=== PATIENT | male | born 1955 | race Caucasian/White ===

== ENCOUNTER 2019-02-06 17:39 | Emergency (ER) | payer MEDICARE, SELFPAY ==
[2019-02-06 17:47] VITALS: BP 109/78; PULSE 83; RESP 20; TEMP 36.9; O2SAT 96; BMI 31.5
--- NOTE | 2019-02-06 17:51 | DI.RAD.S_ITS ---
PROCEDURE: XR LUMBAR SPINE 2-3V INDICATIONS: fall 25 days ago, severe pain TECHNIQUE: 3 views of the lumbar spine were acquired. COMPARISON: CT abdomen and pelvis 05/14/2016. FINDINGS: Bones: 5 [id number] vertebrae are present. There is normal bony alignment. No vertebral body compression fractures. No suspicious bony lesions. Soft tissues: Overlying bowel gas pattern is nonobstructive. No suspicious soft tissue calcifications. Vascular calcifications. Stimulator device overlying the left back with the leads projecting over the lower thoracic spine. IMPRESSION: No acute osseous abnormality demonstrated. Dictated by: Kana Garber M.D. on 02/06/2019 at 18:30 Approved by: Kana Garber M.D. on 02/06/2019 at 18:34
--- NOTE | 2019-02-06 19:31 | DI.RAD.S_ITS ---
PROCEDURE: XR SACRUM COCCYX MIN 2V INDICATIONS: glf TECHNIQUE: 3 views of the sacrum and coccyx acquired. COMPARISON: Same day lumbar spine radiographs. FINDINGS: Bones: No fractures or dislocations. No suspicious bony lesions. Soft tissues: Visualized bowel gas pattern is normal. Vascular calcifications. No suspicious soft tissue densities. Generator device overlying the left. IMPRESSION: No fracture or dislocation seen. Dictated by: Kana Garber M.D. on 02/06/2019 at 20:06 Approved by: Kana Garber M.D. on 02/06/2019 at 20:06
[2019-02-06] MEDS: KETOROLAC 60 MG/2 ML VIAL IM (19:54)
[2019-02-06] MEDS: CYCLOBENZAPRINE 10 MG TABLET PO (19:54)
[2019-02-06] MEDS: LIDOCAINE PATCH 1 EACH ADH..PATCH TOP (19:55)
[2019-02-06] MEDS: HYDROCODONE/ACET 5/325 TABLET 1 TAB PO (20:36)
[2019-02-06 20:37] VITALS: BP 103/76; PULSE 94; RESP 17; O2SAT 98
--- NOTE | 2019-02-06 21:07 | ED.BACK ---
HPI - Back Pain/Injury <SHARON Solorzano - Last Filed: 02/06/19 21:39> General Chief Complaint: Back Pain/Injury Stated Complaint: BACK PAIN Time Seen by Provider: 02/06/19 18:52 Source: patient Mode of arrival: ambulatory Limitations: no limitations History of Present Illness HPI Narrative: The patient is a 63-year-old male current everyday smoker who presents with a chief complaint of lower back pain. He states he fell a month ago landed on his butt in the bathroom. He states he tripped and fell. The patient does admit that he is an alcoholic, drinking at least 6 drinks a night. He states he falls when he drinks. He does not want any help for his alcoholism, declines any thoughts of hurting himself or anybody else. Regarding his back pain he denies any incontinence of bowel, incontinence of bladder or saddle anesthesia. He has not taken anything for the pain other than alcohol. He presents requesting admission for his pain control and because he has no idea how he will get home today. He does state that his friend dropped him off. That he repeatedly states he does not want help for his alcoholism. Related Data Home Medications Medication Instructions Recorded Confirmed gabapentin [Neurontin] 3 tab PO TID #0 09/20/11 oxycodone-acetaminophen 1 - 2 tab PO Q4HP PRN #0 09/20/11 doxazosin [Cardura] 4 mg PO TID #0 04/22/16 cyclobenzaprine 1 tab PO TID #0 05/09/16 Previous Rx's Medication Instructions Recorded lorazepam [Ativan] 1 mg PO QHS PRN PRN #10 tab 05/17/16 oxycodone-acetaminophen 1 - 2 tab PO Q4HP PRN #20 tab 05/17/16 lorazepam [Ativan] 0.5 mg PO TIDP PRN #10 tab 05/28/16 cyclobenzaprine 10 mg PO TID PRN #14 tab 02/06/19 ketorolac 10 mg PO TID PRN #20 tab 02/06/19 lidocaine 1 patch TOP DAILY #15 each 02/06/19 Allergies Allergy/AdvReac Type Severity Reaction Status Date / Time No Known Drug Allergies Allergy Verified 02/06/19 17:50 Review of Systems <SHARON Solorzano - Last Filed: 02/06/19 21:39> Review of Systems GENERAL: Denies chills, fatigue, malaise, fever, sweats. HEENT: Denies sinus pain, ear pain, sore throat, difficulty swallowing, dizziness. RESPIRATORY: Denies dyspnea, cough, wheezing, hemoptysis, sputum. CARDIOVASCULAR: Denies chest pain, palpitations, orthopnea, edema, GASTROINTESTINAL: Denies nausea, vomiting, abdominal pain, diarrhea, constipation, melena. : Denies dysuria, frequency, incontinence, hematuria, urinary retention. MUSCULOSKELETAL: See HPI SKIN: Denies rash, skin lesions, or other NEUROLOGIC: Denies weakness, headache, numbness, change in speech, confusion, seizures, incoordination. PSYCHIATRIC: See HPI 12 point review of systems is negative except for those stated above PFSH <SHARON Solorzano - Last Filed: 02/06/19 21:39> Medical History (Updated 02/06/19 @ 21:37 by SHARON Solorzano) Alcohol abuse (Acute) Social History Smoking Status: Current every day smoker Social History Smoking Status: Current every day smoker Exam <SHARON Solorzano - Last Filed: 02/06/19 21:39> Narrative Exam Narrative: GENERAL: umkempt, chronically ill-appearing male lying on stretcher HEAD: Atraumatic. Normocephalic. No temporal or scalp tenderness. EYES: Pupils equal round and reactive. Extraocular motions intact. No scleral icterus. No injection or drainage. ENT: Nose without bleeding, purulent drainage or septal hematoma. Throat without erythema, tonsillar hypertrophy or exudate. Uvula midline. Airway patent. NECK: Trachea midline. No JVD or lymphadenopathy. Supple, nontender, no meningeal signs. CARDIOVASCULAR: Regular rate and rhythm RESPIRATORY: Diffuse expiratory wheezes to auscultation. Breath sounds equal bilaterally. No rales, or rhonchi. No increased respiratory effort. No accessory muscle use. No stridor. GASTROINTESTINAL: Abdomen soft, non-tender, nondistended. No hepato-splenomegaly, or palpable masses. No guarding. Active bowel sounds all 4 quadrants. EXTREMITIES: No clubbing, cyanosis, or edema. No joint tenderness, effusion, or edema noted. BACK: No pain to see her T-spine palpation. Patient has pain to L spine palpation as well as sacrum and coccyx. NEURO: AOx3. No gross cranial nerve deficit. Strength is equal upper and lower extremities bilaterally. Stable gait. SKIN: No rash or erythema. No ecchymosis noted on lower back or buttocks. Initial Vital Signs Initial Vital Signs: Vital Signs Temperature 98.4 F 02/06/19 17:47 Pulse Rate 83 02/06/19 17:47 Respiratory Rate 20 02/06/19 17:47 Blood Pressure 109/78 02/06/19 17:47 Pulse Oximetry 96 02/06/19 17:47 <Antonio Webb DO - Last Filed: 02/06/19 21:56> Initial Vital Signs Initial Vital Signs: Vital Signs Temperature 98.4 F 02/06/19 17:47 Pulse Rate 83 02/06/19 17:47 Respiratory Rate 20 02/06/19 17:47 Blood Pressure 109/78 02/06/19 17:47 Pulse Oximetry 96 02/06/19 17:47 Course <ANTONIO Solorzano-BC - Last Filed: 02/06/19 21:39> Orders Ordered: ED Orders 02/06/19 17:51 XR lumbar spine 2-3V Stat 02/06/19 19:31 XR sacrum coccyx min 2V Stat Discontinued Medications Hydrocodone Bitart/Acetaminophen ([place] 5/325) 1 tab PO NOW ONE Stop: 02/06/19 20:28 Last Admin: 02/06/19 20:36 Dose: 1 tab Cyclobenzaprine HCl (Flexeril) 10 mg PO NOW ONE Stop: 02/06/19 19:32 Last Admin: 02/06/19 19:54 Dose: 10 mg Ketorolac Tromethamine (Toradol) 60 mg IM NOW ONE Stop: 02/06/19 19:32 Last Admin: 02/06/19 19:54 Dose: 60 mg Lidocaine (Lidoderm) 1 each TOP NOW ONE Stop: 02/06/19 19:32 Last Admin: 02/06/19 19:55 Dose: 1 each Vital Signs - 8 hr 02/06/19 17:47 02/06/19 20:37 02/06/19 21:36 Temperature 98.4 F Pulse Rate 83 94 H 88 Respiratory Rate 20 17 16 Blood Pressure 109/78 Blood Pressure [Right Arm] 103/76 102/72 Pulse Oximetry 96 98 98 <Antonio Webb DO - Last Filed: 02/06/19 21:56> Orders Ordered: ED Orders 02/06/19 17:51 XR lumbar spine 2-3V Stat 02/06/19 19:31 XR sacrum coccyx min 2V Stat Discontinued Medications Hydrocodone Bitart/Acetaminophen ([place] 5/325) 1 tab PO NOW ONE Stop: 02/06/19 20:28 Last Admin: 02/06/19 20:36 Dose: 1 tab Cyclobenzaprine HCl (Flexeril) 10 mg PO NOW ONE Stop: 02/06/19 19:32 Last Admin: 02/06/19 19:54 Dose: 10 mg Ketorolac Tromethamine (Toradol) 60 mg IM NOW ONE Stop: 02/06/19 19:32 Last Admin: 02/06/19 19:54 Dose: 60 mg Lidocaine (Lidoderm) 1 each TOP NOW ONE Stop: 02/06/19 19:32 Last Admin: 02/06/19 19:55 Dose: 1 each Vital Signs - 8 hr 02/06/19 17:47 02/06/19 20:37 02/06/19 21:36 Temperature 98.4 F Pulse Rate 83 94 H 88 Respiratory Rate 20 17 16 Blood Pressure 109/78 Blood Pressure [Right Arm] 103/76 102/72 Pulse Oximetry 96 98 98 MDM - Back Pain/Injury <SHARON Solorzano - Last Filed: 02/06/19 21:39> Imaging Data L-spine x-ray: Radiologist's impression: [address] [address] XRay Report Signed Patient: Junior Stone GMR#: [id number] : 6Acct:[id number] Age/Sex: 63 / MDate of Service: 02/06/19 Loc: ED Accession Number: [id number] Procedure: XR lumbar spine 2-3V Ordering Provider: Saskia Blue D.O. PROCEDURE: XR LUMBAR SPINE 2-3V INDICATIONS: fall 25 days ago, severe pain TECHNIQUE: 3 views of the lumbar spine were acquired. COMPARISON: CT abdomen and pelvis 05/14/2016. FINDINGS: Bones: 5 [id number] vertebrae are present. There is normal bony alignment. No vertebral body compression fractures. No suspicious bony lesions. Soft tissues: Overlying bowel gas pattern is nonobstructive. No suspicious soft tissue calcifications. Vascular calcifications. Stimulator device overlying the left back with the leads projecting over the lower thoracic spine. IMPRESSION: No acute osseous abnormality demonstrated. Dictated by: Kana Garber M.D. on 02/06/2019 at 18:30 Approved by: Kana Garber M.D. on 02/06/2019 at 18:34 Sacrum and coccyx x-ray: Radiologist's impression: [address] [address] XRay Report Signed Patient: Junior Stone GMR#: [id number] : 6Acct:[id number] Age/Sex: 63 / MDate of Service: 02/06/19 Loc: ED Accession Number: [id number] Procedure: XR sacrum coccyx min 2V Ordering Provider: Saskia Mcghee PROCEDURE: XR SACRUM COCCYX MIN 2V INDICATIONS: glf TECHNIQUE: 3 views of the sacrum and coccyx acquired. COMPARISON: Same day lumbar spine radiographs. FINDINGS: Bones: No fractures or dislocations. No suspicious bony lesions. Soft tissues: Visualized bowel gas pattern is normal. Vascular calcifications. No suspicious soft tissue densities. Generator device overlying the left. IMPRESSION: No fracture or dislocation seen. Dictated by: Kana Garber M.D. on 02/06/2019 at 20:06 Approved by: Kana Garber M.D. on 02/06/2019 at 20:06 [facility] Narrative Medical decision making narrative: The patient is a 63-year-old male chronic alcoholic who presents a month after ground level fall with lower back pain. He has negative x-rays. He is neurovascularly intact. He is able to ambulate around the emergency department with a walker, which he states he has at home. The patient requests admission because he does not have a ride home, unfortunately this does not meet admission criteria. I did offer to help facilitate help for alcoholism, which the patient declined. He states he does not want hurt himself or anybody else. I do fear that if he continues to drink at the rate that he does, he will have more falls at home. I did speak at length with the patient's sister that the patient does not meet admission criteria. I encouraged him to follow up with primary care provider especially if the patient wants help for his alcoholism. Discussed coming back to the ER for any acute concerns. Discharge Plan Departure Patient Disposition: Home Clinical Impression: Fall from ground level, Alcoholism Back pain Qualifiers: Back pain location: low back pain Chronicity: acute Back pain laterality: bilateral Sciatica presence: without sciatica Qualified Code(s): M54.5 - Low back pain Discharge Date/Time: 02/06/19 21:44 Interventions: ED Discharge Assessment Last Done: 02/06/19 21:44 Instructions: Alcohol and Stress: There are Safer Ways to [place], Alcoholism (Alternative Therapy), Alcohol Use Disorder, DI for Low Back Pain, DI for Alcohol Abuse, How to Prevent Falls, DI for Back Strain or Sprain Activity Restrictions/Additional Instructions: Mr. Pacheco, please take care of yourself. As I discussed, I am concerned about your drinking and general self-care. Please do not drink too much as this increases your risk of injury. Your x-rays came back with no fracture. I have given you a small prescription of muscle relaxer, as well as lidocaine and anti-inflammatories. Do not combine Toradol with ibuprofen or Aleve. Please follow up with primary care provider. Please come back to the emergency department if needed. Prescriptions: New cyclobenzaprine 10 mg tablet 10 mg PO TID PRN (Reason: muscle spasm) Qty: 14 RF: 0 ketorolac 10 mg tablet 10 mg PO TID PRN (Reason: pain) Qty: 20 RF: 0 lidocaine 5 % adhesive patch,medicated 1 patch TOP DAILY Qty: 15 RF: 0 No Action gabapentin [Neurontin] 300 MG capsule 3 tab PO TID Qty: 0 RF: 0 oxycodone-acetaminophen 7.5 MG/325 MG tablet 1 - 2 tab PO Q4HP PRNQty: 0 RF: 0 doxazosin [Cardura] 1 MG tablet 4 mg PO TID Qty: 0 RF: 0 cyclobenzaprine 10 MG tablet 1 tab PO TID Qty: 0 RF: 0 oxycodone-acetaminophen 5 MG/325 MG tablet 1 - 2 tab PO Q4HP PRNQty: 20 RF: 0 lorazepam [Ativan] 1 MG tablet 1 mg PO QHS PRN PRNQty: 10 RF: 0 lorazepam [Ativan] 0.5 MG tablet 0.5 mg PO TIDP PRNQty: 10 RF: 0 <Antonio Webb DO - Last Filed: 02/06/19 21:56> [facility] ED Attending Gee Attestation: I was available for consultation during this patient's emergency department encounter
--- NOTE | 2019-02-06 21:09 | PC.NURSE ---
pt ambulated with walker all the way around the nurse's station, aware
--- NOTE | 2019-02-06 21:11 | ED_ITS ---
HPI - Back Pain/Injury <SHARON Solorzano - Last Filed: 02/06/19 21:39> General Chief Complaint: Back Pain/Injury Stated Complaint: BACK PAIN Time Seen by Provider: 02/06/19 18:52 Source: patient Mode of arrival: ambulatory Limitations: no limitations History of Present Illness HPI Narrative: The patient is a 63-year-old male current everyday smoker who presents with a chief complaint of lower back pain. He states he fell a month ago landed on his butt in the bathroom. He states he tripped and fell. The patient does admit that he is an alcoholic, drinking at least 6 drinks a night. He states he falls when he drinks. He does not want any help for his alcoholism, declines any thoughts of hurting himself or anybody else. Regarding his back pain he denies any incontinence of bowel, incontinence of bladder or saddle anesthesia. He has not taken anything for the pain other than alcohol. He presents requesting admission for his pain control and because he has no idea how he will get home today. He does state that his friend dropped him off. That he repeatedly states he does not want help for his alcoholism. Related Data Home Medications Medication Instructions Recorded Confirmed gabapentin [Neurontin] 3 tab PO TID #0 09/20/11 oxycodone-acetaminophen 1 - 2 tab PO Q4HP PRN #0 09/20/11 doxazosin [Cardura] 4 mg PO TID #0 04/22/16 cyclobenzaprine 1 tab PO TID #0 05/09/16 Previous Rx's Medication Instructions Recorded lorazepam [Ativan] 1 mg PO QHS PRN PRN #10 tab 05/17/16 oxycodone-acetaminophen 1 - 2 tab PO Q4HP PRN #20 tab 05/17/16 lorazepam [Ativan] 0.5 mg PO TIDP PRN #10 tab 05/28/16 cyclobenzaprine 10 mg PO TID PRN #14 tab 02/06/19 ketorolac 10 mg PO TID PRN #20 tab 02/06/19 lidocaine 1 patch TOP DAILY #15 each 02/06/19 Allergies Allergy/AdvReac Type Severity Reaction Status Date / Time No Known Drug Allergies Allergy Verified 02/06/19 17:50 Review of Systems <SHARON Solorzano - Last Filed: 02/06/19 21:39> Review of Systems GENERAL: Denies chills, fatigue, malaise, fever, sweats. HEENT: Denies sinus pain, ear pain, sore throat, difficulty swallowing, dizziness. RESPIRATORY: Denies dyspnea, cough, wheezing, hemoptysis, sputum. CARDIOVASCULAR: Denies chest pain, palpitations, orthopnea, edema, GASTROINTESTINAL: Denies nausea, vomiting, abdominal pain, diarrhea, constipation, melena. : Denies dysuria, frequency, incontinence, hematuria, urinary retention. MUSCULOSKELETAL: See HPI SKIN: Denies rash, skin lesions, or other NEUROLOGIC: Denies weakness, headache, numbness, change in speech, confusion, seizures, incoordination. PSYCHIATRIC: See HPI 12 point review of systems is negative except for those stated above PFSH <SHARON Solorzano - Last Filed: 02/06/19 21:39> Medical History (Updated 02/06/19 @ 21:37 by SHARON Solorzano) Alcohol abuse (Acute) Social History Smoking Status: Current every day smoker Social History Smoking Status: Current every day smoker Exam <SHARON Solorzano - Last Filed: 02/06/19 21:39> Narrative Exam Narrative: GENERAL: umkempt, chronically ill-appearing male lying on stretcher HEAD: Atraumatic. Normocephalic. No temporal or scalp tenderness. EYES: Pupils equal round and reactive. Extraocular motions intact. No scleral icterus. No injection or drainage. ENT: Nose without bleeding, purulent drainage or septal hematoma. Throat without erythema, tonsillar hypertrophy or exudate. Uvula midline. Airway patent. NECK: Trachea midline. No JVD or lymphadenopathy. Supple, nontender, no meningeal signs. CARDIOVASCULAR: Regular rate and rhythm RESPIRATORY: Diffuse expiratory wheezes to auscultation. Breath sounds equal bilaterally. No rales, or rhonchi. No increased respiratory effort. No accessory muscle use. No stridor. GASTROINTESTINAL: Abdomen soft, non-tender, nondistended. No hepato- splenomegaly, or palpable masses. No guarding. Active bowel sounds all 4 quadrants. EXTREMITIES: No clubbing, cyanosis, or edema. No joint tenderness, effusion, or edema noted. BACK: No pain to see her T-spine palpation. Patient has pain to L spine palp ation as well as sacrum and coccyx. NEURO: AOx3. No gross cranial nerve deficit. Strength is equal upper and lower extremities bilaterally. Stable gait. SKIN: No rash or erythema. No ecchymosis noted on lower back or buttocks. Initial Vital Signs Initial Vital Signs: Vital Signs Temperature 98.4 F 02/06/19 17:47 Pulse Rate 83 02/06/19 17:47 Respiratory Rate 20 02/06/19 17:47 Blood Pressure 109/78 02/06/19 17:47 Pulse Oximetry 96 02/06/19 17:47 <Antonio Webb DO - Last Filed: 02/06/19 21:56> Initial Vital Signs Initial Vital Signs: Vital Signs Temperature 98.4 F 02/06/19 17:47 Pulse Rate 83 02/06/19 17:47 Respiratory Rate 20 02/06/19 17:47 Blood Pressure 109/78 02/06/19 17:47 Pulse Oximetry 96 02/06/19 17:47 Course <SHARON Solorzano - Last Filed: 02/06/19 21:39> Orders Ordered: ED Orders 02/06/19 17:51 XR lumbar spine 2-3V Stat 02/06/19 19:31 XR sacrum coccyx min 2V Stat Discontinued Medications Hydrocodone Bitart/Acetaminophen ([place] 5/325) 1 tab PO NOW ONE Stop: 02/06/19 20:28 Last Admin: 02/06/19 20:36 Dose: 1 tab Cyclobenzaprine HCl (Flexeril) 10 mg PO NOW ONE Stop: 02/06/19 19:32 Last Admin: 02/06/19 19:54 Dose: 10 mg Ketorolac Tromethamine (Toradol) 60 mg IM NOW ONE Stop: 02/06/19 19:32 Last Admin: 02/06/19 19:54 Dose: 60 mg Lidocaine (Lidoderm) 1 each TOP NOW ONE Stop: 02/06/19 19:32 Last Admin: 02/06/19 19:55 Dose: 1 each Vital Signs - 8 hr 02/06/19 17:47 02/06/19 20:37 02/06/19 21:36 Temperature 98.4 F Pulse Rate 83 94 H 88 Respiratory Rate 20 17 16 Blood Pressure 109/78 Blood Pressure [Right Arm] 103/76 102/72 Pulse Oximetry 96 98 98 <Antonio Webb DO - Last Filed: 02/06/19 21:56> Orders Ordered: ED Orders 02/06/19 17:51 XR lumbar spine 2-3V Stat 02/06/19 19:31 XR sacrum coccyx min 2V Stat Discontinued Medications Hydrocodone Bitart/Acetaminophen ([place] 5/325) 1 tab PO NOW ONE Stop: 02/06/19 20:28 Last Admin: 02/06/19 20:36 Dose: 1 tab Cyclobenzaprine HCl (Flexeril) 10 mg PO NOW ONE Stop: 02/06/19 19:32 Last Admin: 02/06/19 19:54 Dose: 10 mg Ketorolac Tromethamine (Toradol) 60 mg IM NOW ONE Stop: 02/06/19 19:32 Last Admin: 02/06/19 19:54 Dose: 60 mg Lidocaine (Lidoderm) 1 each TOP NOW ONE Stop: 02/06/19 19:32 Last Admin: 02/06/19 19:55 Dose: 1 each Vital Signs - 8 hr 02/06/19 17:47 02/06/19 20:37 02/06/19 21:36 Temperature 98.4 F Pulse Rate 83 94 H 88 Respiratory Rate 20 17 16 Blood Pressure 109/78 Blood Pressure [Right Arm] 103/76 102/72 Pulse Oximetry 96 98 98 MDM - Back Pain/Injury <SHARON Solorzano - Last Filed: 02/06/19 21:39> Imaging Data L-spine x-ray: Radiologist's impression: [address] [address] XRay Report Signed Patient: Junior Stone GMR#: [id number] : [id number]:[id number] Age/Sex: 63 / MDate of Service: 02/06/19 Loc: ED Accession Number: [id number] Procedure: XR lumbar spine 2-3V Ordering Provider: Saskia Blue D.O. PROCEDURE: XR LUMBAR SPINE 2-3V INDICATIONS: fall 25 days ago, severe pain TECHNIQUE: 3 views of the lumbar spine were acquired. COMPARISON: CT abdomen and pelvis 05/14/2016. FINDINGS: Bones: 5 [id number] vertebrae are present. There is normal bony alignment. No vertebral body compression fractures. No suspicious bony lesions. Soft tissues: Overlying bowel gas pattern is nonobstructive. No suspicious soft tissue calcifications. Vascular calcifications. Stimulator device overlying the left back with the leads projecting over the lower thoracic spine. IMPRESSION: No acute osseous abnormality demonstrated. Dictated by: Kana Garber M.D. on 02/06/2019 at 18:30 Approved by: Kana Garber M.D. on 02/06/2019 at 18:34 Sacrum and coccyx x-ray: Radiologist's impression: [address] [address] XRay Report Signed Patient: Junior Stone GMR#: [id number] : 6Acct:[id number] Age/Sex: 63 / MDate of Service: 02/06/19 Loc: ED Accession Number: [id number] Procedure: XR sacrum coccyx min 2V Ordering Provider: Saskia Mcghee PROCEDURE: XR SACRUM COCCYX MIN 2V INDICATIONS: glf TECHNIQUE: 3 views of the sacrum and coccyx acquired. COMPARISON: Same day lumbar spine radiographs. FINDINGS: Bones: No fractures or dislocations. No suspicious bony lesions. Soft tissues: Visualized bowel gas pattern is normal. Vascular calcifications. No suspicious soft tissue densities. Generator device overlying the left. IMPRESSION: No fracture or dislocation seen. Dictated by: Kana Garber M.D. on 02/06/2019 at 20:06 Approved by: Kana Garber M.D. on 02/06/2019 at 20:06 [facility] Narrative Medical decision making narrative: The patient is a 63-year-old male chronic al coholic who presents a month after ground level fall with lower back pain. He has negative x-rays. He is neurovascularly intact. He is able to ambulate around the emergency department with a walker, which he states he has at home. The patient requests admission because he does not have a ride home, unfortunately this does not meet admission criteria. I did offer to help facilitate help for alcoholism, which the patient declined. He states he does not want hurt himself or anybody else. I do fear that if he continues to drink at the rate that he does, he will have more falls at home. I did speak at length with the patient's sister that the patient does not meet admission criteria. I encouraged him to follow up with primary care provider especially if the patient wants help for his alcoholism. Discussed coming back to the ER for any acute concerns. Discharge Plan Departure Patient Disposition: Home Clinical Impression: Fall from ground level, Alcoholism Back pain Qualifiers: Back pain location: low back pain Chronicity: acute Back pain laterality: bilateral Sciatica presence: without sciatica Qualified Code(s): M54.5 - Low back pain Discharge Date/Time: 02/06/19 21:44 Interventions: ED Discharge Assessment Last Done: 02/06/19 21:44 Instructions: Alcohol and Stress: There are Safer Ways to [place], Alcoholism (Alternative Therapy), Alcohol Use Disorder, DI for Low Back Pain, DI for Alcohol Abuse, How to Prevent Falls, DI for Back Strain or Sprain Activity Restrictions/Additional Instructions: Mr. Pacheco, please take care of yourself. As I discussed, I am concerned about your drinking and general self-care. Please do not drink too much as this increases your risk of injury. Your x-rays came back with no fracture. I have given you a small prescription of muscle relaxer, as well as lidocaine and anti-inflammatories. Do not combine Toradol with ibuprofen or Aleve. Please follow up with primary care provider. Please come back to the emergency department if needed. Prescriptions: New cyclobenzaprine 10 mg tablet 10 mg PO TID PRN (Reason: muscle spasm) Qty: 14 RF: 0 ketorolac 10 mg tablet 10 mg PO TID PRN (Reason: pain) Qty: 20 RF: 0 lidocaine 5 % adhesive patch,medicated 1 patch TOP DAILY Qty: 15 RF: 0 No Action gabapentin [Neurontin] 300 MG capsule 3 tab PO TID Qty: 0 RF: 0 oxycodone-acetaminophen 7.5 MG/325 MG tablet 1 - 2 tab PO Q4HP PRNQty: 0 RF: 0 doxazosin [Cardura] 1 MG tablet 4 mg PO TID Qty: 0 RF: 0 cyclobenzaprine 10 MG tablet 1 tab PO TID Qty: 0 RF: 0 oxycodone-acetaminophen 5 MG/325 MG tablet 1 - 2 tab PO Q4HP PRNQty: 20 RF: 0 lorazepam [Ativan] 1 MG tablet 1 mg PO QHS PRN PRNQty: 10 RF: 0 lorazepam [Ativan] 0.5 MG tablet 0.5 mg PO TIDP PRNQty: 10 RF: 0 <Antonio Webb DO - Last Filed: 02/06/19 21:56> Janet ED Attending Gee Attestation: I was available for consultation during this patient's emergency department encounter
[2019-02-06 21:36] VITALS: BP 102/72; PULSE 88; RESP 16; O2SAT 98
== END 2019-02-06 21:44 | disposition home or self-care (01) ==
PROVIDERS: Emergency Provider Nurse Practitioner Family
DX: M54.5 Low back pain (principal)
CPT/HCPCS: 72100; 72220; 96372; 99283; J1885

== ENCOUNTER 2019-03-30 17:31 | Inpatient (IN) | payer OTHER, SELFPAY ==
[2019-03-30] VITALS (8 sets, daily range): BP systolic 100–141; BP diastolic 49–80; PULSE 88–106; RESP 15–22; TEMP 36.4–36.6; O2SAT 95–100; BMI 29.8
--- NOTE | 2019-03-30 17:42 | DI.CT.S_ITS ---
PROCEDURE: CT HEAD/BRAIN WO CON INDICATIONS: Altered mental status TECHNIQUE: Noncontrast 4.5 mm thick angled axial sections acquired from the foramen magnum to the vertex, with coronal and sagittal reformats. For radiation dose reduction, the following was used: automated exposure control, adjustment of mA and/or kV according to patient size. COMPARISON: None. FINDINGS: Image quality: Excellent. CSF spaces: Basal cisterns are patent. No extra-axial fluid collections. Ventricles are normal in size and shape. Brain: No midline shift. No intracranial masses or hemorrhage. Franz-white matter interface is normal. Skull and face: Calvarium and visualized facial bones are intact, without suspicious lesions. Sinuses: Visualized sinuses and mastoids are clear. IMPRESSION: Source of altered mental status is not seen. The study appears normal for age. Dictated by: Puma Hernadez M.D. on 03/30/2019 at 18:09 Approved by: Puma Hernadez M.D. on 03/30/2019 at 18:09
[2019-03-30 17:49] LABS: Add Manual Diff / Slide Review NO; Basophils Absolute Auto 100 /uL (0-100); Basophils Percent Auto 0.5 % (0-2); Eosinophils Absolute Auto 0 /uL (0-450); Eosinophils Percent Auto 0.2 % (2-4); Hematocrit 34.7 % (41-53); Hemoglobin 11.5 g/dL (13.5-17.5); Lymphocytes Absolute Auto 1200 /uL (1100-4500); Lymphocytes Percent Auto 9.9 % (25-40); Mean Corpuscular HGB Conc 33.1 % (30-36); Mean Corpuscular Hemoglobin 34.9 PG (26-34); Mean Corpuscular Volume 105.3 fL (80-100); Monocytes Absolute Auto 1100 /uL (0-900); Monocytes Percent Auto 9.1 % (3-14); Neutrophils Absolute Auto 10000 /uL (1500-7000); Neutrophils Percent Auto 80.3 % (50-75); Platelet Count 200 X10^3/uL (150-400); Red Cell Distribution Width 15.9 % (11.6-14.8); White Blood Cell Count 12.5 X10^3/uL (4.5-11.0)
[2019-03-30 17:51] LABS: INR 1.3 (0.9-1.3); Prothrombin Time 15.6 SECONDS (10.1-12.7)
[2019-03-30 17:54] LABS: PTT Partial Thromboplastin Tim 36 SECONDS (26.4-36.2)
[2019-03-30 17:55] LABS: Acetaminophen < 10 ug/mL (10-30); Alanine Aminotransferase 26 IU/L (21-72); Albumin 2.9 g/dL (3.5-5.0); Albumin Globulin Ratio 0.8 (1.0-2.8); Alkaline Phosphatase 176 U/L (38-126); Aspartate Aminotransferase 61 IU/L (17-59); BUN Creatinine Ratio 18.6 (6-22); Bilirubin Total 2.6 mg/dL (0.2-1.3); Blood Urea Nitrogen 13 mg/dL (9-20); Carbon Dioxide 27 mmol/L (22-32); Chloride 103 mmol/L (98-107); Estimated Glomerular Filt Rate > 60.0 mL/min (>60); Ethanol (ETOH) < 10 mg/dL; Globulin 3.6 g/dL (1.7-4.1); Glucose 58 mg/dL (80-110); HEMOLYSIS < 15 (0-50); Lipase 213 U/L (23-300); Potassium 3.8 mmol/L (3.4-5.1); Sodium 137 mmol/L (137-145); Total Protein 6.5 g/dL (6.3-8.2)
[2019-03-30 18:06] LABS: Troponin I < 0.012 ng/mL (0.01-0.034)
[2019-03-30 18:11] LABS: Calcium 14.3 mg/dL (8.4-10.2)
--- NOTE | 2019-03-30 18:22 | DI.RAD.S_ITS ---
PROCEDURE: XR CHEST 1V INDICATIONS: AMS TECHNIQUE: One view of the chest was acquired. COMPARISON: [facility], CHEST 1 VIEW, 05/15/2016, 14:16. [facility], CHEST 1 VIEW, 05/14/2016, 3:24. FINDINGS: Surgical changes and devices: Spinal stimulator electrode seen over the lower third of the chest, presumably within the epidural space. Lungs and pleura: Lungs are clear. No pleural effusions or pneumothorax. Mediastinum: Mediastinal contours appear normal. Heart size is normal. Bones and chest wall: No suspicious bony lesions. Overlying soft tissues appear unremarkable. IMPRESSION: No pneumonia found, presumed epidural space spinal stimulator electrode plate and leads noted as discussed, previously present. Dictated by: Puma Hernadez M.D. on 03/30/2019 at 19:14 Approved by: Puma Hernadez M.D. on 03/30/2019 at 19:15
[2019-03-30 18:26] LABS: B Type Natriuretic Peptide 102 (<100)
--- NOTE | 2019-03-30 18:26 | ED.AMS ---
HPI - Altered Mental Status General Chief Complaint: Altered Mental Status Stated Complaint: altered mental status Time Seen by Provider: 03/30/19 17:41 Source: EMS Mode of arrival: EMS Limitations: altered mental status History of Present Illness HPI narrative: Patient is a 64-year-old male brought in by police for altered mental status. A welfare check was called on him by his sister. He was found down for an unknown length of time with altered mental status. He is a known alcoholic but denies drinking. He overall appears weak and confused. He is a poor historian but able to follow some commands. No sign of trauma he thinks it is 1998. MD complaint: altered mental status, confusion and weakness Related Data Home Medications Medication Instructions Recorded Confirmed gabapentin [Neurontin] 3 tab PO TID #0 09/20/11 oxycodone-acetaminophen 1 - 2 tab PO Q4HP PRN #0 09/20/11 doxazosin [Cardura] 4 mg PO TID #0 04/22/16 cyclobenzaprine 1 tab PO TID #0 05/09/16 Previous Rx's Medication Instructions Recorded lorazepam [Ativan] 1 mg PO QHS PRN PRN #10 tab 05/17/16 oxycodone-acetaminophen 1 - 2 tab PO Q4HP PRN #20 tab 05/17/16 lorazepam [Ativan] 0.5 mg PO TIDP PRN #10 tab 05/28/16 cyclobenzaprine 10 mg PO TID PRN #14 tab 02/06/19 ketorolac 10 mg PO TID PRN #20 tab 02/06/19 lidocaine 1 patch TOP DAILY #15 each 02/06/19 Allergies Allergy/AdvReac Type Severity Reaction Status Date / Time No Known Drug Allergies Allergy Verified 02/06/19 17:50 Review of Systems Review of Systems ROS Unobtainable: Unobtainable due to medical condition Patient History Medical/Surgical History Medical History Alcohol abuse (Acute) Back pain (Inactive) Pancreatitis (Inactive) Surgical History Surgical history unknown (Acute) Social History household members: none Smoking Status: Current every day smoker Family/Social History Social History household members: none Smoking Status: Current every day smoker alcohol intake frequency: 3 or more drinks per day Substance Use Type: does not use Exam Initial Vital Signs Initial Vital Signs: Vital Signs Temperature 97.6 F 03/30/19 17:42 Pulse Rate 94 H 03/30/19 17:42 Respiratory Rate 15 03/30/19 17:42 Blood Pressure 118/65 03/30/19 17:42 Pulse Oximetry 100 03/30/19 17:42 GENERAL: Week alert male HEENT: Head atraumatic,EOMI, pupils reactive, face symmetric, [moist] mucous membranes CARDIOVASCULAR: Regular rate and rhythm without murmurs, rubs or gallops. RESPIRATORY: Breath sounds equal bilaterally, no wheezes rales or rhonchi. ABDOMEN: Soft, mild lower diffuse tenderness no guarding or rebound no distension normal bowel sounds BACK: No sign of trauma EXTREMITIES: Normal range of motion, no clubbing or edema. Neurovascularly intact NEUROLOGICAL: Alert and oriented x1 good finger to nose. Unable to lift either leg up off the bed. SKIN: No erythema no contusion no vesicles or petechiae Course Orders Ordered: ED Orders 03/30/19 17:42 Consult to [employer] - Conventional Underwriter Stat CT head/brain wo con Stat 03/30/19 17:45 Acetaminophen Stat B Type Natriuretic Peptide Stat Complete Blood Count AUTO DIFF Stat Comprehensive Metabolic Panel Stat Creatine Kinase Stat Ethanol (ETOH) Stat Lipase Stat Partial Thromboplastin Time Stat Procalcitonin Stat Prothrombin Time INR Stat Troponin I Stat 03/30/19 18:16 EKG-12 Lead Stat 03/30/19 18:22 XR chest 1V Stat 03/30/19 18:33 Ammonia (NH3) Stat Lactate (Lactic Acid) Stat Type and Screen Stat 03/30/19 19:15 Ictotest Urine Stat Urinalysis and Microscopic Stat Urine Drug Screen, Rapid Stat 03/30/19 19:29 CT abdomen pelvis w con Stat Bisacodyl (Dulcolax) 10 mg KS DAILY PRN PRN Reason: Constipation Dextrose (D50w) 25 gm IV PRN PRN PRN Reason: Hypoglycemia Enoxaparin Sodium (Lovenox) 40 mg SUBCUT DAILY SARAH Folic Acid (Folic Acid) 1 mg PO DAILY SARAH Dextrose/Sodium Chloride (Dextrose 5%-0.9% Ns) 1,000 mls @ 150 mls/hr IV CONT SARAH Last Admin: 03/30/19 23:09 Dose: 150 mls/hr Documented by: NANO Ceftriaxone Sodium/Dextrose (Rocephin) 2 gm in 50 mls @ 100 mls/hr IV Q24H SARAH Magnesium Sulfate 2 gm/ Folic Acid 1 mg/ Thiamine HCl 100 mg / Multivitamins 10 ml/ Sodium Chloride 1,015.2 mls @ 125 mls/hr IV NOW ONE Stop: 03/31/19 07:34 Thiamine HCl 100 mg/ Dextrose 51 mls @ 204 mls/hr IV DAILY SARAH Lorazepam (Ativan) 0 mg IV CIWAPRN PRN; Protocol PRN Reason: Alcohol Withdrawal Last Admin: 03/30/19 23:10 Dose: 1 mg Documented by: NANO Ondansetron HCl (Zofran) 4 mg IV Q8HR PRN PRN Reason: Nausea And Vomiting Pantoprazole Sodium (Protonix) 40 mg IV DAILY SARAH Polyethylene Glycol (Miralax) 17 gm PO DAILY PRN PRN Reason: Constipation Discontinued Medications Calcitonin [place] (Miacalcin) 250 units SUBCUT NOW ONE Stop: 03/30/19 22:27 Last Admin: 03/30/19 22:50 Dose: 250 units Documented by: NANO Dextrose (D25w) 2.5 gm IV NOW ONE Stop: 03/30/19 18:32 Last Admin: 03/30/19 18:48 Dose: Not Given Documented by: ASHLEY Dextrose (D50w) 12.5 gm IV NOW ONE Stop: 03/30/19 18:49 Last Admin: 03/30/19 18:52 Dose: 12.5 gm Documented by: ASHLEY Sodium Chloride (Normal Saline 0.9%) 1,000 mls @ 150 mls/hr IV CONT SARAH Last Infusion: 03/30/19 21:40 Dose: 0 mls/hr Documented by: Admin: 03/30/19 18:32 Dose: 150 mls/hr Documented by: ASHLEY Sodium Chloride (Normal Saline 0.9%) 1,000 mls @ 1,000 mls/hr IV BOLUS ONE Stop: 03/30/19 19:25 Last Infusion: 03/30/19 20:25 Dose: 0 mls/hr Documented by: Admin: 03/30/19 18:32 Dose: 1,000 mls/hr Documented by: ASHLEY Sodium Chloride (Normal Saline 0.9%) 1,000 mls @ 1,000 mls/hr IV BOLUS ONE Stop: 03/30/19 22:44 Last Admin: 03/30/19 22:00 Dose: 1,000 mls/hr Documented by: NANO Zoledronic Acid 4 mg/ Sodium (Chloride) 105 mls @ 315 mls/hr IV NOW ONE Stop: 03/30/19 21:57 Last Admin: 03/30/19 23:08 Dose: 315 mls/hr Documented by: NANO Thiamine HCl 100 mg/ Dextrose 51 mls @ 204 mls/hr IV DAILY SARAH Consultations Consultation #1: PU[facility] P[facility]ER updated on patient's symptoms and test results. I recommend stopping with surgery in regards to CT. After surgery conversation he happily accepts patient and sees and evaluates him in the ED Time: 20:46 Consultation #2: Dr. Noel, at this time no indication for surgery. Time: 20:50 Vital Signs Vital signs: Vital Signs - 8 hr 03/30/19 17:42 03/30/19 19:00 03/30/19 19:08 Temperature 97.6 F Pulse Rate 94 H 89 88 Respiratory Rate 15 15 Blood Pressure 118/65 Blood Pressure [Left Arm] 141/60 H 141/66 H Pulse Oximetry 100 100 99 03/30/19 19:20 03/30/19 20:48 03/30/19 21:00 Temperature Pulse Rate 97 H 93 H 106 H Respiratory Rate 16 18 15 Blood Pressure Blood Pressure [Left Arm] 141/66 H 123/72 110/80 Pulse Oximetry 95 97 100 MDM - Altered Mental Status Lab Data Attestation: I reviewed the patient's lab results. Result diagrams: 03/30/19 17:45 03/30/19 17:45 Labs: Lab Results 03/30/19 03/30/19 03/30/19 Range/Units 17:45 17:45 17:45 WBC 12.5 H (4.5-11.0) X10^3/uL RBC 3.30 L (4.5-5.9) X10^6/uL Hgb 11.5 L (13.5-17.5) g/dL Hct 34.7 L (41-53) % MCV 105.3 H (80-100) fL MCH 34.9 H (26-34) PG MCHC 33.1 (30-36) % RDW 15.9 H (11.6-14.8) % Plt Count 200 (150-400) X10^3/uL Neut % (Auto) 80.3 H (50-75) % Lymph % (Auto) 9.9 L (25-40) % Wake % (Auto) 9.1 (3-14) % Eos % (Auto) 0.2 L (2-4) % Baso % (Auto) 0.5 (0-2) % Neut # (Auto) 06381 H (8838-4152) /uL Lymph # (Auto) 1200 (4697-1706) /uL Wake # (Auto) 1100 H (0-900) /uL Eos # (Auto) 0 (0-450) /uL Baso # (Auto) 100 (0-100) /uL PT (10.1-12.7) SECONDS INR (0.9-1.3) APTT (26.4-36.2) SECONDS Sodium 137 (137-145) mmol/L Potassium 3.8 (3.4-5.1) mmol/L Chloride 103 (98-107) mmol/L Carbon Dioxide 27 (22-32) mmol/L BUN 13 (9-20) mg/dL Creatinine 0.70 (0.66-1.25) mg/dL Estimated GFR > 60.0 (>60) mL/min BUN/Creatinine Ratio 18.6 (6-22) Glucose 58 L (80-110) mg/dL Lactate (0.7-2.1) mmol/L Calcium 14.3 H* (8.4-10.2) mg/dL Magnesium (1.6-2.3) mg/dL Total Bilirubin 2.6 H (0.2-1.3) mg/dL AST 61 H (17-59) IU/L ALT 26 (21-72) IU/L Alkaline Phosphatase 176 H (38-126) U/L Ammonia (9-30) umol/L Total Creatine Kinase (55-170) U/L Troponin I < 0.012 (0.01-0.034) ng/mL B-Natriuretic Peptide 102 H (<100) Total Protein 6.5 (6.3-8.2) g/dL Albumin 2.9 L (3.5-5.0) g/dL Globulin 3.6 (1.7-4.1) g/dL Albumin/Globulin Ratio 0.8 L (1.0-2.8) Lipase 213 (23-300) U/L Procalcitonin 0.86 H (<0.5) ng/mL Urine Color Urine Appearance Urine pH (4.5-8.0) Ur Specific [place] (1.000-1.035) Urine Protein (Negative) Urine Glucose (UA) (Negative) g/dL Urine Ketones (NEGATIVE) Urine Occult Blood (Negative) Urine Nitrate (Negative) Urine Bilirubin (NEGATIVE) Urine Ictotest (Negative) Urine Urobilinogen (0.2) E.U./dL Ur Leukocyte Esterase (NEGATIVE) Urine RBC (0-5/HPF) Urine WBC (0-5/HPF) Amorphous Sediment Urine Bacteria (None) Urine Mucus (Negative) Ur Culture Indicated? U Morph 300 ng/mL cutoff (Negative) Ur Oxycodone Screen (Negative) Urine Methadone Screen (Negative) Acetaminophen < 10 L (10-30) ug/mL Ur Barbiturates Screen (Negative) U Tricyclic Antidepress (Negative) Ur Phencyclidine Scrn (Negative) Ur Amphetamines Screen (Negative) U Methamphetamines Scrn (Negative) Ur MDMA Scrn (Ecstasy) (Negative) U Benzodiazepines Scrn (Negative) Urine Cocaine Screen (Negative) U Marijuana (THC) Screen (Negative) Ethyl Alcohol < 10 ( - 10) mg/dL Blood Type Antibody Screen 03/30/19 03/30/19 03/30/19 Range/Units 17:45 17:45 18:33 WBC (4.5-11.0) X10^3/uL RBC (4.5-5.9) X10^6/uL Hgb (13.5-17.5) g/dL Hct (41-53) % MCV (80-100) fL MCH (26-34) PG MCHC (30-36) % RDW (11.6-14.8) % Plt Count (150-400) X10^3/uL Neut % (Auto) (50-75) % Lymph % (Auto) (25-40) % Wake % (Auto) (3-14) % Eos % (Auto) (2-4) % Baso % (Auto) (0-2) % Neut # (Auto) (1640-2314) /uL Lymph # (Auto) (9302-4087) /uL Wake # (Auto) (0-900) /uL Eos # (Auto) (0-450) /uL Baso # (Auto) (0-100) /uL PT 15.6 H (10.1-12.7) SECONDS INR 1.3 (0.9-1.3) APTT 36 (26.4-36.2) SECONDS Sodium (137-145) mmol/L Potassium (3.4-5.1) mmol/L Chloride (98-107) mmol/L Carbon Dioxide (22-32) mmol/L BUN (9-20) mg/dL Creatinine (0.66-1.25) mg/dL Estimated GFR (>60) mL/min BUN/Creatinine Ratio (6-22) Glucose (80-110) mg/dL Lactate 1.6 (0.7-2.1) mmol/L Calcium (8.4-10.2) mg/dL Magnesium (1.6-2.3) mg/dL Total Bilirubin (0.2-1.3) mg/dL AST (17-59) IU/L ALT (21-72) IU/L Alkaline Phosphatase (38-126) U/L Ammonia (9-30) umol/L Total Creatine Kinase 58 (55-170) U/L Troponin I (0.01-0.034) ng/mL B-Natriuretic Peptide (<100) Total Protein (6.3-8.2) g/dL Albumin (3.5-5.0) g/dL Globulin (1.7-4.1) g/dL Albumin/Globulin Ratio (1.0-2.8) Lipase (23-300) U/L Procalcitonin (<0.5) ng/mL Urine Color Urine Appearance Urine pH (4.5-8.0) Ur Specific [place] (1.000-1.035) Urine Protein (Negative) Urine Glucose (UA) (Negative) g/dL Urine Ketones (NEGATIVE) Urine Occult Blood (Negative) Urine Nitrate (Negative) Urine Bilirubin (NEGATIVE) Urine Ictotest (Negative) Urine Urobilinogen (0.2) E.U./dL Ur Leukocyte Esterase (NEGATIVE) Urine RBC (0-5/HPF) Urine WBC (0-5/HPF) Amorphous Sediment Urine Bacteria (None) Urine Mucus (Negative) Ur Culture Indicated? U Morph 300 ng/mL cutoff (Negative) Ur Oxycodone Screen (Negative) Urine Methadone Screen (Negative) Acetaminophen (10-30) ug/mL Ur Barbiturates Screen (Negative) U Tricyclic Antidepress (Negative) Ur Phencyclidine Scrn (Negative) Ur Amphetamines Screen (Negative) U Methamphetamines Scrn (Negative) Ur MDMA Scrn (Ecstasy) (Negative) U Benzodiazepines Scrn (Negative) Urine Cocaine Screen (Negative) U Marijuana (THC) Screen (Negative) Ethyl Alcohol ( - 10) mg/dL Blood Type Antibody Screen 03/30/19 03/30/19 03/30/19 Range/Units 18:33 18:33 18:33 WBC (4.5-11.0) X10^3/uL RBC (4.5-5.9) X10^6/uL Hgb (13.5-17.5) g/dL Hct (41-53) % MCV (80-100) fL MCH (26-34) PG MCHC (30-36) % RDW (11.6-14.8) % Plt Count (150-400) X10^3/uL Neut % (Auto) (50-75) % Lymph % (Auto) (25-40) % Wake % (Auto) (3-14) % Eos % (Auto) (2-4) % Baso % (Auto) (0-2) % Neut # (Auto) (5037-6875) /uL Lymph # (Auto) (5825-7211) /uL Wake # (Auto) (0-900) /uL Eos # (Auto) (0-450) /uL Baso # (Auto) (0-100) /uL PT (10.1-12.7) SECONDS INR (0.9-1.3) APTT (26.4-36.2) SECONDS Sodium (137-145) mmol/L Potassium (3.4-5.1) mmol/L Chloride (98-107) mmol/L Carbon Dioxide (22-32) mmol/L BUN (9-20) mg/dL Creatinine (0.66-1.25) mg/dL Estimated GFR (>60) mL/min BUN/Creatinine Ratio (6-22) Glucose (80-110) mg/dL Lactate (0.7-2.1) mmol/L Calcium (8.4-10.2) mg/dL Magnesium 1.9 (1.6-2.3) mg/dL Total Bilirubin (0.2-1.3) mg/dL AST (17-59) IU/L ALT (21-72) IU/L Alkaline Phosphatase (38-126) U/L Ammonia 13.0 (9-30) umol/L Total Creatine Kinase (55-170) U/L Troponin I (0.01-0.034) ng/mL B-Natriuretic Peptide (<100) Total Protein (6.3-8.2) g/dL Albumin (3.5-5.0) g/dL Globulin (1.7-4.1) g/dL Albumin/Globulin Ratio (1.0-2.8) Lipase (23-300) U/L Procalcitonin (<0.5) ng/mL Urine Color Urine Appearance Urine pH (4.5-8.0) Ur Specific [place] (1.000-1.035) Urine Protein (Negative) Urine Glucose (UA) (Negative) g/dL Urine Ketones (NEGATIVE) Urine Occult Blood (Negative) Urine Nitrate (Negative) Urine Bilirubin (NEGATIVE) Urine Ictotest (Negative) Urine Urobilinogen (0.2) E.U./dL Ur Leukocyte Esterase (NEGATIVE) Urine RBC (0-5/HPF) Urine WBC (0-5/HPF) Amorphous Sediment Urine Bacteria (None) Urine Mucus (Negative) Ur Culture Indicated? U Morph 300 ng/mL cutoff (Negative) Ur Oxycodone Screen (Negative) Urine Methadone Screen (Negative) Acetaminophen (10-30) ug/mL Ur Barbiturates Screen (Negative) U Tricyclic Antidepress (Negative) Ur Phencyclidine Scrn (Negative) Ur Amphetamines Screen (Negative) U Methamphetamines Scrn (Negative) Ur MDMA Scrn (Ecstasy) (Negative) U Benzodiazepines Scrn (Negative) Urine Cocaine Screen (Negative) U Marijuana (THC) Screen (Negative) Ethyl Alcohol ( - 10) mg/dL Blood Type O Positive Antibody Screen Negative 03/30/19 03/30/19 Range/Units 19:15 19:15 WBC (4.5-11.0) X10^3/uL RBC (4.5-5.9) X10^6/uL Hgb (13.5-17.5) g/dL Hct (41-53) % MCV (80-100) fL MCH (26-34) PG MCHC (30-36) % RDW (11.6-14.8) % Plt Count (150-400) X10^3/uL Neut % (Auto) (50-75) % Lymph % (Auto) (25-40) % Wake % (Auto) (3-14) % Eos % (Auto) (2-4) % Baso % (Auto) (0-2) % Neut # (Auto) (1026-2449) /uL Lymph # (Auto) (1031-9352) /uL Wake # (Auto) (0-900) /uL Eos # (Auto) (0-450) /uL Baso # (Auto) (0-100) /uL PT (10.1-12.7) SECONDS INR (0.9-1.3) APTT (26.4-36.2) SECONDS Sodium (137-145) mmol/L Potassium (3.4-5.1) mmol/L Chloride (98-107) mmol/L Carbon Dioxide (22-32) mmol/L BUN (9-20) mg/dL Creatinine (0.66-1.25) mg/dL Estimated GFR (>60) mL/min BUN/Creatinine Ratio (6-22) Glucose (80-110) mg/dL Lactate (0.7-2.1) mmol/L Calcium (8.4-10.2) mg/dL Magnesium (1.6-2.3) mg/dL Total Bilirubin (0.2-1.3) mg/dL AST (17-59) IU/L ALT (21-72) IU/L Alkaline Phosphatase (38-126) U/L Ammonia (9-30) umol/L Total Creatine Kinase (55-170) U/L Troponin I (0.01-0.034) ng/mL B-Natriuretic Peptide (<100) Total Protein (6.3-8.2) g/dL Albumin (3.5-5.0) g/dL Globulin (1.7-4.1) g/dL Albumin/Globulin Ratio (1.0-2.8) Lipase (23-300) U/L Procalcitonin (<0.5) ng/mL Urine Color Yellow Urine Appearance Sl cloudy Urine pH 5.5 (4.5-8.0) Ur Specific [place] 1.020 (1.000-1.035) Urine Protein Trace H (Negative) Urine Glucose (UA) Negative (Negative) g/dL Urine Ketones Trace H (NEGATIVE) Urine Occult Blood Negative (Negative) Urine Nitrate Negative (Negative) Urine Bilirubin 1+ H (NEGATIVE) Urine Ictotest Positive H (Negative) Urine Urobilinogen 4.0 H (0.2) E.U./dL Ur Leukocyte Esterase Negative (NEGATIVE) Urine RBC None seen (0-5/HPF) Urine WBC None seen (0-5/HPF) Amorphous Sediment 1+ Urine Bacteria None seen (None) Urine Mucus 1+ H (Negative) Ur Culture Indicated? Cult not indicated U Morph 300 ng/mL cutoff Negative (Negative) Ur Oxycodone Screen Negative (Negative) Urine Methadone Screen Negative (Negative) Acetaminophen (10-30) ug/mL Ur Barbiturates Screen Negative (Negative) U Tricyclic Antidepress Negative (Negative) Ur Phencyclidine Scrn Negative (Negative) Ur Amphetamines Screen Negative (Negative) U Methamphetamines Scrn Negative (Negative) Ur MDMA Scrn (Ecstasy) Negative (Negative) U Benzodiazepines Scrn Negative (Negative) Urine Cocaine Screen Negative (Negative) U Marijuana (THC) Screen Negative (Negative) Ethyl Alcohol ( - 10) mg/dL Blood Type Antibody Screen Point of Care Testing Glucose POC 76 corrected Ca 15.[address] scan - head: Radiologist's impression: PROCEDURE: CT HEAD/BRAIN WO CON INDICATIONS: Altered mental status TECHNIQUE: Noncontrast 4.5 mm thick angled axial sections acquired from the foramen magnum to the vertex, with coronal and sagittal reformats. For radiation dose reduction, the following was used: automated exposure control, adjustment of mA and/or kV according to patient size. COMPARISON: None. FINDINGS: Image quality: Excellent. CSF spaces: Basal cisterns are patent. No extra-axial fluid collections. Ventricles are normal in size and shape. Brain: No midline shift. No intracranial masses or hemorrhage. Franz-white matter interface is normal. Skull and face: Calvarium and visualized facial bones are intact, without suspicious lesions. Sinuses: Visualized sinuses and mastoids are clear. IMPRESSION: Source of altered mental status is not seen. The study appears normal for age. Dictated by: Puma Hernadez M.D. on 03/30/2019 at 18:09 Chest x-ray: Radiologist's impression: PROCEDURE: XR CHEST 1V INDICATIONS: AMS TECHNIQUE: One view of the chest was acquired. COMPARISON: [facility], , CHEST 1 VIEW, 05/15/2016, 14:16. [facility], CHEST 1 VIEW, 05/14/2016, 3:24. FINDINGS: Surgical changes and devices: Spinal stimulator electrode seen over the lower third of the chest, presumably within the epidural space. Lungs and pleura: Lungs are clear. No pleural effusions or pneumothorax. Mediastinum: Mediastinal contours appear normal. Heart size is normal. Bones and chest wall: No suspicious bony lesions. Overlying soft tissues appear unremarkable. IMPRESSION: No pneumonia found, presumed epidural space spinal stimulator electrode plate and leads noted as discussed, previously present. Dictated by: Puma Hernadez M.D. on 03/30/2019 at 19:14 Approved by: Puma Hernadez M.D. on 03/30/2019 at 19:15 CT scan - abdomen: Radiologist's impression: ROCEDURE: CT ABDOMEN PELVIS W CON INDICATIONS: pain bloating TECHNIQUE: After the administration of intravenous contrast, 5 mm thick sections acquired from the diaphragm to the symphysis. 5 mm coronal and sagittal reformats were acquired. For radiation dose reduction, the following was used: automated exposure control, adjustment of mA and/or kV according to patient size. COMPARISON: [facility], CT, ABDOMEN/PELVIS WITH CONTRAST, 05/14/2016, 13:55. FINDINGS: Image quality: Excellent. ABDOMEN: Lung bases: Lung bases are clear except for what appears to be mild atelectasis or early pneumonia right lower lung, seen within the medial and lateral segments right middle lobe at their inferior border. Heart size is normal. Solid organs: Liver is normal in size and enhancement but appears nodular in its margination worrisome for representing cirrhosis. Gallbladder appears normal. Biliary system is non dilated. Pancreas enhances through the head neck and body but the pancreatic tail there is a area of low attenuation, with an upper associated rounded 25 Hounsfield unit area potentially a manifestation of sequela of prior necrotizing and pseudocyst given the appearance of severe pancreatitis and peripancreatic fluid collections from 2016. This measures approximately 3.5 cm in maximal dimension when its borders are taken into account. Spleen is normal in size and enhancement. No adrenal nodules. Kidneys demonstrate normal size and enhancement, without hydronephrosis. Peritoneum and bowel: Bowel loops demonstrate normal wall thickness and caliber. No free air. Free fluid present within the peritoneal space and be seen, without definite peritoneal masses or enhancement. This extends from the abdomen into the pelvis to a mild to moderate degree. Nodes and vessels: No retroperitoneal or mesenteric adenopathy by size criteria. Aorta and inferior vena cava are normal in size. Miscellaneous: No ventral hernias. PELVIS: Genitourinary: Bladder wall thickness is normal. A Tolentino catheter empties the bladder lumen. Miscellaneous: No inguinal hernias or adenopathy. Bones: No suspicious bony lesions. No vertebral body compression fractures. IMPRESSION: 1. Prior CT scan he has documented evidence of severe pancreatitis with peripancreatic pseudocysts and intrapancreatic necrosis and fluid collections. Currently at the pancreatic tail there is a hypodensity with internal fluid containing material measuring up to 25 Hounsfield units, showing maximal axial dimension of up to 3.5 cm. This should be further assessed on followup depending on the clinical status to determine whether pancreatic cystic neoplasm versus residual or recent pseudocyst formation explains this abnormality. 2. Cirrhotic margination of the liver, ascites. Suspect cirrhosis and early portal hypertension. The Complete bladder emptying by a Tolentino catheter now in place. Dictated by: Puma Hernadez M.D. on 03/30/2019 at 20:17 ECG Data Attestation: I personally reviewed and interpreted this ECG as follows: Prior ECG tracings: available for review Interpretation: Normal sinus rhythm rate 89 p.r. interval 190 QRS 93 [address] elevations depressions or T-wave inversions similar to previous EKGs MDM Narrative Medical decision making narrative: Patient is overall confused. He is found to be hypercalcemic and hypoglycemic. IV fluids started to treat the hypercalcemia Tolentino catheter placed to monitor urine output. He does have an elevated procalcitonin no obvious source of infection. He was slightly tender on his abdominal exam CT shows pancreatic tail fluid collection versus malignancy. Lipase is within normal limits. He is also deaf slightly elevated bilirubin of 2.6 normal liver enzymes slight elevation of alkaline phosphate 176 no specific right upper quadrant pain. His CT did not suggest any gallbladder issue. Is relatively confused on his alcohol level is 0 he states he did not drink anything yesterday either questionable DTs. Tachycardic he has some mild tremors. Patient does not appear septic he is afebrile normal lactic acid mild leukocytosis. Discussed with admitting is hospitalist he will start broad range antibiotics. At this time no indication for any surgery. Hemodynamically stable. Generally weak and confused. Patient admitted for hypoglycemia and hypercalcemia. Discharge Plan Departure Patient Disposition: Admitted As Inpatient Clinical Impression: Hypercalcemia, Hypoglycemia Discharge Date/Time: 03/30/19 21:40 Admit Date/Time: 03/30/19 21:09 Admit Provider: Tito Bartholomew
[2019-03-30] MEDS: SODIUM CHLORIDE 0.9% 1,000 ML 1000 ML IV ×2 (18:32→22:00)
[2019-03-30] MEDS: SODIUM CHLORIDE 0.9% 1,000 ML 150 ML IV (18:32)
[2019-03-30 18:42] LABS: Procalcitonin 0.86 ng/mL (<0.5)
[2019-03-30 18:52] LABS: Creatine Kinase 58 U/L (55-170)
[2019-03-30] MEDS: DEXTROSE 50 % IN WATER 25 GM/50 ML SYRINGE IV (18:52)
[2019-03-30 18:57] LABS: Lactate (Lactic Acid) 1.6 mmol/L (0.7-2.1)
--- NOTE | 2019-03-30 19:02 | PC.NURSE ---
I spoke with the Pt's sister who lives in [place] and is currently recovering from an illness in [place]. 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 10 years ago. Pt has back surgery subsequent to the injury and had a spinal stimulator put in place. Per the sister the stimulator is currently non-operable. Sister stated Pt was managing his pain with oxycodone until fired by his physician for non-compliance with appropriate treatment, at which point he began managing his pain with alcohol-approx 3+ years ago. Sister states Pt drinks over a 5th of liquor a day and smokes at least a pack of cigarettes. He currently gets medication from [place] (Dr. Judd) although according to his sister he does not take narcotics currently. Sister states Pt has been hospitalized for pancreatitis in the past due to his drinking. Sister states she has not been able to get ahold of him for several days and called the police today to conduct a welfare check fearing he may be . She states Pt was complaining to friend earlier in the week of significant abdominal tenderness and was concerned. Sister states she is available 24 hours a day to assist with information as necessary. Details are in the Demographics section.
[2019-03-30 19:28] LABS: Bacteria Urine None Seen; RBC Urine None Seen (0-5/HPF); WBC Urine None Seen (0-5/HPF)
--- NOTE | 2019-03-30 19:29 | DI.CT.S_ITS ---
ROCEDURE: CT ABDOMEN PELVIS W CON INDICATIONS: pain bloating TECHNIQUE: After the administration of intravenous contrast, 5 mm thick sections acquired from the diaphragm to the symphysis. 5 mm coronal and sagittal reformats were acquired. For radiation dose reduction, the following was used: automated exposure control, adjustment of mA and/or kV according to patient size. COMPARISON: Merged With [facility], CT, ABDOMEN/PELVIS WITH CONTRAST, 05/14/2016, 13:55. FINDINGS: Image quality: Excellent. ABDOMEN: Lung bases: Lung bases are clear except for what appears to be mild atelectasis or early pneumonia right lower lung, seen within the medial and lateral segments right middle lobe at their inferior border. Heart size is normal. Solid organs: Liver is normal in size and enhancement but appears nodular in its margination worrisome for representing cirrhosis. Gallbladder appears normal. Biliary system is non dilated. Pancreas enhances through the head neck and body but the pancreatic tail there is a area of low attenuation, with an upper associated rounded 25 Hounsfield unit area potentially a manifestation of sequela of prior necrotizing and pseudocyst given the appearance of severe pancreatitis and peripancreatic fluid collections from 2016. This measures approximately 3.5 cm in maximal dimension when its borders are taken into account. Spleen is normal in size and enhancement. No adrenal nodules. Kidneys demonstrate normal size and enhancement, without hydronephrosis. Peritoneum and bowel: Bowel loops demonstrate normal wall thickness and caliber. No free air. Free fluid present within the peritoneal space and be seen, without definite peritoneal masses or enhancement. This extends from the abdomen into the pelvis to a mild to moderate degree. Nodes and vessels: No retroperitoneal or mesenteric adenopathy by size criteria. Aorta and inferior vena cava are normal in size. Miscellaneous: No ventral hernias. PELVIS: Genitourinary: Bladder wall thickness is normal. A Tolentino catheter empties the bladder lumen. Miscellaneous: No inguinal hernias or adenopathy. Bones: No suspicious bony lesions. No vertebral body compression fractures. IMPRESSION: 1. Prior CT scan he has documented evidence of severe pancreatitis with peripancreatic pseudocysts and intrapancreatic necrosis and fluid collections. Currently at the pancreatic tail there is a hypodensity with internal fluid containing material measuring up to 25 Hounsfield units, showing maximal axial dimension of up to 3.5 cm. This should be further assessed on followup depending on the clinical status to determine whether pancreatic cystic neoplasm versus residual or recent pseudocyst formation explains this abnormality. 2. Cirrhotic margination of the liver, ascites. Suspect cirrhosis and early portal hypertension. The Complete bladder emptying by a Tolentino catheter now in place. Dictated by: Puma Hernadez M.D. on 03/30/2019 at 20:17 Approved by: Puam Hernadez M.D.on 03/30/2019 at 20:23
[2019-03-30 19:37] LABS: Appearance Urine UA SL CLOUDY; Bilirubin Urine UA 1+ (NEGATIVE); Color Urine UA YELLOW; Glucose Urine UA NEGATIVE (Negative); Ketones Urine UA TRACE (NEGATIVE); Leukocyte Esterase Urine UA NEGATIVE (NEGATIVE); Nitrite Urine UA NEGATIVE (Negative); Occult Blood Urine UA NEGATIVE (Negative); Protein Urine UA TRACE (Negative); pH Urine UA 5.5 (4.5-8.0)
[2019-03-30 19:46] LABS: Amorphous Sediment Urine 1+; Culture Indicated Urine Cult Not Indicated; Ictotest Urine Positive (Negative); Mucus Urine 1+ (Negative)
[2019-03-30 19:58] LABS: UR Morphine/Opiate cutoff 300 Negative (Negative); Ur Creatinine Normal (Normal); Ur Specific Gravity Normal (Normal); Urine Amphetamines Negative (Negative); Urine Barbiturates Negative (Negative); Urine Benzodiazepines Negative (Negative); Urine Cocaine Negative (Negative); Urine MDMA Negative (Negative); Urine Methadone Negative (Negative); Urine Methamphetamines Negative (Negative); Urine Oxycodone Negative (Negative); Urine Phencyclidine Negative (Negative); Urine Tetrahydrocannabinol Negative (Negative); Urine Tricyclic Antidepressant Negative (Negative); Urine pH Normal (Normal)
--- NOTE | 2019-03-30 22:17 | PM.HP.1 ---
History of Present Illness History of Present Illness Date Patient Seen: 03/30/19 Time Patient Seen: 21:13 Chief complaint: altered mental status Narrative: Mr. Edson Stone is a 64-year-old male patient with history significant for chronic alcohol abuse, alcoholic pancreatitis, nicotine dependence and chronic back pain who presents to the ER via EMS with altered mental status. A family member had called police requesting a welfare check on the patient. On their arrival the patient was found down and minimally responsive. The patient is unable to provide any meaningful information as he is lethargic requiring repeated stimulation to respond to questions and disoriented providing varying responses to the year as 1998 or 1992. Patient is unable to provide subjective information however he does groan with movement and grimace on abdominal palpation. Upon arrival in the ER the patient is found to be afebrile with temperature 97.6?, heart rate of 98, blood pressure of 118/65, respiratory rate of 15 saturating 100% on room air. The patient was initially found to be hypoglycemic and had admitting blood glucose of 58 after which he received 25 g sugar IV with no change in presentation. Patient underwent a CT of the head which found no significant intracranial pathology and brain structures normal for age. Chest x-ray is unremarkable and a CT of the abdomen pelvis reveals a possible early right lower lobe pneumonia, nodular liver consistent with cirrhosis, gallbladder is normal no biliary dilatation, pancreas tail presents an area of hypodensity with internal fluid is noted be possibly related to prior necrotizing pancreatitis possible pseudocyst, abdominal free fluid is also noted. On laboratory testing the patient has a white count of 12.5 with a hemoglobin of 11.5 and hematocrit 34.7 and platelets of 200. His PT is 15.6 with a PTT of 36 and INR 1.3. His electrolytes are within normal range and has a BUN of 13 and creatinine of 0.7. As noted his glucose was 58. His calcium is severely elevated at 14.3. He has a total bilirubin of 2.6 with an AST of 61 and an ALT of 26, alkaline phosphatase 176, ammonia 13 and lipase of 213. His albumin is 2.9. He has procalcitonin 0.86 and lactic acid 1.6. Urinalysis obtained which finds trace protein and ketones but no blood nitrates or leukocyte esterase. Tox screen is negative with a BAL less than 10. The patient admitted to the hospital for altered mental status of unknown etiology possible alcohol withdrawal, hypoglycemia and hypercalcemia. Patient History Medical History Alcohol abuse (Acute) Back pain (Inactive) Pancreatitis (Inactive) Surgical History Surgical history unknown (Acute) Social History household members: none Smoking Status: Current every day smoker Family & Social History Safety & Behavioral: Feels Safe in Current Yes Environment Been Physically Hurt or No Threatened By a Person Tobacco & Substance use: Smoking Status Current every day smoker alcohol intake frequency 3 or more drinks per day Substance Use Type does not use Comment: The patient is unable to provide family or social history therefore the following information is gleaned from the medical record. The patient lives alone with family involvement. No family history heart disease, diabetes or colon cancer. Smoking: Last known the patient is a current every day smoker unknown quantity. Alcohol: The patient currently drinks with history between 3 and 6 drinks per day. Substance use: Patient previously was a daily user of cannabis. Advanced directives: The patient is disoriented and unable to state his resuscitation preferences. At this time the patient is made FULL CODE. This will need to be revisited when the patient is lucid. Patient is unable to clear a surrogate decision maker and no one has been designated within the medical record. Meds Home Medications and Allergies Home Medications Medication Instructions Recorded Confirmed Type gabapentin [Neurontin] 3 tab PO TID #0 09/20/11 History oxycodone-acetaminophen 1 - 2 tab PO Q4HP PRN #0 09/20/11 History doxazosin [Cardura] 4 mg PO TID #0 04/22/16 History cyclobenzaprine 1 tab PO TID #0 05/09/16 History lorazepam [Ativan] 1 mg PO QHS PRN PRN #10 tab 05/17/16 Rx oxycodone-acetaminophen 1 - 2 tab PO Q4HP PRN #20 tab 05/17/16 Rx lorazepam [Ativan] 0.5 mg PO TIDP PRN #10 tab 05/28/16 Rx cyclobenzaprine 10 mg PO TID PRN #14 tab 02/06/19 Rx ketorolac 10 mg PO TID PRN #20 tab 02/06/19 Rx lidocaine 1 patch TOP DAILY #15 each 02/06/19 Rx Allergies Allergy/AdvReac Type Severity Reaction Status Date / Time No Known Drug Allergies Allergy Verified 02/06/19 17:50 Review of Systems Review of Systems ROS Unobtainable: unobtainable due to mental status (The patient is obtunded and unable to provide subjective input.) Exam Vital Signs (past 8 hours): - 03/30/19 17:42 03/30/19 19:00 03/30/19 19:08 Temperature 97.6 F Pulse Rate 94 H 89 88 Respiratory Rate 15 15 Blood Pressure 118/65 Blood Pressure [Left Arm] 141/60 H 141/66 H Pulse Oximetry 100 100 99 03/30/19 19:20 03/30/19 20:48 03/30/19 21:00 Temperature Pulse Rate 97 H 93 H 106 H Respiratory Rate 16 18 15 Blood Pressure Blood Pressure [Left Arm] 141/66 H 123/72 110/80 Pulse Oximetry 95 97 100 03/30/19 21:54 Temperature Pulse Rate 97 H Respiratory Rate 20 Blood Pressure 125/71 Blood Pressure [Left Arm] Pulse Oximetry 98 Oxygen Delivery Method Room Air Narrative Exam Narrative: GENERAL APPEARANCE: well developed, unkempt, difficult to arouse and will not remain awake. HEAD: Symmetrical faces, atraumatic negative Chvostek sign. EYES: No ptosis, pupils equal, round, reactive to light and accommodation, sclera non-icteric, extraocular movement intact without nystagmus. EARS: normal external structures, no ear pain NOSE: Grimace on percussion of sinuses, no rhinorrhea or epistaxis ORAL CAVITY: mucosa dry without lesions or exudate, tongue in midline. THROAT: normal, no erythema, no exudate, posterior pharynx normal, uvula midline. NECK/THYROID: neck supple, no jugular venous distention, no carotid bruit, no thyromegaly, trachea midline. LYMPH NODES: no cervical or supraclavicular lymphadenopathy. SKIN: Pale, warm, dry, Scattered bruises scab left knee, abrasions bilateral knees contusion left leg HEART: regular rate and rhythm, S1-S2 without murmur, no rubs or gallops, 3 second capillary refill, trace edema LUNGS: Breath sounds with central coarseness clearing cough, no crackles or wheezing, no cough present CHEST: Symmetrical movement, no accessory muscle use, chest wall pain to AP and lateral compression. ABDOMEN: Round, dull to percussion, pain and guarding with palpation all quadrants, no peritoneal signs on heel strike, no organomegaly, no flank tenderness, active bowel tones. EXTREMITIES: moves all extremities, strength is 4/5 and symmetrical, no deformities. NEUROLOGIC: Obtain ended, requires repeated stimulation to remain awake, oriented to person and place, states the year as 1998 or 1992, inconsistently follows commands, slight tremulousness of hands. PSYCH: Withdrawn, minimally interactive, no spontaneous interaction Objective Labs Result Diagrams: 03/30/19 17:45 03/30/19 17:45 Labs: Laboratory Results - last 24 hr 03/30/19 03/30/19 03/30/19 17:45 17:45 17:45 WBC 12.5 H RBC 3.30 L Hgb 11.5 L Hct 34.7 L MCV 105.3 H MCH 34.9 H MCHC 33.1 RDW 15.9 H Plt Count 200 Neut % (Auto) 80.3 H Lymph % (Auto) 9.9 L [place] % (Auto) 9.1 Eos % (Auto) 0.2 L Baso % (Auto) 0.5 Neut # (Auto) 71205 H Lymph # (Auto) 1200 [place] # (Auto) 1100 H Eos # (Auto) 0 Baso # (Auto) 100 PT INR APTT Sodium 137 Potassium 3.8 Chloride 103 Carbon Dioxide 27 BUN 13 Creatinine 0.70 Estimated GFR > 60.0 BUN/Creatinine Ratio 18.6 Glucose 58 L Lactate Calcium 14.3 H* Total Bilirubin 2.6 H AST 61 H ALT 26 Alkaline Phosphatase 176 H Ammonia Total Creatine Kinase Troponin I < 0.012 B-Natriuretic Peptide 102 H Total Protein 6.5 Albumin 2.9 L Globulin 3.6 Albumin/Globulin Ratio 0.8 L Lipase 213 Procalcitonin 0.86 H Urine Color Urine Appearance Urine pH Ur Specific [place] Urine Protein Urine Glucose (UA) Urine Ketones Urine Occult Blood Urine Nitrate Urine Bilirubin Urine Ictotest Urine Urobilinogen Ur Leukocyte Esterase Urine RBC Urine WBC Amorphous Sediment Urine Bacteria Urine Mucus Ur Culture Indicated? U Morph 300 ng/mL cutoff Ur Oxycodone Screen Urine Methadone Screen Acetaminophen < 10 L Ur Barbiturates Screen U Tricyclic Antidepress Ur Phencyclidine Scrn Ur Amphetamines Screen U Methamphetamines Scrn Ur MDMA Scrn (Ecstasy) U Benzodiazepines Scrn Urine Cocaine Screen U Marijuana (THC) Screen Ethyl Alcohol < 10 Blood Type Antibody Screen 03/30/19 03/30/19 03/30/19 17:45 17:45 18:33 WBC RBC Hgb Hct MCV MCH MCHC RDW Plt Count Neut % (Auto) Lymph % (Auto) [place] % (Auto) Eos % (Auto) Baso % (Auto) Neut # (Auto) Lymph # (Auto) [place] # (Auto) Eos # (Auto) Baso # (Auto) PT 15.6 H INR 1.3 APTT 36 Sodium Potassium Chloride Carbon Dioxide BUN Creatinine Estimated GFR BUN/Creatinine Ratio Glucose Lactate 1.6 Calcium Total Bilirubin AST ALT Alkaline Phosphatase Ammonia Total Creatine Kinase 58 Troponin I B-Natriuretic Peptide Total Protein Albumin Globulin Albumin/Globulin Ratio Lipase Procalcitonin Urine Color Urine Appearance Urine pH Ur Specific [place] Urine Protein Urine Glucose (UA) Urine Ketones Urine Occult Blood Urine Nitrate Urine Bilirubin Urine Ictotest Urine Urobilinogen Ur Leukocyte Esterase Urine RBC Urine WBC Amorphous Sediment Urine Bacteria Urine Mucus Ur Culture Indicated? U Morph 300 ng/mL cutoff Ur Oxycodone Screen Urine Methadone Screen Acetaminophen Ur Barbiturates Screen U Tricyclic Antidepress Ur Phencyclidine Scrn Ur Amphetamines Screen U Methamphetamines Scrn Ur MDMA Scrn (Ecstasy) U Benzodiazepines Scrn Urine Cocaine Screen U Marijuana (THC) Screen Ethyl Alcohol Blood Type Antibody Screen 03/30/19 03/30/19 03/30/19 18:33 18:33 19:15 WBC RBC Hgb Hct MCV MCH MCHC RDW Plt Count Neut % (Auto) Lymph % (Auto) [place] % (Auto) Eos % (Auto) Baso % (Auto) Neut # (Auto) Lymph # (Auto) [place] # (Auto) Eos # (Auto) Baso # (Auto) PT INR APTT Sodium Potassium Chloride Carbon Dioxide BUN Creatinine Estimated GFR BUN/Creatinine Ratio Glucose Lactate Calcium Total Bilirubin AST ALT Alkaline Phosphatase Ammonia 13.0 Total Creatine Kinase Troponin I B-Natriuretic Peptide Total Protein Albumin Globulin Albumin/Globulin Ratio Lipase Procalcitonin Urine Color Urine Appearance Urine pH Ur Specific [place] Urine Protein Urine Glucose (UA) Urine Ketones Urine Occult Blood Urine Nitrate Urine Bilirubin Urine Ictotest Urine Urobilinogen Ur Leukocyte Esterase Urine RBC Urine WBC Amorphous Sediment Urine Bacteria Urine Mucus Ur Culture Indicated? U Morph 300 ng/mL cutoff Negative Ur Oxycodone Screen Negative Urine Methadone Screen Negative Acetaminophen Ur Barbiturates Screen Negative U Tricyclic Antidepress Negative Ur Phencyclidine Scrn Negative Ur Amphetamines Screen Negative U Methamphetamines Scrn Negative Ur MDMA Scrn (Ecstasy) Negative U Benzodiazepines Scrn Negative Urine Cocaine Screen Negative U Marijuana (THC) Screen Negative Ethyl Alcohol Blood Type O Positive Antibody Screen Negative 03/30/19 19:15 WBC RBC Hgb Hct MCV MCH MCHC RDW Plt Count Neut % (Auto) Lymph % (Auto) [place] % (Auto) Eos % (Auto) Baso % (Auto) Neut # (Auto) Lymph # (Auto) [place] # (Auto) Eos # (Auto) Baso # (Auto) PT INR APTT Sodium Potassium Chloride Carbon Dioxide BUN Creatinine Estimated GFR BUN/Creatinine Ratio Glucose Lactate Calcium Total Bilirubin AST ALT Alkaline Phosphatase Ammonia Total Creatine Kinase Troponin I B-Natriuretic Peptide Total Protein Albumin Globulin Albumin/Globulin Ratio Lipase Procalcitonin Urine Color Yellow Urine Appearance Sl cloudy Urine pH 5.5 Ur Specific [place] 1.020 Urine Protein Trace H Urine Glucose (UA) Negative Urine Ketones Trace H Urine Occult Blood Negative Urine Nitrate Negative Urine Bilirubin 1+ H Urine Ictotest Positive H Urine Urobilinogen 4.0 H Ur Leukocyte Esterase Negative Urine RBC None seen Urine WBC None seen Amorphous Sediment 1+ Urine Bacteria None seen Urine Mucus 1+ H Ur Culture Indicated? Cult not indicated U Morph 300 ng/mL cutoff Ur Oxycodone Screen Urine Methadone Screen Acetaminophen Ur Barbiturates Screen U Tricyclic Antidepress Ur Phencyclidine Scrn Ur Amphetamines Screen U Methamphetamines Scrn Ur MDMA Scrn (Ecstasy) U Benzodiazepines Scrn Urine Cocaine Screen U Marijuana (THC) Screen Ethyl Alcohol Blood Type Antibody Screen Assessment & Plan Assessment & Plan narrative: This is a 64-year-old male patient who was encountered by police when family requested a welfare check. The patient was found down home for an unknown duration of time. Patient is brought to the ER with altered mental status with weakness and confusion. History of alcoholism with alcohol level of 0. 1. Acute metabolic encephalopathy, present on admission, active. -patient is found down for unknown reason at home for unknown duration. -hypoglycemia identified on admission and treated without change in mental status. Patient remains obtained and will not remain awake without constant stimulation. -head CT is negative for intracranial pathology -differential diagnosis: -alcohol withdrawal, but alcohol level is less than 10. -infection, elevated white count at 12.5, procalcitonin elevated at 0.86, chest CT identifies possible early pneumonia right lower lobe -hypercalcemia at 14.3, lipase remains within normal range at 213. -liver cirrhosis, ammonia level is 13. -specific interventions outlined below. 2. Alcohol abuse, alcohol withdrawal, present on admission, active -alcohol withdrawal, but alcohol level is less than 10. No evidence of recurrence of pancreatitis with a lipase of 213. -CIWA protocol, lorazepam per [facility] protocol. -banana bag with magnesium 2 g, thiamin 100 mg, folate 1 mg and multivitamin to run at 125 cc/hour then, thiamin 100 mg and folate 1 mg p.o. daily. -seizure precautions. 3. Hypercalcemia, acute, present on admission, active. -calcium on admission is 14.3, Chvostek's sign and Trousseau's sign not elicited, EKG is sinus rhythm with low-voltage without ST or T-wave changes, no ectopy QTC is 357 milliseconds. -patient received 1 L IV fluid in the emergency department, ordered 2nd bolus normal saline 1 L over 1 hour -D5 NS at 150 cc an hour with normal saline banana bag at 125 cc/hour. -zoledronic acid 4 mg x1 -calcitonin 250 mg subcu x1 -will obtain TSH, PTH and vitamin-D levels. -will obtain CA 19-9 and CEA related cystic hypodensity in the tail of the pancreas. -will monitor chemistries closely 4. Hypoglycemia, present on admission, active -admission lab work identifies hypoglycemia with a blood sugar of 58. -patient received 2 doses of dextrose, 25 mg and 12.5 mg while in the ER. Patient is to attend to eat taking 2 bites out of a sandwich. -IV D5 NS 150 cc/hour, recheck blood sugar every 2 hours until stable. 5. Leukocytosis, acute, present on admission, active -elevated white count at 12.5 more likely to be effective post to reactive with an elevated procalcitonin at 0.86. Lactic acid is 1.6. -CT exam identifies possibility of right lower lobe pneumonia, breath sounds are clear without coarseness or crackles oxygen saturation 98% on room air. No indication of urinary tract infection. -ceftriaxone 2 g IV daily. -will follow CBC and procalcitonin 6. Elevated liver functions related to cirrhosis, present on admission, active. -history of chronic alcoholism, medical Record supports 3-6 drinks daily. -total bilirubin at 2.6, AST of 61, ALT of 26, alkaline phosphatase of 176 with an albumin of 2.9 and ammonia of 13. -CT scan: Cirrhotic margination of the liver, ascites, suspect cirrhosis and early portal hypertension. -MELD score is 13, 3 month mortality is 6.0% 7. Macrocytic anemia, present on admission, active -related to malabsorption secondary to alcoholism. Patient will receiving folate daily, will obtain B12 level. -patient with admitting H&H of 11.5 and 34.7 in the setting of dehydration. Will expect this 2. Decreased significantly with hydration to reduce calcium levels. -will follow CBC. The patient is admitted to critical care due to persistent hypoglycemia and hypercalcemia and risk for complications, arrhythmias and adverse events. Patient is admitted as an inpatient with expected length of stay to be greater than 2 midnights. Critical care time: 45 minutes is spent in [id number] on assessment and reassessments, Scores GCS Willy coma scale eye opening: To sound Willy coma scale verbal response: Confused Willy coma scale motor response: Obey commands Willy coma scale total score: 13
[2019-03-30 22:42] LABS: Magnesium 1.9 mg/dL (1.6-2.3)
[2019-03-30] MEDS: CALCITONIN,SALMON 400 UNITS/2 ML MDV 250 UNITS SUBCUT (22:50)
[2019-03-30] MEDS: ZOLEDRONIC ACID 4 MG in SODIUM CHLORIDE 0.9% 100 ML 315 ML IV (23:08)
[2019-03-30] MEDS: DEXTROSE 5%-0.9% NS 1,000 ML 150 ML IV (23:09)
[2019-03-30] MEDS: LORazepam 2 MG/ML INJ IV (23:10)
[2019-03-30] MEDS: CEFTRIAXONE 2 GM/50 ML FROZ.PIGGY IV (23:46)
[2019-03-31] VITALS (9 sets, daily range): BP systolic 98–165; BP diastolic 55–84; PULSE 91–103; RESP 16–30; TEMP 36.3–37.6; O2SAT 95–98
[2019-03-31] MEDS: MAGNESIUM SULFATE 2 GM, FOLIC ACID 1 MG, THIAMINE 100 MG, MULTIVITAMIN 10 ML in SODIUM ... IV (00:21)
[2019-03-31 00:56] LABS: Blood Urea Nitrogen 12 mg/dL (9-20); Carbon Dioxide 25 mmol/L (22-32); Chloride 108 mmol/L (98-107); Estimated Glomerular Filt Rate > 60.0 mL/min (>60); Glucose 112 mg/dL (80-110); HEMOLYSIS 81 (0-50); Potassium 3.8 mmol/L (3.4-5.1); Sodium 136 mmol/L (137-145)
[2019-03-31 01:00] LABS: Calcium 12.9 mg/dL (8.4-10.2)
[2019-03-31 01:33] LABS: Carcinoembryonic Antigen 2.9 ng/mL (0.1-3.0)
--- NOTE | 2019-03-31 06:10 | PC.NURSE ---
Asked at least every 2 hours if he knows where he is, and what year it is. At 0600 finally stated he did not know where he was, but could/would not answer what year it is. Also asked where he hurts as he is periodically grimacing, will look at you but not answer.
[2019-03-31] MEDS: SODIUM CHLORIDE 0.9% 1,000 ML 150 ML IV (06:56)
[2019-03-31 06:59] LABS: Add Manual Diff / Slide Review NO; Basophils Absolute Auto 100 /uL (0-100); Basophils Percent Auto 0.7 % (0-2); Eosinophils Absolute Auto 0 /uL (0-450); Eosinophils Percent Auto 0.6 % (2-4); Hematocrit 31.7 % (41-53); Hemoglobin 10.6 g/dL (13.5-17.5); Lymphocytes Absolute Auto 900 /uL (1100-4500); Lymphocytes Percent Auto 11.5 % (25-40); Mean Corpuscular HGB Conc 33.3 % (30-36); Mean Corpuscular Hemoglobin 35.1 PG (26-34); Mean Corpuscular Volume 105.4 fL (80-100); Monocytes Absolute Auto 800 /uL (0-900); Monocytes Percent Auto 9.5 % (3-14); Neutrophils Absolute Auto 6200 /uL (1500-7000); Neutrophils Percent Auto 77.7 % (50-75); Platelet Count 113 X10^3/uL (150-400); Red Blood Cell Count 3.01 X10^6/uL (4.5-5.9)
[2019-03-31 07:12] LABS: Alanine Aminotransferase 32 IU/L (21-72); Albumin 2.3 g/dL (3.5-5.0); Albumin Globulin Ratio 0.7 (1.0-2.8); Alkaline Phosphatase 154 U/L (38-126); Aspartate Aminotransferase 49 IU/L (17-59); Bilirubin Total 1.8 mg/dL (0.2-1.3); Blood Urea Nitrogen 9 mg/dL (9-20); Calcium 12.3 mg/dL (8.4-10.2); Carbon Dioxide 24 mmol/L (22-32); Chloride 110 mmol/L (98-107); Estimated Glomerular Filt Rate > 60.0 mL/min (>60); Globulin 3.4 g/dL (1.7-4.1); Glucose 107 mg/dL (80-110); HEMOLYSIS 17 (0-50); Magnesium 2.3 mg/dL (1.6-2.3); Potassium 3.1 mmol/L (3.4-5.1); Sodium 140 mmol/L (137-145); Total Protein 5.7 g/dL (6.3-8.2)
[2019-03-31 08:00] LABS: Vitamin B12 > 1000 pg/mL (239-931)
[2019-03-31] MEDS: LORazepam 2 MG/ML INJ IV (08:01)
[2019-03-31] MEDS: PANTOPRAZOLE 40 MG VIAL IV (08:01)
[2019-03-31] MEDS: ENOXAPARIN 40 MG/0.4 ML SYRINGE SUBCUT (08:17)
[2019-03-31 08:44] LABS: TSH w/ Reflex to FT4 1.44 uIU/mL (0.47-4.68)
[2019-03-31] MEDS: POTASSIUM CHLORIDE 60 MEQ in SODIUM CHLORIDE 0.9% 500 ML 88.333 ML IV (09:46)
[2019-03-31] MEDS: THIAMINE 100 MG in DEXTROSE 5 % IN WATER 50 ML 204 ML IV (09:47)
[2019-03-31] MEDS: CALCITONIN,SALMON 400 UNITS/2 ML MDV 300 UNITS SUBCUT ×2 (09:47→23:38)
--- NOTE | 2019-03-31 10:35 | PC.NURSE ---
Addendum entered by Dorothy Cabrera R.N. 03/31/19 14:19: friend jung alba came to visit and we have clearance to share any info with him per pts sister, ELBA . PT MINIMALLY RESPONSIVE TO STAFF EXCEPT TO [facility] AND RESIST CARE Original Note: spoke at length with pts sister, Elba, who is in [place] at present- she states pt has debilitating nicotine/etoh abuse and uses these things to attempt to control his chronic back pain- pt remains somnulent with occasional rouses with physical assessment and bathing of patient NS continues at 150cc/h and kcl rider/thiamine- unable to take anything po at this time- mila patent
--- NOTE | 2019-03-31 12:54 | DIET.PN ---
Dietary Progress Note Pt referred to nutrition for cirrhosis and hypercalcemia, RD attempted visit. Pt medicated, somnolent, and unable to take anything PO at this time, will try again Sunday am.
--- NOTE | 2019-03-31 13:13 | P.PN_ITS ---
Subjective Subjective Date Patient Seen: 03/31/19 Interval history: Edson Stone is a 64-year-old male a past medical history significant for chronic alcohol abuse, alcoholic pancreatitis, nicotine dependence and chronic back pain who presented to the ED via EMS after being found down and minimally responsive during a welfare check. The patient is lying in bed comfortably. The patient is minimally responsive and arouses to verbal stimuli but then quickly falls back asleep. He has mild tremulousness. He smells of alcohol. His last CIWA score was 8. He is voiding via Tolentino catheter and is incontinent but eliminating without difficulty. Exam Vital Signs (past 8 hours): - 03/31/19 08:00 03/31/19 10:43 03/31/19 12:00 Temperature 98.3 F 99.6 F Pulse Rate 91 H 98 H 99 H Respiratory Rate 18 30 H 16 Blood Pressure 152/55 H 99/68 109/70 Pulse Oximetry 96 97 95 Oxygen Delivery Method Room Air Oxygen Flow Rate 0 Narrative Exam Narrative: General: Older gentleman lying in bed, minimally responsive, tremulous, smells of alcohol, in no acute distress HEENT: Normocephalic, atraumatic. External ears without defect. Pupils equal, round, and reactive to light. Anicteric sclerae, moist conjunctivae Cardiovascular: Regular rhythm, mildly tachycardic, without murmurs, rubs, or gallops appreciated Pulmonary: Clear to auscultation bilaterally without crackles, wheezes, or rhonchi. Normal respiratory effort with no use of accessory muscles. Abdomen: Soft, bowel sounds present, nontender, nondistended. No hepatosplenomegaly or masses appreciated. Extremities: No clubbing, cyanosis, or edema. scattered bruises on extremities Skin: Normal temperature, turgor, and texture; no rash, ulcers, or subcutaneous nodules appreciated. Objective Labs Result Diagrams: 04/05/19 12:16 04/05/19 12:16 Labs: Laboratory Results - last 24 hr 03/30/19 03/30/19 03/30/19 17:45 17:45 17:45 WBC 12.5 H RBC 3.30 L Hgb 11.5 L Hct 34.7 L MCV 105.3 H MCH 34.9 H MCHC 33.1 RDW 15.9 H Plt Count 200 Neut % (Auto) 80.3 H Lymph % (Auto) 9.9 L Esmeralda % (Auto) 9.1 Eos % (Auto) 0.2 L Baso % (Auto) 0.5 Neut # (Auto) 22289 H Lymph # (Auto) 1200 Esmeralda # (Auto) 1100 H Eos # (Auto) 0 Baso # (Auto) 100 PT INR APTT Sodium 137 Potassium 3.8 Chloride 103 Carbon Dioxide 27 BUN 13 Creatinine 0.70 Estimated GFR > 60.0 BUN/Creatinine Ratio 18.6 Glucose 58 L Lactate Calcium 14.3 H* Magnesium Total Bilirubin 2.6 H AST 61 H ALT 26 Alkaline Phosphatase 176 H Ammonia Total Creatine Kinase Troponin I < 0.012 B-Natriuretic Peptide 102 H Total Protein 6.5 Albumin 2.9 L Globulin 3.6 Albumin/Globulin Ratio 0.8 L Lipase 213 Carcinoembryonic Ag Vitamin B12 Procalcitonin 0.86 H TSH Urine Color Urine Appearance Urine pH Ur Specific [place] Urine Protein Urine Glucose (UA) Urine Ketones Urine Occult Blood Urine Nitrate Urine Bilirubin Urine Ictotest Urine Urobilinogen Ur Leukocyte Esterase Urine RBC Urine WBC Amorphous Sediment Urine Bacteria Urine Mucus Ur Culture Indicated? Nasal Screen MRSA (PCR) U Morph 300 ng/mL cutoff Ur Oxycodone Screen Urine Methadone Screen Acetaminophen < 10 L Ur Barbiturates Screen U Tricyclic Antidepress Ur Phencyclidine Scrn Ur Amphetamines Screen U Methamphetamines Scrn Ur MDMA Scrn (Ecstasy) U Benzodiazepines Scrn Urine Cocaine Screen U Marijuana (THC) Screen Ethyl Alcohol < 10 Blood Type Antibody Screen 03/30/19 03/30/19 03/30/19 17:45 17:45 18:33 WBC RBC Hgb Hct MCV MCH MCHC RDW Plt Count Neut % (Auto) Lymph % (Auto) Esmeralda % (Auto) Eos % (Auto) Baso % (Auto) Neut # (Auto) Lymph # (Auto) Esmeralda # (Auto) Eos # (Auto) Baso # (Auto) PT 15.6 H INR 1.3 APTT 36 Sodium Potassium Chloride Carbon Dioxide BUN Creatinine Estimated GFR BUN/Creatinine Ratio Glucose Lactate 1.6 Calcium Magnesium Total Bilirubin AST ALT Alkaline Phosphatase Ammonia Total Creatine Kinase 58 Troponin I B-Natriuretic Peptide Total Protein Albumin Globulin Albumin/Globulin Ratio Lipase Carcinoembryonic Ag Vitamin B12 Procalcitonin TSH Urine Color Urine Appearance Urine pH Ur Specific [place] Urine Protein Urine Glucose (UA) Urine Ketones Urine Occult Blood Urine Nitrate Urine Bilirubin Urine Ictotest Urine Urobilinogen Ur Leukocyte Esterase Urine RBC Urine WBC Amorphous Sediment Urine Bacteria Urine Mucus Ur Culture Indicated? Nasal Screen MRSA (PCR) U Morph 300 ng/mL cutoff Ur Oxycodone Screen Urine Methadone Screen Acetaminophen Ur Barbiturates Screen U Tricyclic Antidepress Ur Phencyclidine Scrn Ur Amphetamines Screen U Methamphetamines Scrn Ur MDMA Scrn (Ecstasy) U Benzodiazepines Scrn Urine Cocaine Screen U Marijuana (THC) Screen Ethyl Alcohol Blood Type Antibody Screen 03/30/19 03/30/19 03/30/19 18:33 18:33 18:33 WBC RBC Hgb Hct MCV MCH MCHC RDW Plt Count Neut % (Auto) Lymph % (Auto) Esmeralda % (Auto) Eos % (Auto) Baso % (Auto) Neut # (Auto) Lymph # (Auto) Esmeralda # (Auto) Eos # (Auto) Baso # (Auto) PT INR APTT Sodium Potassium Chloride Carbon Dioxide BUN Creatinine Estimated GFR BUN/Creatinine Ratio Glucose Lactate Calcium Magnesium Total Bilirubin AST ALT Alkaline Phosphatase Ammonia 13.0 Total Creatine Kinase Troponin I B-Natriuretic Peptide Total Protein Albumin Globulin Albumin/Globulin Ratio Lipase Carcinoembryonic Ag 2.9 Vitamin B12 Procalcitonin TSH Urine Color Urine Appearance Urine pH Ur Specific [place] Urine Protein Urine Glucose (UA) Urine Ketones Urine Occult Blood Urine Nitrate Urine Bilirubin Urine Ictotest Urine Urobilinogen Ur Leukocyte Esterase Urine RBC Urine WBC Amorphous Sediment Urine Bacteria Urine Mucus Ur Culture Indicated? Nasal Screen MRSA (PCR) U Morph 300 ng/mL cutoff Ur Oxycodone Screen Urine Methadone Screen Acetaminophen Ur Barbiturates Screen U Tricyclic Antidepress Ur Phencyclidine Scrn Ur Amphetamines Screen U Methamphetamines Scrn Ur MDMA Scrn (Ecstasy) U Benzodiazepines Scrn Urine Cocaine Screen U Marijuana (THC) Screen Ethyl Alcohol Blood Type O Positive Antibody Screen Negative 03/30/19 03/30/19 03/30/19 18:33 19:15 19:15 WBC RBC Hgb Hct MCV MCH MCHC RDW Plt Count Neut % (Auto) Lymph % (Auto) Esmeralda % (Auto) Eos % (Auto) Baso % (Auto) Neut # (Auto) Lymph # (Auto) Esmeralda # (Auto) Eos # (Auto) Baso # (Auto) PT INR APTT Sodium Potassium Chloride Carbon Dioxide BUN Creatinine Estimated GFR BUN/Creatinine Ratio Glucose Lactate Calcium Magnesium 1.9 Total Bilirubin AST ALT Alkaline Phosphatase Ammonia Total Creatine Kinase Troponin I B-Natriuretic Peptide Total Protein Albumin Globulin Albumin/Globulin Ratio Lipase Carcinoembryonic Ag Vitamin B12 Procalcitonin TSH Urine Color Yellow Urine Appearance Sl cloudy Urine pH 5.5 Ur Specific [place] 1.020 Urine Protein Trace H Urine Glucose (UA) Negative Urine Ketones Trace H Urine Occult Blood Negative Urine Nitrate Negative Urine Bilirubin 1+ H Urine Ictotest Positive H Urine Urobilinogen 4.0 H Ur Leukocyte Esterase Negative Urine RBC None seen Urine WBC None seen Amorphous Sediment 1+ Urine Bacteria None seen Urine Mucus 1+ H Ur Culture Indicated? Cult not indicated Nasal Screen MRSA (PCR) U Morph 300 ng/mL cutoff Negative Ur Oxycodone Screen Negative Urine Methadone Screen Negative Acetaminophen Ur Barbiturates Screen Negative U Tricyclic Antidepress Negative Ur Phencyclidine Scrn Negative Ur Amphetamines Screen Negative U Methamphetamines Scrn Negative Ur MDMA Scrn (Ecstasy) Negative U Benzodiazepines Scrn Negative Urine Cocaine Screen Negative U Marijuana (THC) Screen Negative Ethyl Alcohol Blood Type Antibody Screen 03/30/19 03/31/19 03/31/19 21:53 00:35 06:42 WBC 8.0 RBC 3.01 L Hgb 10.6 L Hct 31.7 L MCV 105.4 H MCH 35.1 H MCHC 33.3 RDW 16.0 H Plt Count 113 L Neut % (Auto) 77.7 H Lymph % (Auto) 11.5 L Esmeralda % (Auto) 9.5 Eos % (Auto) 0.6 L Baso % (Auto) 0.7 Neut # (Auto) 6200 Lymph # (Auto) 900 L Esmeralda # (Auto) 800 Eos # (Auto) 0 Baso # (Auto) 100 PT INR APTT Sodium 136 L Potassium 3.8 Chloride 108 H Carbon Dioxide 25 BUN 12 Creatinine 0.60 L Estimated GFR > 60.0 BUN/Creatinine Ratio 20.0 Glucose 112 H Lactate Calcium 12.9 H* Magnesium Total Bilirubin AST ALT Alkaline Phosphatase Ammonia Total Creatine Kinase Troponin I B-Natriuretic Peptide Total Protein Albumin Globulin Albumin/Globulin Ratio Lipase Carcinoembryonic Ag Vitamin B12 Procalcitonin TSH Urine Color Urine Appearance Urine pH Ur Specific [place] Urine Protein Urine Glucose (UA) Urine Ketones Urine Occult Blood Urine Nitrate Urine Bilirubin Urine Ictotest Urine Urobilinogen Ur Leukocyte Esterase Urine RBC Urine WBC Amorphous Sediment Urine Bacteria Urine Mucus Ur Culture Indicated? Nasal Screen MRSA (PCR) Negative for mrsa U Morph 300 ng/mL cutoff Ur Oxycodone Screen Urine Methadone Screen Acetaminophen Ur Barbiturates Screen U Tricyclic Antidepress Ur Phencyclidine Scrn Ur Amphetamines Screen U Methamphetamines Scrn Ur MDMA Scrn (Ecstasy) U Benzodiazepines Scrn Urine Cocaine Screen U Marijuana (THC) Screen Ethyl Alcohol Blood Type Antibody Screen 03/31/19 03/31/19 03/31/19 06:42 06:42 06:42 WBC RBC Hgb Hct MCV MCH MCHC RDW Plt Count Neut % (Auto) Lymph % (Auto) Esmeralda % (Auto) Eos % (Auto) Baso % (Auto) Neut # (Auto) Lymph # (Auto) Esmeralda # (Auto) Eos # (Auto) Baso # (Auto) PT INR APTT Sodium 140 Potassium 3.1 L Chloride 110 H Carbon Dioxide 24 BUN 9 Creatinine 0.60 L Estimated GFR > 60.0 BUN/Creatinine Ratio 15.0 Glucose 107 Lactate Calcium 12.3 H Magnesium 2.3 Total Bilirubin 1.8 H AST 49 ALT 32 Alkaline Phosphatase 154 H Ammonia Total Creatine Kinase Troponin I B-Natriuretic Peptide Total Protein 5.7 L Albumin 2.3 L Globulin 3.4 Albumin/Globulin Ratio 0.7 L Lipase Carcinoembryonic Ag Vitamin B12 > 1000 H Procalcitonin TSH 1.44 Urine Color Urine Appearance Urine pH Ur Specific [place] Urine Protein Urine Glucose (UA) Urine Ketones Urine Occult Blood Urine Nitrate Urine Bilirubin Urine Ictotest Urine Urobilinogen Ur Leukocyte Esterase Urine RBC Urine WBC Amorphous Sediment Urine Bacteria Urine Mucus Ur Culture Indicated? Nasal Screen MRSA (PCR) U Morph 300 ng/mL cutoff Ur Oxycodone Screen Urine Methadone Screen Acetaminophen Ur Barbiturates Screen U Tricyclic Antidepress Ur Phencyclidine Scrn Ur Amphetamines Screen U Methamphetamines Scrn Ur MDMA Scrn (Ecstasy) U Benzodiazepines Scrn Urine Cocaine Screen U Marijuana (THC) Screen Ethyl Alcohol Blood Type Antibody Screen 03/31/19 06:42 WBC RBC Hgb Hct MCV MCH MCHC RDW Plt Count Neut % (Auto) Lymph % (Auto) Esmeralda % (Auto) Eos % (Auto) Baso % (Auto) Neut # (Auto) Lymph # (Auto) Esmeralda # (Auto) Eos # (Auto) Baso # (Auto) PT INR APTT Sodium Potassium Chloride Carbon Dioxide BUN Creatinine Estimated GFR BUN/Creatinine Ratio Glucose Lactate Calcium Magnesium Total Bilirubin AST ALT Alkaline Phosphatase Ammonia Total Creatine Kinase Troponin I B-Natriuretic Peptide Total Protein Albumin Globulin Albumin/Globulin Ratio Lipase Carcinoembryonic Ag Vitamin B12 Procalcitonin 0.50 TSH Urine Color Urine Appearance Urine pH Ur Specific [place] Urine Protein Urine Glucose (UA) Urine Ketones Urine Occult Blood Urine Nitrate Urine Bilirubin Urine Ictotest Urine Urobilinogen Ur Leukocyte Esterase Urine RBC Urine WBC Amorphous Sediment Urine Bacteria Urine Mucus Ur Culture Indicated? Nasal Screen MRSA (PCR) U Morph 300 ng/mL cutoff Ur Oxycodone Screen Urine Methadone Screen Acetaminophen Ur Barbiturates Screen U Tricyclic Antidepress Ur Phencyclidine Scrn Ur Amphetamines Screen U Methamphetamines Scrn Ur MDMA Scrn (Ecstasy) U Benzodiazepines Scrn Urine Cocaine Screen U Marijuana (THC) Screen Ethyl Alcohol Blood Type Antibody Screen Assessment & Plan Assessment & Plan narrative: Edson Stone is a 64-year-old male a past medical history significant for chronic alcohol abuse, alcoholic pancreatitis, nicotine dependence and chronic back pain who presented to the ED via EMS after being found down and minimally responsive during a welfare check. 1. Acute metabolic encephalopathy, present on admission, active. -patient is found down for unknown reason at home for unknown duration. -hypoglycemia identified on admission and treated without change in mental status. Patient remains obtained and will not remain awake without constant stimulation. -head CT is negative for intracranial pathology -differential diagnosis: -alcohol withdrawal, but alcohol level is less than 10. -infection, elevated white count at 12.5, procalcitonin elevated at 0.86, chest CT identifies possible early pneumonia right lower lobe -hypercalcemia at 14.3, lipase remains within normal range at 213. -liver cirrhosis, ammonia level is 13. -specific interventions outlined below. 2. Alcohol abuse, alcohol withdrawal, present on admission, active -alcohol withdrawal, but alcohol level is less than 10. No evidence of recurrence of pancreatitis with a lipase of 213. -CIWA protocol, lorazepam per CIWA protocol. -banana bag with magnesium 2 g, thiamin 100 mg, folate 1 mg and multivitamin to run at 125 cc/hour then, thiamin 100 mg and folate 1 mg p.o. daily. -seizure precautions. 3. Hypercalcemia, acute, present on admission, active. -calcium on admission is 14.3, Chvostek's sign and Trousseau's sign not elicited, EKG is sinus rhythm with low-voltage without ST or T-wave changes, no ectopy QTC is 357 milliseconds. -patient received 1 L IV fluid in the emergency department, ordered 2nd bolus normal saline 1 L over 1 hour -D5 NS at 150 cc an hour with normal saline banana bag at 125 cc/hour. -zoledronic acid 4 mg x1 -calcitonin 250 mg subcu x1 -will obtain TSH, PTH and vitamin-D levels. -will obtain CA 19-9 and CEA related cystic hypodensity in the tail of the pancreas. -will monitor chemistries closely 4. Hypoglycemia, present on admission, active -admission lab work identifies hypoglycemia with a blood sugar of 58. -patient received 2 doses of dextrose, 25 mg and 12.5 mg while in the ER. Patient is to attend to eat taking 2 bites out of a sandwich. -IV D5 NS 150 cc/hour, recheck blood sugar every 2 hours until stable. 5. Leukocytosis, acute, present on admission, active -elevated white count at 12.5 more likely to be effective post to reactive with an elevated procalcitonin at 0.86. Lactic acid is 1.6. -CT exam identifies possibility of right lower lobe pneumonia, breath sounds are clear without coarseness or crackles oxygen saturation 98% on room air. No indication of urinary tract infection. -ceftriaxone 2 g IV daily. -will follow CBC and procalcitonin 6. Elevated liver functions related to cirrhosis, present on admission, active. -history of chronic alcoholism, medical Record supports 3-6 drinks daily. -total bilirubin at 2.6, AST of 61, ALT of 26, alkaline phosphatase of 176 with an albumin of 2.9 and ammonia of 13. -CT scan: Cirrhotic margination of the liver, ascites, suspect cirrhosis and e juan carlos portal hypertension. -MELD score is 13, 3 month mortality is 6.0% 7. Macrocytic anemia, present on admission, active -related to malabsorption secondary to alcoholism. Patient will receiving fo late daily, will obtain B12 level. -patient with admitting H&H of 11.5 and 34.7 in the setting of dehydration. Will expect this 2. Decreased significantly with hydration to reduce calcium levels. -will follow CBC. Disposition: Patient remains inpatient. Quality VTE Deep Vein Thrombosis/Pulmonary Embolism Present on Admission: No
[2019-03-31 16:23] LABS: Hep C Virus Ab w/Reflex Quant NEGATIVE s/c (NEGATIVE)
--- NOTE | 2019-03-31 17:37 | PC.NURSE ---
Addendum entered by Sol Keyes R.N. 03/31/19 23:06: 2230 - Pt sister called. Reports hx of smoking 2-3 packs per day. Reports that he has left AMA r/t inability to smoke during admission. Unsure of hx of DT's. She is unable to confirm amount pt drinks, stating that he is on a limited income and does not drive. Information relayed to Hospitalist. Also reviewed respiratory status, fluid status and mental status. Orders obtained. Addendum entered by Sol Keyes R.N. 03/31/19 20:10: 2000 - Pt with anterior airway congestion. Difficulty getting pt to cough. Posterior LS rhonci and wheezes. Sats 96% on RA. Tachypneic. Reviewed LS and IVF rate with Hospitalist Cedric. Orders obtained. Continued to encourage pt to cough. Pt states stop it. Bed alarm on. Addendum entered by Sol Keyes R.N. 03/31/19 19:20: 1910 - Pt restless, Assist to reposition. Pt opened eyes to name, squeezed them tight shut with attempted pupil assessment. Offered oral care. Pt unwilling to open mouth fully for care. Repositioned to left side lying. Tremors noted to UE. HR tachycardic in the low 100's. Dependent edema. Anterior airway congestion. Pt with one weak cough upon request. Unable to repeat. Bed alarm on. Original Note: 1700 - During care, Pt attempted to sit up. States I got to get out of here. Otherwise no verbal response. Pt keeping eyes closed, grimace, moan and wincing with repositioning. Does not follow directions, pulls at wires within reach. UE tremors. Bed alarm on.
[2019-03-31] MEDS: SODIUM CHLORIDE 0.9% 1,000 ML 100 ML IV (19:59)
[2019-03-31] MEDS: CEFTRIAXONE 2 GM/50 ML FROZ.PIGGY IV (22:35)
[2019-03-31] MEDS: FUROSEMIDE 40 MG/4 ML VIAL IV (23:37)
[2019-04-01] VITALS: BP 149/56; PULSE 106; RESP 30; TEMP 36.7; O2SAT 95
[2019-04-01 04:00] VITALS: BP 116/78; PULSE 108; RESP 44; TEMP 37; O2SAT 95
[2019-04-01 04:55] LABS: Hematocrit 35.9 % (41-53); Hemoglobin 11.9 g/dL (13.5-17.5); Mean Corpuscular HGB Conc 33.1 % (30-36); Mean Corpuscular Hemoglobin 34.8 PG (26-34); Platelet Count 126 X10^3/uL (150-400); Red Blood Cell Count 3.42 X10^6/uL (4.5-5.9); Red Cell Distribution Width 15.8 % (11.6-14.8)
[2019-04-01 04:58] LABS: Add Manual Diff / Slide Review YES
[2019-04-01 05:00] LABS: Alanine Aminotransferase 35 IU/L (21-72); Albumin 2.6 g/dL (3.5-5.0); Albumin Globulin Ratio 0.7 (1.0-2.8); Alkaline Phosphatase 178 U/L (38-126); Aspartate Aminotransferase 60 IU/L (17-59); Bilirubin Total 1.9 mg/dL (0.2-1.3); Blood Urea Nitrogen 6 mg/dL (9-20); Calcium 10.7 mg/dL (8.4-10.2); Carbon Dioxide 26 mmol/L (22-32); Chloride 112 mmol/L (98-107); Estimated Glomerular Filt Rate > 60.0 mL/min (>60); Globulin 3.6 g/dL (1.7-4.1); Glucose 108 mg/dL (80-110); HEMOLYSIS 16 (0-50); Potassium 3.3 mmol/L (3.4-5.1); Sodium 141 mmol/L (137-145); Total Protein 6.2 g/dL (6.3-8.2)
[2019-04-01] MEDS: POTASSIUM CHLORIDE 40 MEQ in SODIUM CHLORIDE 0.9% 500 ML 130 ML IV (05:32)
[2019-04-01 06:54] LABS: Neutrophils Absolute Manual 8190 /uL (3000-5900); Total Cells Counted 100
[2019-04-01 06:55] LABS: Macrocytosis 1+
[2019-04-01 07:31] VITALS: BP 104/56; PULSE 107; RESP 20; TEMP 36.6; O2SAT 95
[2019-04-01] MEDS: THIAMINE 100 MG in DEXTROSE 5 % IN WATER 50 ML 204 ML IV (09:35)
[2019-04-01] MEDS: ENOXAPARIN 40 MG/0.4 ML SYRINGE SUBCUT (09:35)
[2019-04-01] MEDS: NICOTINE 21 MG PATCH TOP (09:35)
[2019-04-01] MEDS: SODIUM CHLORIDE 0.9% FLUSH 10 ML IV (09:36)
[2019-04-01] MEDS: PANTOPRAZOLE 40 MG VIAL IV (09:36)
[2019-04-01] MEDS: SODIUM CHLORIDE 0.9% 1,000 ML 100 ML IV (09:37)
[2019-04-01 11:00] VITALS: BP 106/69; PULSE 104; RESP 18; TEMP 36.6; O2SAT 96
--- NOTE | 2019-04-01 11:27 | DI.RAD.S_ITS ---
PROCEDURE: XR CHEST 1V INDICATIONS: r/o pneumonia TECHNIQUE: One view of the chest was acquired. COMPARISON: [facility], JOSE, XR CHEST 1V, 03/30/2019, 18:40. [facility], JOSE, CHEST 1 VIEW, 05/15/2016, 14:16. FINDINGS: Surgical changes and devices: Pain control spinal electrode plate noted over the low thoracic spine. Lungs and pleura: Lungs are clear. No pleural effusions or pneumothorax. Mediastinum: Mediastinal contours appear normal. Heart size is normal. Bones and chest wall: No suspicious bony lesions. Overlying soft tissues appear unremarkable. IMPRESSION: Normal chest, stable position of a spinal pain control electrode plate superimposed on the junction of the middle and lower thirds of the thoracic spine. Dictated by: Puma Hernadez M.D. on 04/01/2019 at 13:01 Approved by: Puma Hernadez M.D. on 04/01/2019 at 13:02
[2019-04-01 12:13] LABS: B Type Natriuretic Peptide < 100 (<100); Lactate (Lactic Acid) 1.3 mmol/L (0.7-2.1); Lipase 220 U/L (23-300)
[2019-04-01] MEDS: CALCITONIN,SALMON 400 UNITS/2 ML MDV 300 UNITS SUBCUT (13:21)
[2019-04-01] MEDS: MORPHINE 2 MG/ML INJ IV (14:01)
[2019-04-01 16:13] VITALS: BP 125/79; PULSE 99; RESP 24; TEMP 36.7; O2SAT 95
--- NOTE | 2019-04-01 17:00 | CM.DANOTE ---
DCP/Brief Assessment: Reviewed chart. Patient is a 64yr old male admitted to [facility] with altered mental status. No PCP listed. Primary payor is 1)Medicare 2)? This [employer] attempted to see patient on 03-31 and 04-01 spoke with nursing staff whom indicate that patient continues to have altered mental status and unable to interview. Patient with acute metabolic encephalopathy present on admission. Per notes, patient with long h/o alcoholism. Per notes, patient's sister/Elba called police on 03-30 for welfare check on this patient. Apparently, sister concerned because she could not reach him? Notes indicate patient active with alcohol and nicotine dependence. Patient currently full code. P: Patient needs CM assessment when medically appropriate to do so. Requested ICU staff call ext# [phone] if sister/family arrives. ARUNA Gonzalez
--- NOTE | 2019-04-01 17:29 | PC.NURSE ---
Addendum entered by Sol Keyes R.N. 04/01/19 20:55: 1900 - Pt with infiltrated IV to LUE. Edema and bruising. IV d/c'd to LUE. Right AC IV leaking. IV d/c'd. IV restart to Upper left arm. MD aware of access difficulties. Pt intermittently restless in bed. Resistive to care. Continues with minimal verbal responses. Original Note: 1730 - Pt grimacing with care. Minimal verbal responses. Opens eyes briefly, not sustained. Unable to follow directions. RA sats 93%. Seizure pads in place. Bed alarm on.
--- NOTE | 2019-04-01 17:30 | DI.RAD.S_ITS ---
PROCEDURE: XR KUB INDICATIONS: r/o free air/ abdominal pain TECHNIQUE: One view of the abdomen acquired. COMPARISON: None. FINDINGS: Surgical changes and devices: Dorsal column stimulator. Bowel: Bowel gas pattern is normal. Soft tissues: No suspicious abdominal calcifications. Visualized solid organ contours appear normal in size. Bones: No suspicious bony lesions. IMPRESSION: 1. Normal bowel gas pattern. 2. A single supine view the abdomen does not exclude free air. Consider upright abdominal film or noncontrast CT of the abdomen and pelvis. Dictated by: Huang Mcclain M.D. on 04/01/2019 at 18:14 Approved by: Huang Mcclain M.D. on 04/01/2019 at 18:16
--- NOTE | 2019-04-01 17:38 | PM.PN.1 ---
Subjective Subjective Date Patient Seen: 04/01/19 Interval history: Patient is a 64-year-old male who was admitted to the hospital for acute metabolic encephalopathy, alcohol abuse, hypercalcemia. Patient has been essentially unresponsive since admission. His last dose of Ativan was day before yesterday. He does arouse minimally. When he does so he complains of abdominal pain. The patient is not awake enough to state where his abdominal pain is. He had a large bowel movement at the time of admission. He has had smearing of stool since then. He has been minimally responsive for the entire day. Exam Vital Signs (past 8 hours): - 04/01/19 11:00 04/01/19 16:13 Temperature 98 F 98.1 F Pulse Rate 104 H 99 H Respiratory Rate 18 24 Blood Pressure 106/69 125/79 Pulse Oximetry 96 95 Oxygen Delivery Method Room Air Oxygen Flow Rate 0 Narrative Exam Narrative: Ill-appearing male minimally responsive Lungs: Decreased breath sounds but clear to auscultation Cardiac exam: Tachycardic regular rate rhythm normal S1-S2 Abdomen: Soft, mildly distended, mildly tender to palpation, no board-like rigidity, no rebound tenderness, no palpable mass Extremities: No edema Neuro exam: The patient is minimally responsive. He does arouse with stimulation. However he quickly falls back to sleep. He is mumbling with incoherent communication. Objective Labs Result Diagrams: 04/01/19 04:35 04/01/19 04:35 Labs: Laboratory Results - last 24 hr 04/01/19 04/01/19 04/01/19 04:35 04:35 11:40 WBC 9.0 RBC 3.42 L Hgb 11.9 L Hct 35.9 L MCV 105.0 H MCH 34.8 H MCHC 33.1 RDW 15.8 H Plt Count 126 L Neut % (Auto) Not Reportable Lymph % (Auto) Not Reportable [place] % (Auto) Not Reportable Eos % (Auto) Not Reportable Baso % (Auto) Not Reportable Lymph # (Auto) Not Reportable [place] # (Auto) Not Reportable Baso # (Auto) Not Reportable Total Counted 100 Seg Neutrophils % 88.0 H Band Neutrophils % 3.0 Lymphocytes % (Manual) 3.0 L Monocytes % (Manual) 5.0 Basophils % (Manual) 1.0 Neutrophils # (Manual) 8190 H RBC Morphology See below Macrocytosis 1+ H Sodium 141 Potassium 3.3 L Chloride 112 H Carbon Dioxide 26 BUN 6 L Creatinine 0.60 L Estimated GFR > 60.0 BUN/Creatinine Ratio 10.0 Glucose 108 Lactate Calcium 10.7 H Total Bilirubin 1.9 H AST 60 H ALT 35 Alkaline Phosphatase 178 H B-Natriuretic Peptide Total Protein 6.2 L Albumin 2.6 L Globulin 3.6 Albumin/Globulin Ratio 0.7 L Lipase 220 04/01/19 04/01/19 11:40 11:40 WBC RBC Hgb Hct MCV MCH MCHC RDW Plt Count Neut % (Auto) Lymph % (Auto) [place] % (Auto) Eos % (Auto) Baso % (Auto) Lymph # (Auto) [place] # (Auto) Baso # (Auto) Total Counted Seg Neutrophils % Band Neutrophils % Lymphocytes % (Manual) Monocytes % (Manual) Basophils % (Manual) Neutrophils # (Manual) RBC Morphology Macrocytosis Sodium Potassium Chloride Carbon Dioxide BUN Creatinine Estimated GFR BUN/Creatinine Ratio Glucose Lactate 1.3 Calcium Total Bilirubin AST ALT Alkaline Phosphatase B-Natriuretic Peptide < 100 Total Protein Albumin Globulin Albumin/Globulin Ratio Lipase Assessment & Plan Assessment & Plan narrative: Impression 1. Acute metabolic encephalopathy, etiology unclear, suspect alcohol abuse in addition to prolonged effect Ativan given his liver disease. However given the prolonged stay S increasingly concerning for other etiologies. Will repeat head CT this evening. Consider lumbar puncture if no improvement. Patient will continue on IV hydration. Will obtain an ammonia level. Repeat laboratory findings. 2. Alcohol abuse, with encephalopathy, no further Ativan would like to see the patient more alert and awake. 3. Hypercalcemia etiology unclear, patient received Zometa IV hydration and Lasix with improvement. Will continue to follow number elevated liver function studies, likely related to alcoholic liver disease, will continue to monitor closely 5. Macrocytic anemia, likely related to alcohol use 6. Benign prostatic hypertrophy, chronic Patient's overall prognosis is poor. Will repeat KUB this evening, consider repeat head CT, consider MRI of the brain, lumbar puncture if no improvement all sedating medications will be discontinued. Patient will continue with IV hydration. Will follow his labs closely. Quality VTE Deep Vein Thrombosis/Pulmonary Embolism Present on Admission: No
[2019-04-01 18:10] LABS: Add Manual Diff / Slide Review NO; Basophils Absolute Auto 100 /uL (0-100); Basophils Percent Auto 0.7 % (0-2); Eosinophils Absolute Auto 100 /uL (0-450); Hemoglobin 11.1 g/dL (13.5-17.5); Lymphocytes Absolute Auto 1000 /uL (1100-4500); Lymphocytes Percent Auto 11.4 % (25-40); Mean Corpuscular HGB Conc 32.6 % (30-36); Mean Corpuscular Hemoglobin 34.9 PG (26-34); Mean Corpuscular Volume 107.1 fL (80-100); Monocytes Absolute Auto 1000 /uL (0-900); Monocytes Percent Auto 11.6 % (3-14); Neutrophils Absolute Auto 6700 /uL (1500-7000); Neutrophils Percent Auto 75.3 % (50-75); Platelet Count 121 X10^3/uL (150-400); Red Blood Cell Count 3.18 X10^6/uL (4.5-5.9); Red Cell Distribution Width 16.3 % (11.6-14.8); White Blood Cell Count 8.9 X10^3/uL (4.5-11.0)
[2019-04-01] MEDS: DEXTROSE 5%-0.45NS W/KCL 20MEQ 1,000 ML 125 MEQ IV (18:13)
[2019-04-01 18:24] LABS: Alanine Aminotransferase 37 IU/L (21-72); Albumin 2.4 g/dL (3.5-5.0); Albumin Globulin Ratio 0.7 (1.0-2.8); Alkaline Phosphatase 159 U/L (38-126); Aspartate Aminotransferase 63 IU/L (17-59); Bilirubin Total 1.8 mg/dL (0.2-1.3); Blood Urea Nitrogen 6 mg/dL (9-20); Carbon Dioxide 26 mmol/L (22-32); Chloride 113 mmol/L (98-107); Estimated Glomerular Filt Rate > 60.0 mL/min (>60); Globulin 3.5 g/dL (1.7-4.1); Glucose 105 mg/dL (80-110); HEMOLYSIS < 15 (0-50); Potassium 3.6 mmol/L (3.4-5.1); Sodium 143 mmol/L (137-145); Total Protein 5.9 g/dL (6.3-8.2)
[2019-04-01 18:25] LABS: Lactate (Lactic Acid) 1.1 mmol/L (0.7-2.1)
[2019-04-01 18:41] LABS: Procalcitonin 0.28 ng/mL (<0.5)
--- NOTE | 2019-04-01 18:41 | DI.RAD.S_ITS ---
PROCEDURE: XR ABDOMEN MIN 2V INDICATIONS: r/o free air TECHNIQUE: 2 views of the abdomen were acquired. COMPARISON: [facility], , ABDOMEN 2 VIEW, 05/16/2016, 15:37. FINDINGS: Surgical changes and devices: None. Bowel: 2 views are provided. One is labeled semierect, and the other is labeled right decubitus. These are not be ideal for looking for free air. No gross evidence of free air. Normal bowel gas pattern Soft tissues: No masses; visualized solid organ contours appear normal in size. No suspicious abdominal calcifications. Bones: No suspicious bony abnormalities. IMPRESSION: No gross evidence of free air. To exclude free air, a upright film or a left lateral decubitus film or a noncontrast CT of the abdomen and pelvis is suggested. Comment: Findings were discussed with OCHOA Rodriguez at the time of study dictation. Dictated by: Huang Mcclain M.D. on 04/01/2019 at 19:57 Approved by: Huang Mcclain M.D. on 04/01/2019 at 20:03
[2019-04-01 20:17] VITALS: BP 104/49; PULSE 97; RESP 26; TEMP 36.4
[2019-04-01] MEDS: CEFTRIAXONE 2 GM/50 ML FROZ.PIGGY IV (22:33)
[2019-04-02] VITALS: BP 118/82; PULSE 96; RESP 24; TEMP 36.7; O2SAT 94
[2019-04-02] MEDS: DEXTROSE 5%-0.45NS W/KCL 20MEQ 1,000 ML 125 MEQ IV ×2 (02:37→10:10)
[2019-04-02 04:38] VITALS: BP 119/71; PULSE 91; RESP 13; TEMP 36; O2SAT 95
--- NOTE | 2019-04-02 06:46 | PC.NURSE ---
Patient has been restless most of night, moaning and grimacing when touched, mostly non-verbal, not answering when questioned about pain, abdomen appears to be most tender when touched. SR/ST, SpO2 93-97% on RA, breath sounds slightly coarse, has dry intermittent cough. Afebrile. Incontinent soft brown stool.
[2019-04-02 07:39] VITALS: BP 142/72; PULSE 97; RESP 22; TEMP 36.6; O2SAT 97
[2019-04-02] MEDS: THIAMINE 100 MG in DEXTROSE 5 % IN WATER 50 ML 204 ML IV (08:56)
[2019-04-02] MEDS: PANTOPRAZOLE 40 MG VIAL IV (09:01)
[2019-04-02] MEDS: ENOXAPARIN 40 MG/0.4 ML SYRINGE SUBCUT (09:02)
[2019-04-02] MEDS: NICOTINE 21 MG PATCH TOP (09:02)
[2019-04-02 09:40] LABS: Add Manual Diff / Slide Review NO; Basophils Absolute Auto 100 /uL (0-100); Eosinophils Absolute Auto 100 /uL (0-450); Eosinophils Percent Auto 1.3 % (2-4); Hemoglobin 10.9 g/dL (13.5-17.5); Lymphocytes Absolute Auto 1100 /uL (1100-4500); Lymphocytes Percent Auto 13.3 % (25-40); Mean Corpuscular HGB Conc 32.9 % (30-36); Mean Corpuscular Hemoglobin 34.9 PG (26-34); Mean Corpuscular Volume 106.2 fL (80-100); Monocytes Absolute Auto 800 /uL (0-900); Monocytes Percent Auto 9.7 % (3-14); Neutrophils Absolute Auto 5900 /uL (1500-7000); Neutrophils Percent Auto 74.7 % (50-75); Platelet Count 118 X10^3/uL (150-400); Red Blood Cell Count 3.11 X10^6/uL (4.5-5.9); Red Cell Distribution Width 15.6 % (11.6-14.8); White Blood Cell Count 7.9 X10^3/uL (4.5-11.0)
[2019-04-02 09:49] LABS: INR 1.6 (0.9-1.3); Prothrombin Time 19.1 SECONDS (10.1-12.7)
[2019-04-02 09:55] LABS: Alanine Aminotransferase 34 IU/L (21-72); Albumin 2.3 g/dL (3.5-5.0); Albumin Globulin Ratio 0.7 (1.0-2.8); Alkaline Phosphatase 153 U/L (38-126); Aspartate Aminotransferase 47 IU/L (17-59); Bilirubin Total 1.2 mg/dL (0.2-1.3); Blood Urea Nitrogen 4 mg/dL (9-20); Calcium 9.2 mg/dL (8.4-10.2); Carbon Dioxide 25 mmol/L (22-32); Chloride 113 mmol/L (98-107); Estimated Glomerular Filt Rate > 60.0 mL/min (>60); Globulin 3.3 g/dL (1.7-4.1); Glucose 140 mg/dL (80-110); HEMOLYSIS < 15 (0-50); Lipase 178 U/L (23-300); Potassium 3.3 mmol/L (3.4-5.1); Sodium 141 mmol/L (137-145); Total Protein 5.6 g/dL (6.3-8.2)
[2019-04-02 09:56] LABS: Lactate (Lactic Acid) 1.7 mmol/L (0.7-2.1)
[2019-04-02 10:20] LABS: Procalcitonin 0.17 ng/mL (<0.5)
[2019-04-02 11:00] VITALS: BP 126/81; PULSE 93; RESP 18; TEMP 36.8; O2SAT 100; O2SAT 99
--- NOTE | 2019-04-02 14:14 | DI.CT.S_ITS ---
PROCEDURE: CT HEAD/BRAIN WO CON INDICATIONS: CVA, unable to get MRI increased confusion TECHNIQUE: Noncontrast 4.5 mm thick angled axial sections acquired from the foramen magnum to the vertex, with coronal and sagittal reformats. For radiation dose reduction, the following was used: automated exposure control, adjustment of mA and/or kV according to patient size. COMPARISON: [facility], CT, CT HEAD/BRAIN WO CON, 03/30/2019, 17:43. FINDINGS: Image quality: Okay. Motion artifact despite repeat acquisition. CSF spaces: Basal cisterns are patent. No extra-axial fluid collections. Ventricles are normal in size and shape. Brain: No midline shift. No intracranial masses or hemorrhage. Franz-white matter interface is normal. No area of hypodensity in a vascular distribution to acute suggest infarction. Mild periventricular hypodensity suggesting chronic microvascular ischemic change. Distal intracranial ICA and vertebral artery atherosclerotic calcification. Skull and face: Calvarium and visualized facial bones are intact, without suspicious lesions. Sinuses: Visualized sinuses and mastoids are clear. IMPRESSION: Suboptimal exam due to patient motion despite repeat acquisition. No acute intracranial abnormality demonstrated. Dictated by: Kana Garber M.D. on 04/02/2019 at 14:56 Approved by: Kana Garber M.D. on 04/02/2019 at 15:00
--- NOTE | 2019-04-02 14:24 | P.PN_ITS ---
Subjective Subjective Date Patient Seen: 04/02/19 Interval history: The patient is a 64-year-old male with a history of chronic alcohol abuse, alcoholic pancreatitis, nicotine dependence, chronic back pain, who was admitted to the hospital having been found unresponsive at home. The patient was found to be hypoglycemic, hypercalcemic, with acute metabolic encephalopathy. He received 1 dose of Ativan here in the hospital. He has been essentially unresponsive for the past 2-3 days. The patient is more awake today, however, his speech is still garbled, he is not eating very much, and appears to still be confused. He is more alert. He at times complains of abdominal pain and back pain. But he is unable to provide further history. Exam Vital Signs (past 8 hours): - 04/02/19 07:39 04/02/19 11:00 Temperature 98 F 98.3 F Pulse Rate 97 H 93 H Respiratory Rate 22 18 Blood Pressure 142/72 H 126/81 Pulse Oximetry 97 100 Oxygen Delivery Method Room Air Oxygen Flow Rate 0 Narrative Exam Narrative: Lethargic male who is at times arousable HEENT: Normocephalic atraumatic, extraocular muscles difficult to evaluate, neck is supple, no adenopathy Lungs: Decreased breath sounds but clear to auscultation Cardiac exam: Tachycardic regular rate and rhythm normal S1-S2 Abdomen: Soft, mildly tender to palpation no board-like rigidity, no rebound tenderness, no palpable masses, no hepatosplenomegaly noted Extremities: No edema Neuro exam: The patient remains confused, difficult to follow commands, he is more awake than this morning but still not at baseline. Objective Labs Result Diagrams: 04/02/19 09:25 04/02/19 09:25 Labs: Laboratory Results - last 24 hr 04/01/19 04/01/19 04/01/19 18:02 18:02 18:02 WBC 8.9 RBC 3.18 L Hgb 11.1 L Hct 34.0 L MCV 107.1 H MCH 34.9 H MCHC 32.6 RDW 16.3 H Plt Count 121 L Neut % (Auto) 75.3 H Lymph % (Auto) 11.4 L [place] % (Auto) 11.6 Eos % (Auto) 1.0 L Baso % (Auto) 0.7 Neut # (Auto) 6700 Lymph # (Auto) 1000 L [place] # (Auto) 1000 H Eos # (Auto) 100 Baso # (Auto) 100 PT INR Sodium 143 Potassium 3.6 Chloride 113 H Carbon Dioxide 26 BUN 6 L Creatinine 0.60 L Estimated GFR > 60.0 BUN/Creatinine Ratio 10.0 Glucose 105 Lactate Calcium 10.0 Total Bilirubin 1.8 H AST 63 H ALT 37 Alkaline Phosphatase 159 H Ammonia Total Protein 5.9 L Albumin 2.4 L Globulin 3.5 Albumin/Globulin Ratio 0.7 L Lipase Procalcitonin 0.28 04/01/19 04/01/19 04/02/19 18:02 18:02 09:25 WBC RBC Hgb Hct MCV MCH MCHC RDW Plt Count Neut % (Auto) Lymph % (Auto) [place] % (Auto) Eos % (Auto) Baso % (Auto) Neut # (Auto) Lymph # (Auto) [place] # (Auto) Eos # (Auto) Baso # (Auto) PT INR Sodium Potassium Chloride Carbon Dioxide BUN Creatinine Estimated GFR BUN/Creatinine Ratio Glucose Lactate 1.1 Calcium Total Bilirubin AST ALT Alkaline Phosphatase Ammonia 29.0 Total Protein Albumin Globulin Albumin/Globulin Ratio Lipase Procalcitonin 0.17 04/02/19 04/02/19 04/02/19 09:25 09:25 09:25 WBC 7.9 RBC 3.11 L Hgb 10.9 L Hct 33.0 L MCV 106.2 H MCH 34.9 H MCHC 32.9 RDW 15.6 H Plt Count 118 L Neut % (Auto) 74.7 Lymph % (Auto) 13.3 L [place] % (Auto) 9.7 Eos % (Auto) 1.3 L Baso % (Auto) 1.0 Neut # (Auto) 5900 Lymph # (Auto) 1100 [place] # (Auto) 800 Eos # (Auto) 100 Baso # (Auto) 100 PT 19.1 H INR 1.6 H Sodium 141 Potassium 3.3 L Chloride 113 H Carbon Dioxide 25 BUN 4 L Creatinine 0.50 L Estimated GFR > 60.0 BUN/Creatinine Ratio 8.0 Glucose 140 H Lactate Calcium 9.2 Total Bilirubin 1.2 AST 47 ALT 34 Alkaline Phosphatase 153 H Ammonia Total Protein 5.6 L Albumin 2.3 L Globulin 3.3 Albumin/Globulin Ratio 0.7 L Lipase 178 Procalcitonin 04/02/19 04/02/19 09:25 09:25 WBC RBC Hgb Hct MCV MCH MCHC RDW Plt Count Neut % (Auto) Lymph % (Auto) [place] % (Auto) Eos % (Auto) Baso % (Auto) Neut # (Auto) Lymph # (Auto) [place] # (Auto) Eos # (Auto) Baso # (Auto) PT INR Sodium Potassium Chloride Carbon Dioxide BUN Creatinine Estimated GFR BUN/Creatinine Ratio Glucose Lactate 1.7 Calcium Total Bilirubin AST ALT Alkaline Phosphatase Ammonia 61.0 H Total Protein Albumin Globulin Albumin/Globulin Ratio Lipase Procalcitonin Assessment & Plan Assessment & Plan narrative: Acute metabolic encephalopathy, etiology unclear, the patient was found down for an unknown period of time. He was also found to be markedly hypoglycemic. The patient may have anoxic encephalopathy related to poor perfusion poor oxygenation after being hypoglycemic. It was unclear how long he had been in that state. It he has been slow to respond. His initial head CT was negative. Patient has rods in his back and is unable to have an MRI. We will however repeat his head CT at this time looking for an acute stroke or evidence to suggest anoxic encephalopathy. The patient was on antibiotics empirically. There is no evidence of pneumonia or urinary tract infection. Ceftriaxone will be discontinued. 2. Chronic alcohol dependence, no evidence of alcohol withdrawal at this time. Will continue to monitor the patient with a [facility] protocol. However he has not required Ativan over the past 24 hours. Will repeat head CT this evening. Consider lumbar puncture if no improvement. Doubt meningitis, will not pursue lumbar puncture at this time. Patient will continue on IV hydration. Will obtain an ammonia level. Repeat laboratory findings. 3. Mildly elevated ammonia level, doubt etiology of encephalopathy. However if the patient is able to take oral lactulose will start that to see if it makes any improvement. 4. Hypercalcemia etiology unclear, patient received Zometa IV hydration and Lasix with improvement. Repeat calcium normal. Suspect secondary to dehy dration. Hyperparathyroidism workup underway Will continue to follow number elevated liver function studies, likely related to alcoholic liver disease, will continue to monitor closely 5. Macrocytic anemia, likely related to alcohol use 6. Benign prostatic hypertrophy, chronic 7. Hypokalemia, will replace8. Protein calorie malnutrition, suspect severe, hopefully once the patient becomes more weight he will start with oral intake. 8. Probable cirrhosis of the liver, will continue to follow Quality VTE Deep Vein Thrombosis/Pulmonary Embolism Present on Admission: No
[2019-04-02 15:00] VITALS: BP 121/77; PULSE 95; RESP 24; TEMP 36.7
[2019-04-02] MEDS: POTASSIUM CHLORIDE 60 MEQ in SODIUM CHLORIDE 0.9% 500 ML 88.333 ML IV (15:42)
--- NOTE | 2019-04-02 16:37 | CM.DPC ---
DCP Continued: EMR Reviewed: CM attempted to meet with patient at bedside but patient was non-responsive and unable to participate in meeting. DCP department will need to work with patient when appropriate and patient is able. CM met with patients APS LEANNA Haas- [phone] and discussed patient current hospitalizations. Patient was unable to communicate with her at the time of her assessment and asked That CM department call her when he is awake and responsive. Bailey Smith RN.
[2019-04-02 17:01] VITALS: BMI 27.0
--- NOTE | 2019-04-02 17:14 | DIET.PN ---
Dietary Progress Note Assessment: 64y M admitted after being found down and hypoglycemic for unknown amount of time. Last person to see pt visited evening of 03/27/19, found him confused at that time. Pt has been unable to take anything by mouth for 4d, likely no intake for at least 7d as not arousable. Nutrition support via feeding tube to preserve gut indicated. Pt at high risk for refeeding. Concern from nursing that pt may pull NG tube out as has tried removing catheter r/t not being sedated but not arousable. HT: 182.8cm WT: 90.3kg (3% wt loss in 2d, severe) BMI: 27.0 Labs: K+ 3.3 L, ammonia 61 H, Total PRO 5.6 L, Alb 2.3 L, calcium has normalized MNA: 10 Calos: 16 Nutrition Diagnosis: Acute Severe PCM r/t pt unarousable to take anything PO for 3d aeb pt met 0% EERs for 7d, 3% wt loss in 2d (severe), pt found unresponsive 3d ago at home for unknown amount of time c hypoglycemia, etoh withdrawl protocol in place for known dependence. Interventions: Recc EN nutrition support Jevity 1.5 continuous trophic feed of 10mL/h increasing by 10mL/h q4h as tolerated to goal rate of 55mL/h with 350mL free water flushes q4h providing 2,004kcal, 90g Pro, 1,003mL water in formula and 2100mL free water flushes supplying 100% EERs. Please check Mg, K+, Phos labs and monitor BG for 48h after feeds start as pt at high risk for refeeding. Head of bed elevated, check residuals. Diet Order: General EER: 2000kcal, 90g PRO (1g/kg), 2.7L fluids Monitoring/Evaluations: somnolence, POs, nutrition support request
[2019-04-02 17:56] LABS: Cancer (Carbohydrate) Ag 19-9 < 3 U/mL (< 34)
--- NOTE | 2019-04-02 18:19 | PC.NURSE ---
Addendum entered by Sol Keyes R.N. 04/02/19 21:38: 2130 - Pt inc of urine and dark liquid stool. Total care and linen change. Pt attempt to cooperate, however groans, grimaces and guards during care. Barrier cream applied. warm blankets provided. Addendum entered by Sol Keyes R.N. 04/02/19 20:45: 2009 - Pt awake. Set up into high reyes's position. Able to take sips of water. Able to cough when asked to do so. Able to take po lactulose without difficulty. Reoriented to place and situation. HS care provided although pt again refused to oral care. Pt denies urge to void. Monitor. Addendum entered by Sol Keyes R.N. 04/02/19 19:49: 5 - Reviewed pt with hospitalist. Discussed LOC, conversation with family. Reviewed labs, IV access and potential for PO intake. Addendum entered by Sol Keyes R.N. 04/02/19 19:24: 1920 - Pt awake, restless in bed. Sister Elba phoned to check pt status. Transferred call to pt room. Assist with phone. Pt able to state repeatedly, I am okay. and I love you. Elba says, I have never heard him sound like that, except when he is drunk. Following phone conversation, pt turned to right side and returned to sleep. Elba reported that she will return to [place] on Sunday and will be into see pt on Sunday. Original Note: 1744 - Pt restless in bed. Attempting to sit up. Reoriented to place and situation. Pt with no clear verbal response. Unable to follow directions. Pt turned self to left side lying and became more restful. Bed alarm on. Monitor.
[2019-04-02 20:20] VITALS: BP 98/65; PULSE 92; RESP 18; TEMP 36.3
[2019-04-02] MEDS: LACTULOSE 20 GM/30 ML SOLUTION PO (20:39)
[2019-04-03 00:37] VITALS: BP 162/61; PULSE 96; RESP 20; TEMP 36.1; O2SAT 98
[2019-04-03] MEDS: DEXTROSE 5%-0.45NS W/KCL 20MEQ 1,000 ML 125 MEQ IV ×2 (01:07→10:20)
[2019-04-03 04:29] VITALS: BP 119/79; PULSE 95; RESP 20; TEMP 36.4; O2SAT 99
[2019-04-03 04:50] LABS: Add Manual Diff / Slide Review NO; Basophils Absolute Auto 100 /uL (0-100); Basophils Percent Auto 0.9 % (0-2); Eosinophils Absolute Auto 100 /uL (0-450); Eosinophils Percent Auto 1.7 % (2-4); Hematocrit 33.6 % (41-53); Hemoglobin 10.9 g/dL (13.5-17.5); Lymphocytes Absolute Auto 1200 /uL (1100-4500); Lymphocytes Percent Auto 15.7 % (25-40); Mean Corpuscular HGB Conc 32.5 % (30-36); Mean Corpuscular Hemoglobin 34.7 PG (26-34); Mean Corpuscular Volume 106.9 fL (80-100); Monocytes Absolute Auto 800 /uL (0-900); Monocytes Percent Auto 10.6 % (3-14); Neutrophils Absolute Auto 5400 /uL (1500-7000); Neutrophils Percent Auto 71.1 % (50-75); Platelet Count 102 X10^3/uL (150-400); Red Blood Cell Count 3.15 X10^6/uL (4.5-5.9); Red Cell Distribution Width 16.2 % (11.6-14.8); White Blood Cell Count 7.6 X10^3/uL (4.5-11.0)
[2019-04-03 05:07] LABS: BUN Creatinine Ratio 7.5 (6-22); Blood Urea Nitrogen 3 mg/dL (9-20); Calcium 8.7 mg/dL (8.4-10.2); Carbon Dioxide 22 mmol/L (22-32); Chloride 115 mmol/L (98-107); Estimated Glomerular Filt Rate > 60.0 mL/min (>60); Glucose 123 mg/dL (80-110); HEMOLYSIS 26 (0-50); Potassium 3.9 mmol/L (3.4-5.1); Sodium 138 mmol/L (137-145)
--- NOTE | 2019-04-03 06:51 | PC.NURSE ---
Patient is becoming more alert and oriented to person and place, follows directions, remains intermittently restless with grimacing and moaning, mostly during changing brief. He has been incontinent of bowel and bladder throughout night, loose brown stools, sipping water without difficulty. Has cough, expiratory wheezes, SpO2 >96% on RA, will encourage I.S. when more open to instructions on use.
[2019-04-03 07:49] VITALS: BP 140/92; PULSE 93; RESP 20; TEMP 36.9; O2SAT 100
[2019-04-03] MEDS: FOLIC ACID 1 MG TABLET PO (08:40)
[2019-04-03] MEDS: THIAMINE 100 MG in DEXTROSE 5 % IN WATER 50 ML 204 ML IV (08:40)
[2019-04-03] MEDS: LACTULOSE 20 GM/30 ML SOLUTION PO ×2 (08:40→22:27)
[2019-04-03] MEDS: PANTOPRAZOLE 40 MG VIAL IV (08:40)
[2019-04-03] MEDS: NICOTINE 21 MG PATCH TOP (08:41)
[2019-04-03] MEDS: SODIUM CHLORIDE 0.9% FLUSH 10 ML IV ×2 (08:41→10:43)
[2019-04-03] MEDS: ENOXAPARIN 40 MG/0.4 ML SYRINGE SUBCUT (10:40)
[2019-04-03 11:00] VITALS: BP 113/69; PULSE 94; RESP 18; TEMP 36.8; O2SAT 99
--- NOTE | 2019-04-03 11:20 | PM.PN.1 ---
Subjective Subjective Date Patient Seen: 04/03/19 Interval history: The patient is a 64-year-old male who was brought in after his sister sent police to his home for welfare check. The patient was found unresponsive. He was unable to provide history. Upon arrival the patient was found to be hypoglycemic with a blood sugar 58. He has known alcohol dependence and there was concern regarding alcohol withdrawal syndrome. The patient was given 1 dose of Ativan. He remained markedly unresponsive for 3 days patient had a head CT x2 both of which were negative. He was found to be hypercalcemic. He received Zometa x1 with improvement of his calcium. Today the patient is awake and alert. He was able to eat breakfast. He is unable to provide history about what happened prior to admission. He has no shortness of breath or pain. He is awake appropriate and responsive Exam Vital Signs (past 8 hours): - 04/03/19 04:29 04/03/19 07:49 Temperature 97.5 F L 98.4 F Pulse Rate 95 H 93 H Respiratory Rate 20 20 Blood Pressure 119/79 140/92 H Pulse Oximetry 99 100 Oxygen Delivery Method Room Air Oxygen Flow Rate 0 Narrative Exam Narrative: Pleasant male alert responsive and answering questions appropriately. Lungs: Decreased breath sounds with scattered rhonchi at the bases bilaterally Cardiac exam: Regular rate and rhythm normal S1-S2 Abdomen: Soft nontender nondistended without appreciable hepatosplenomegaly, no board-like rigidity, no palpable masses noted Extremities: Trace edema Psychiatric exam patient is awake and alert, he answers questions appropriately, there is no hallucinations. Objective Labs Result Diagrams: 04/03/19 04:35 04/03/19 04:35 Labs: Laboratory Results - last 24 hr 03/30/19 04/03/19 04/03/19 18:33 04:35 04:35 WBC 7.6 RBC 3.15 L Hgb 10.9 L Hct 33.6 L MCV 106.9 H MCH 34.7 H MCHC 32.5 RDW 16.2 H Plt Count 102 L Neut % (Auto) 71.1 Lymph % (Auto) 15.7 L [place] % (Auto) 10.6 Eos % (Auto) 1.7 L Baso % (Auto) 0.9 Neut # (Auto) 5400 Lymph # (Auto) 1200 [place] # (Auto) 800 Eos # (Auto) 100 Baso # (Auto) 100 Sodium 138 Potassium 3.9 Chloride 115 H Carbon Dioxide 22 BUN 3 L Creatinine 0.40 L Estimated GFR > 60.0 BUN/Creatinine Ratio 7.5 Glucose 123 H Calcium 8.7 CA 19-9 Antigen < 3 Assessment & Plan Assessment & Plan narrative: Impression 1. Acute metabolic encephalopathy, present on admission improved. Etiology unclear. The patient was found to be hypoglycemic, is no evidence to suggest stroke. His ammonia level was mildly elevated yesterday at 61. He received lactulose with some improvement. The patient is awake and alert today. He is appropriate and able to answer questions but does not have memory for the event. Other etiologies include possible alcohol withdrawal seizure with a prolonged postictal state, anoxic encephalopathy which seems unlikely, encephalopathy related to prolonged hypoglycemia. In any event the patient is awake and responsive today. His diet has been advanced physical therapy and occupational therapy will be obtained. IV fluids will be discontinued. The patient will continue on lactulose 20 mg b.i.d.. 2. Hypercalcemia, etiology unclear. Serum parathyroid hormone still pending. This is a send out lab which takes 5-7 days. Results should be available on Sunday. The patient did receive 1 dose of Zometa, IV fluids, and Lasix. His calcium is normal at 8.7 today. Will obtain SPEP, UPEP, a 24 hour urine calcium, chest x-ray to rule out pulmonary pathology. 3. Chronic alcohol dependence, no evidence of withdrawal at this time 4. Macrocytic anemia, chronic likely related to ongoing alcohol use 5. Hypokalemia, resolved 6. Benign prostatic hypertrophy, chronic 7. Elevated liver function tests, likely related to ongoing alcohol dependence, CT of the abdomen suggestive of probable cirrhosis of the liver. Quality VTE Deep Vein Thrombosis/Pulmonary Embolism Present on Admission: No
--- NOTE | 2019-04-03 11:31 | DI.CT.S_ITS ---
PROCEDURE: CT CHEST WO CON INDICATIONS: smoker, hypercalcemia TECHNIQUE: Noncontrast 5 mm thick sections acquired from the pulmonary apices to the posterior costophrenic angles. 1 mm lung window, 5 mm thick coronal and sagittal and 7 mm axial MIP reformats were then acquired. For radiation dose reduction, the following was used: automated exposure control, adjustment of mA and/or kV according to patient size. COMPARISON: [facility], CT, CT ABDOMEN PELVIS W CON, 03/30/2019, 20:00. [facility], CR, XR CHEST 1V, 04/01/2019, 11:51. FINDINGS: Image quality: Good. Repeat imaging of the lung bases secondary to patient motion artifact. Persistent, but lessened patient motion artifact on repeat images. Lungs and pleura: Patchy bilateral pneumonia, right middle lobe and lingula. Nodular pleural-based opacity, anterior right middle lobe measuring 1.9 x 0.6 cm may represent focal atelectasis versus scarring. Mild to moderate centrilobular emphysema. No pleural effusions or pneumothorax. Central and peripheral airways are patent and normal in caliber. Mediastinum: Heart size is normal. No pericardial effusion. No mediastinal adenopathy by size criteria. Thoracic aorta and central pulmonary arteries are normal in size. Esophagus is normal in caliber. No hiatal hernia. Bones and chest wall: No suspicious bony lesions. No vertebral body compression fractures. No axillary or supraclavicular adenopathy by size criteria. Thyroid gland is unremarkable. Abdomen: Cirrhosis, ascites, findings of pancreatitis which are better seen on recent previous contrast CT. Dorsal column stimulator. IMPRESSION: 1. Patient motion artifact somewhat degrades quality of images at lung bases. 2. Mild to moderate centrilobular emphysema. 3. Subtle patchy pneumonia in the right middle lobe and lingula. 4. No pulmonary findings identified which are suspicious for malignancy. 5. Cirrhosis, ascites, pancreatitis Dictated by: Huang Mcclain M.D. on 04/03/2019 at 12:20 Approved by: Huang Mcclain M.D. on 04/03/2019 at 12:29
--- NOTE | 2019-04-03 14:15 | OT.IP.EVAL ---
Current Diagnoses Metabolic encephalopathy (03/30/19) Past Medical History (Last Reviewed 03/30/19 @ 22:39 by OCHOA Rodriguez) Alcohol abuse (Acute) Back pain (Inactive) Pancreatitis (Inactive) Surgical History (Last Reviewed 03/30/19 @ 22:39 by OCHOA Rodriguez) Surgical history unknown (Acute) Occupational Therapy Inpatient Evaluation/Re-Eval M1 PT/OT-IP Prior Functional Status Start: 04/03/19 13:59 Freq: NEEDED Status: Active Protocol: Document 04/03/19 13:59 CGR (Rec: 04/03/19 14:15 CGR [id number]) Medical Review Prior Functional Status Medical History Reviewed Yes Communication Pt was able to communicate effectively. Mobility and Gait Pt was IND Activities of Daily Living and IADL's Pt was IND Social History Household Members none Living Arrangements House Number of Floors (Floors) One Floor Number of Stairs To Enter/Railing? 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 No hx found in chart. M2 OT-IP Current Condition Start: 04/03/19 13:59 Freq: Status: Active Protocol: Document 04/03/19 13:59 CGR (Rec: 04/03/19 14:15 CGR [id number]) Occupational Therapy Current Condition Current Condition Evaluation Date 04/03/19 Treatment Diagnosis Metabolic encephalopathy Diagnosis Onset Date 03/30/19 M3 OT- IP Subjective and Pain Start: 04/03/19 13:59 Freq: Status: Active Protocol: Document 04/03/19 13:59 CGR (Rec: 04/03/19 14:15 CGR [id number]) OT- Subjective Occupational Therapy Visit Type Type Initial Evaluation Visit Start Time 13:12 Visit Stop Time 13:33 Total Visit Minutes 21 OT Pain Assessment Pain When Pain Assessed At Rest Pain Present Pain Present Denied Pain M4 OT- IP ADL's Start: 04/03/19 13:59 Freq: Status: Active Protocol: Document 04/03/19 13:59 CGR (Rec: 04/03/19 14:15 CGR [id number]) OT [id number] Comments OT Self-Feeding Comments Pt able to hold cup and drink out of spoon with SBA once cup given to pt. OT ADL-Grooming General Evaluation Grooming Ability Moderate Assistance Comments OT Grooming Comments Pt washed face with SBA and brushed hair with max a. OT ADL-Oral Care Comments Oral Care Comments Pt declined OT ADL-Dressing General Eval Upper Body Dressing Ability Total Assistance Lower Body Dressing Ability Total Assistance OT ADL-Toileting Comments OT Toileting Comments Not performed OT ADL-Bathing Comments OT Bathing Comments Not performed M5 OT- IP IADL's Start: 04/03/19 13:59 Freq: Status: Active Protocol: Document 04/03/19 13:59 CGR (Rec: 04/03/19 14:15 CGR [id number]) OT-Instrumental Activities of Daily Living Deficits IADL Deficits Identified Deficits Home Safety Awareness Awareness of Need for Assistance at Home Decreased Awareness Ability to Problem Solve Emergency Unable to Problem Solve Situations M6 OT- IP Functional Cognition Start: 04/03/19 13:59 Freq: Status: Active Protocol: Document 04/03/19 13:59 CGR (Rec: 04/03/19 14:15 CGR [id number]) Cognitive Factors Limiting Selfcare Function Cognitive Ability Level of Alertness Confusional State,Drowsy Patient Orientation Name,Place Attention Span Ability Unable to Focus,Unable to Sustain Attention Cognitive Comments Cognitive Assessment Comments Pt with slow responses and responses are inconsistent. Information provided by pt does appear correct given repeat questions and situation . OT- Vision and Hearing OT- Hearing Assessment OT- Hearing Assessment WFL OT- Vision Assessment Visual Acuity WFL Visual Attentiveness Impaired Occular Pursuits WFL Visual Convergence Impaired Visual Mock WFL Vision Assessment Comments Pt is drowsy and was able to follow some commands for testing. M7 OT- IP Mobility and Balance Start: 04/03/19 13:59 Freq: Status: Active Protocol: Document 04/03/19 13:59 CGR (Rec: 04/03/19 14:15 CGR [id number]) OT-Transfer Assessment Comments Mobility Comments Attempted to perform mobility, pt initially agreeable to getting out of bed but once covers removed for mobility pt declined. Attempted to convince pt of OOB activity multiple times in session but pt declined. M8 OT- IP Objective Assessments Start: 04/03/19 13:59 Freq: Status: Active Protocol: Document 04/03/19 13:59 CGR (Rec: 04/03/19 14:15 CGR [id number]) OT Gross Range of Motion Upper Extremity Range of Motion Assessment Bilaterally Impaired ROM Impairments R shld 0-110, L shld 0-90 OT Strength Upper Extremity Strength Assessment Bilaterally Impaired Comments Strength Comments B hands 3/5, B arms 4-/5, B shld 3-/5 OT- Coordination Assessment Comments Coordination Comments Pt unable to follow commands to perform. OT Sensation Assessment Comments Summary Comments Pt states typical sensations. Edema Edema Present Edema Comments moderate swelling noted to BUE on the proximal arm. M9 OT- IP Assessment and Plan Start: 04/03/19 13:59 Freq: Status: Active Protocol: Document 04/03/19 13:59 CGR (Rec: 04/03/19 14:15 CGR [id number]) OT Summary Assessment and Plan Potential Rehabilitation Potential Good Analytic Complexity at Evaluation Moderate Summary OT Impairments Range of Motion,Strength, Balance,Coordination, Functional Cognition, Functional Mobility,Grooming, Dressing,Toileting,Bathing, Toilet Transfers,Shower Transfers Progress Towards Goals Progressing Toward Goals Assessment Summary Pt presents as a mod complexity evaluation. Pt is currently still very lethargic and may improve quickly as his mental state clears. At this time the recommendation will be discharge to SNF. Pt will benefit from OT services to address all aspects of self care, strength, endurance, and cognition. Goals Self-Feeding Goal Independent Grooming Goal Independent Dressing Goal Independent Toileting Goal Independent Bathing Goal Independent Toilet Transfer Goal Independent Shower Transfer Goal Independent Days to Meet Goals 10 Frequency of Treatment Frequency Of Treatment Once a Day Treatment Plan OT Treatment Plan ADL Training,Functional Cognition Training,Functional Mobility,Patient/Family Education,Discharge Planning Other Treatment Recommendations and Next needs OOB assessment Treatment Focus cog assessment once able is able to fully participate Discharge Recommendations OT Discharge Recommendations SNF Rehab Home Equipment Needs TBD
[2019-04-03 15:06] LABS: Calcium 11.6 mg/dL (8.6-10.3); Parathyroid Hormone, Intact 357 pg/mL (14-64)
[2019-04-03 15:20] VITALS: BP 105/73; PULSE 98; RESP 16; TEMP 36.4
--- NOTE | 2019-04-03 15:45 | PT.IIE ---
Current Diagnoses Metabolic encephalopathy (03/30/19) Surgical History (Last Reviewed 03/30/19 @ 22:39 by OCHOA Rodriguez) Surgical history unknown (Acute) Medical History (Last Reviewed 03/30/19 @ 22:39 by OCHOA Rodriguez) Alcohol abuse (Acute) Back pain (Inactive) Pancreatitis (Inactive) Physical Therapy Inpatient Evaluation/Re-Eval M1 PT/OT-IP Prior Functional Status Start: 04/03/19 13:59 Freq: NEEDED Status: Active Protocol: Document 04/03/19 13:59 CGR (Rec: 04/03/19 14:15 CGR [id number]) Medical Review Prior Functional Status Medical History Reviewed Yes Communication Pt was able to communicate effectively. Mobility and Gait Pt was IND Activities of Daily Living and IADL's Pt was IND Social History Household Members none Living Arrangements House Number of Floors (Floors) One Floor Number of Stairs To Enter/Railing? 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 No hx found in chart. M1 PT/OT-IP Prior Functional Status Start: 04/03/19 16:15 Freq: NEEDED Status: Active Protocol: Document 04/03/19 15:45 AB (Rec: 04/03/19 16:52 AB [id number]) Medical Review Prior Functional Status Medical History Reviewed Yes Communication pt was able to answer questions inconsistently; keeps his eyes closed Mobility and Gait per pt: he is independent with all mobilities and ambulation without AD Prior Functional Level (Other details) pt has decrease cognitive level and unable to acquire home set up and PLOF info. called next of kin/person to contact to get info but was not successful. Social History Household Members none Employment Status Retired Additional Social History Comment pt ws unable to provide information regarding home set up. stated that he does not live in a house or an apartment or a trailer. no other info obtained from pt M2 PT-IP Current Condition Start: 04/03/19 16:15 Freq: NEEDED Status: Active Protocol: Document 04/03/19 15:45 AB (Rec: 04/03/19 16:52 AB [id number]) Physical Therapy Current Condition Current Condition Evaluation Date 04/03/19 Treatment Diagnosis acute metabolic encephalopathy ; difficulty in walking Onset Date 03/30/19 Precautions Other Precautions falls M3 PT-IP Subjective Start: 04/03/19 16:15 Freq: NEEDED Status: Active Protocol: Document 04/03/19 15:45 AB (Rec: 04/03/19 16:52 AB [id number]) Subjective Physical Therapy Visit Type Type Initial Evaluation Visit Start Time 15:45 Visit Stop Time 16:15 Total Visit Minutes 30 Number of MILLER HELPER DISTILLERY Visits 0 Physical Therapy Visit Comments Patient Comments pt refused to do much ambulation M4 PT-IP Mobility and Gait Start: 04/03/19 16:15 Freq: NEEDED Status: Active Protocol: Document 04/03/19 15:45 AB (Rec: 04/03/19 16:52 AB [id number]) PT-Bed Mobility Assessment Sit to Supine Sit to Supine Maximum Assistance,1 Person Assistance PT-Transfer Assessment Sit to and From Stand Sit to and from Stand Maximum Assistance,1 Person Assistance,2 Person Assistance ,Use of Upper Extremities Equipment Transfer Assistive Device Gait Belt,Front Wheeled Walker Orthotic/Prosthetic Devices or Brace: No Transfer Ability Level of Assist Maximum Assistance,1 Person Assistance,2 Person Assistance ,Use of Upper Extremities Comments Mobility Comments found pt in room with nursing standing using FWW. nurse was trying to clean pt and change his brief. assisted pt and pt was able to maintain standing using FWW max A x 1-2 and max cues. pt leaning his knees against the bed. pt sat down without warning requiring max A for controlled descent. pt instructed to stand up again requiring max A x 2 and refused and sat back down again. instructed to stand up again and completed max A x 2 and instructed to take side steps towards HOB and completed ~ 5 steps using FWW max A x 1-2 and max cues. requires assist with weight shifting. Gait Assessment Gait Gait Assistance Required: Maximum Assistance,1 Person Assist,2 Person Assist Distance (Feet) 3 Assistive Devices Assistive Device Gait Belt,Front Wheeled Walker Gait Deviations General Gait Pattern Antalgic,Decreased Stride Length,Decreased Feet Clearance Factors Limiting Gait Function Factors Limiting Gait Function Decreased Activity Tolerance, Decreased Strength,Poor Balance,Poor Safety Awareness Comments Gait Comments pls refer to mobility section for details PT-Balance Assessment Sitting Balance and Reactions Static Sitting Balance Ability Good Dynamic Sitting Balance Ability Fair Standing Balance and Reactions Static Standing Balance Ability Poor Dynamic Standing Balance Ability Poor Device Used FWW M5 PT-IP Objective Assessments Start: 04/03/19 16:15 Freq: NEEDED Status: Active Protocol: Document 04/03/19 15:45 AB (Rec: 04/03/19 16:52 AB [id number]) Orientation Orientation/Cognition Level of Alertness Confusional State Orientation Name Safety Awareness Decreased Safety Awareness Memory Description Short Term Impaired,Mcfp Impaired Gross Range of Motion Lower Extremity ROM Impairments RLE tightness Strength Lower Extremity Strength Assessment Bilaterally Impaired Comments Strength Comments grossly graded: 2+/5 but LLE is weaker than RLE; pt with difficulty following directions and unable to formally test muscle strength Coordination Assessment Gross Coordination Gross Coordination Impaired Muscle Tone Muscle Tone WNL Yes M7 PT-IP Assessment and Plan Start: 04/03/19 16:15 Freq: NEEDED Status: Active Protocol: Document 04/03/19 15:45 AB (Rec: 04/03/19 16:52 AB [id number]) PT Summary Assessment and Plan Potential Rehabilitation Potential Fair Status of Condition at Evaluation Evolving Summary Impairments Pain,ROM,Strength,Balance, Coordination,Sensation, Cognition,Bed Mobility, Transfers,Gait,Activity Tolerance Assessment Summary pt requirng 2 person assist with mobility requiring max cues with all tasks. pt with decrease cognition affecting following directions and safety awareness. d/c plan depending on progress but at this time, pt will benefit from SNF rehab. Goals Bed Mobility Goal Minimal Assistance Transfer Goal Minimal Assistance,Front Wheeled Walker Gait Goal Minimal Assistance,Front Wheel Walker Gait Distance 100 Days to Meet Goals 10 Frequency of Treatment Frequency Of Treatment Once a Day Treatment Plan Physical Therapy Treatment Plan Bed Mobility Training,Transfer Training,Gait Training, Therapeutic Exercise,Balance Retraining,Post Op Education, Discharge Planning,Hot or Cold Pack,Neuromuscular Re-ed, Coordination Retraining,Manual Therapy Other Recommendations and Next Treatment ambulation, transfers Focus Recommendations To Nursing Amount of Assist Needed 2 Person Assist Discharge Recommendations PT Discharge Recommendations SNF Rehab
[2019-04-03 20:15] VITALS: BP 109/71; PULSE 98; RESP 19; TEMP 36.3; O2SAT 100
--- NOTE | 2019-04-03 23:51 | PC.NURSE ---
Mary shift note: Received patient from ICU at change of shift, sleepy but easily arousable. As shift progressed, patient able to speak full sentences, had a conversation with Sister Elba. Oriented to self, and place. However, states he is admitted for meningitis. Up out of bed to BSC, able to follow commands. Up with PT prior to dinner. Tolerated dinner, sitting up in bed. CIWA 0. Multiple large brown soft stools and incontinent episodes of urine
[2019-04-04] VITALS (8 sets, daily range): BP systolic 97–136; BP diastolic 64–85; PULSE 95–103; RESP 16–18; TEMP 36.2–37.1; O2SAT 98–100
--- NOTE | 2019-04-04 00:22 | PC.NURSE ---
Fire Extinguisher Mechanic Note: 0000: Awake, getting out of bed, bed alarm sounding. Re-oriented to nurse call whiting. Assisted to get up to bathroom with walker, 2 person. Pt incontinent of urine and stool. Bed linen changed and henrry care given.
[2019-04-04] MEDS: ENOXAPARIN 40 MG/0.4 ML SYRINGE SUBCUT (10:44)
[2019-04-04] MEDS: FOLIC ACID 1 MG TABLET PO (10:44)
[2019-04-04] MEDS: NICOTINE 21 MG PATCH TOP (10:44)
[2019-04-04] MEDS: LACTULOSE 20 GM/30 ML SOLUTION PO ×2 (10:44→21:44)
--- NOTE | 2019-04-04 11:05 | OT.IP.TRT ---
Current Diagnoses Metabolic encephalopathy (03/30/19) Occupational Therapy Treatment Note M2 OT-IP Current Condition Start: 04/03/19 13:59 Freq: Status: Active Protocol: Document 04/03/19 13:59 CGR (Rec: 04/03/19 14:15 CGR [id number]) Occupational Therapy Current Condition Current Condition Evaluation Date 04/03/19 Treatment Diagnosis Metabolic encephalopathy Diagnosis Onset Date 03/30/19 M3 OT- IP Subjective and Pain Start: 04/03/19 13:59 Freq: Status: Active Protocol: Document 04/04/19 12:52 CGR (Rec: 04/04/19 13:07 CGR [id number]) OT- Subjective Occupational Therapy Visit Type Type Progress Note Visit Start Time 10:35 Visit Stop Time 11:05 Total Visit Minutes 30 Notes Partial co-treat with P.T. Occupational Therapy Visit Comments Patient Comments They told me this was a school . It looks like a school. OT Pain Assessment Pain When Pain Assessed At Rest Pain Present Pain Present Pain Reported Location Bilateral Leg Scale Used Pt unable to rate Management Techniques Distraction,Re-positioning M4 OT- IP ADL's Start: 04/03/19 13:59 Freq: Status: Active Protocol: Document 04/04/19 12:52 CGR (Rec: 04/04/19 13:07 CGR [id number]) OT [id number] Comments OT Self-Feeding Comments Not meal time OT ADL-Grooming General Evaluation Grooming Ability Maximum Assistance Comments OT Grooming Comments brushing hair while in bed then when seated. OT ADL-Oral Care Comments Oral Care Comments Pt declined OT ADL-Dressing General Eval Upper Body Dressing Ability Total Assistance Areas Needing Assistance Socks OT ADL-Toileting Comments OT Toileting Comments Not performed OT ADL-Bathing Comments OT Bathing Comments Not performed M5 OT- IP IADL's Start: 04/03/19 13:59 Freq: Status: Active Protocol: Document 04/03/19 13:59 CGR (Rec: 04/03/19 14:15 CGR [id number]) OT-Instrumental Activities of Daily Living Deficits IADL Deficits Identified Deficits Home Safety Awareness Awareness of Need for Assistance at Home Decreased Awareness Ability to Problem Solve Emergency Unable to Problem Solve Situations M6 OT- IP Functional Cognition Start: 04/03/19 13:59 Freq: Status: Active Protocol: Document 04/04/19 12:52 CGR (Rec: 04/04/19 13:07 CGR [id number]) Cognitive Factors Limiting Selfcare Function Cognitive Ability Level of Alertness Alert,Confusional State Patient Orientation Name,Birthday Attention Span Ability Capable of Focused Attention, Unable to Sustain Attention Ability to Follow Commands Able to Follow One Step Commands with Increased Time, Able to Follow One Step Commands with Repetition Memory Description Immediate Impaired,Short Term Impaired,Custodial Intact, Working Impaired Safety Awareness Underestimates Need for Assistance Problem Solving Ability Unable to Identify Errors, Needs Assist to Identify Solutions Cognitive Comments Cognitive Assessment Comments Pt is still confused stating it is 1998 and that he is in a school. He was oriented but then could not tell me where he was ~3 minutes later. Pt did confirm information obtained on his PLOF yesterday and reported consistent information. OT- Vision and Hearing OT- Hearing Assessment OT- Hearing Assessment WFL M7 OT- IP Mobility and Balance Start: 04/03/19 13:59 Freq: Status: Active Protocol: Document 04/04/19 12:52 CGR (Rec: 04/04/19 13:07 CGR [id number]) OT- Bed Mobility Assessment Supine to Sit Supine to Sit Assist Moderate Assistance,2 Person Assistance Sit to Supine Sit to Supine Assist Moderate Assistance,2 Person Assistance Scooting Scooting to Edge of Bed Moderate Assistance,2 Person Assistance OT-Transfer Assessment Sit to and From Stand Sit to and from Stand Minimal Assistance Comments Mobility Comments Pt stood at EOB but states that he is very fatigued and needed to sit. No further activity once returned to bed. OT- Balance Assessment Sitting Balance and Reactions Static Sitting Balance Ability Good Dynamic Sitting Balance Ability Fair M8 OT- IP Objective Assessments Start: 04/03/19 13:59 Freq: Status: Active Protocol: Document 04/03/19 13:59 CGR (Rec: 04/03/19 14:15 CGR [id number]) OT Gross Range of Motion Upper Extremity Range of Motion Assessment Bilaterally Impaired ROM Impairments R shld 0-110, L shld 0-90 OT Strength Upper Extremity Strength Assessment Bilaterally Impaired Comments Strength Comments B hands 3/5, B arms 4-/5, B shld 3-/5 OT- Coordination Assessment Comments Coordination Comments Pt unable to follow commands to perform. OT Sensation Assessment Comments Summary Comments Pt states typical sensations. Edema Edema Present Edema Comments moderate swelling noted to BUE on the proximal arm. M9 OT- IP Assessment and Plan Start: 04/03/19 13:59 Freq: Status: Active Protocol: Document 04/04/19 12:52 CGR (Rec: 04/04/19 13:07 CGR [id number]) OT Summary Assessment and Plan Potential Rehabilitation Potential Good Analytic Complexity at Evaluation Moderate Summary OT Impairments Range of Motion,Strength, Balance,Coordination, Functional Cognition, Functional Mobility,Grooming, Dressing,Toileting,Bathing, Toilet Transfers,Shower Transfers Progress Towards Goals Progressing Toward Goals Assessment Summary Pt presents as a mod complexity evaluation. Pt is currently still very lethargic and may improve quickly as his mental state clears. At this time the recommendation will be discharge to SNF. Pt will benefit from OT services to address all aspects of self care, strength, endurnace, and cognition. Goals Self-Feeding Goal Independent Grooming Goal Independent Dressing Goal Independent Toileting Goal Independent Bathing Goal Independent Toilet Transfer Goal Independent Shower Transfer Goal Independent Days to Meet Goals 10 Frequency of Treatment Frequency Of Treatment Once a Day Treatment Plan OT Treatment Plan ADL Training,Functional Cognition Training,Functional Mobility,Patient/Family Education,Discharge Planning Other Treatment Recommendations and Next needs further OOB assessment Treatment Focus cog assessment once able is able to fully participate Discharge Recommendations OT Discharge Recommendations SNF Rehab Home Equipment Needs TBD
--- NOTE | 2019-04-04 11:48 | PM.PN.1 ---
Subjective Subjective Date Patient Seen: 04/04/19 Time Patient Seen: 11:48 Interval history: He is seen today to follow-up his admission for acute delirium of hyperparathyroid hypercalcemia. His presenting calcium was 14.3 and is now normal, after being treated with Zometa, IV fluids, etc. His PTH is high at 357. A nuclear medicine parathyroid scan will be ordered. Other tests including rule out for multiple myeloma have also been ordered. Due to his confusion he is not able to discharge today or in the next day. We will see how that goes. He may need halfway facility. Exam Vital Signs (past 8 hours): - 04/04/19 05:57 04/04/19 08:00 Temperature 97.5 F L 97.3 F L Pulse Rate 95 H 96 H Respiratory Rate 16 16 Blood Pressure 136/83 104/64 Pulse Oximetry 99 100 Oxygen Delivery Method Room Air Oxygen Flow Rate 0 Narrative Exam Narrative: He is alert and oriented. He is slow moving and confused. He is wearing sequential compression devices Heart is regular rate and rhythm without murmur. Distant. Lungs are clear to auscultation bilaterally. Distant. There are large bruises on his arms. Objective Labs Result Diagrams: 04/03/19 04:35 04/03/19 04:35 Labs: Laboratory Results - last 24 hr 03/31/19 06:42 PTH Intact 357 H Calcium (PTH Intact) 11.6 H Assessment & Plan Assessment & Plan narrative: 1. Acute metabolic encephalopathy, present on admission improved. Etiology appears to be Hypercalcemia. The patient was found to be hypoglycemic and has no evidence to suggest stroke. His ammonia level was mildly elevated yesterday at 61. He received lactulose with some improvement. The patient is awake and alert today. He is appropriate and able to answer questions but continues to be confused. His diet has been advanced and physical therapy and occupational therapy will be seeing him. The patient will continue on lactulose 20 mg b.i.d. 2. Hypercalcemia, presumably secondary to hyperparathyroidism. Serum parathyroid hormone elevated at 357. The patient did receive 1 dose of Zometa, IV fluids, and Lasix. His calcium is normal today. Also pending are SPEP, UPEP, a 24 hour urine calcium. Nuclear medicine parathyroid scan now on order. 3. Chronic alcohol dependence, no evidence of withdrawal at this time 4. Macrocytic anemia, chronic likely related to ongoing alcohol use 5. Hypokalemia, resolved 6. Benign prostatic hypertrophy, chronic 7. Elevated liver function tests, likely related to ongoing alcohol dependence, CT of the abdomen suggestive of probable cirrhosis of the liver. Disposition: Likely to need SNF depending on clearing speed of his delirium. Quality VTE Deep Vein Thrombosis/Pulmonary Embolism Present on Admission: No
[2019-04-04] MEDS: THIAMINE 100 MG in DEXTROSE 5 % IN WATER 50 ML 204 ML IV (12:05)
[2019-04-04] MEDS: SODIUM CHLORIDE 0.9% FLUSH 10 ML IV ×2 (12:06→21:44)
--- NOTE | 2019-04-04 14:30 | PC.NURSE ---
Day Shift- Spoke with Chandana-admissions with [facility] at 1425 regarding pt's discharge planning TBD. Pt CIWA score 0. [place]ed to name and only[place]. 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 Pt has 2 times trying to get OOB indep, scoots himself to end of bed. Bottom side rails up with 1 head rail up and bed alarm on. Pt OOB with 1 PA using walker, does need verbal cues for direction at times, this AM assisting to BR, pt needed very little direction going from sitting on bed to BR and back. Pt able to pull down his briefs, did need some assistance to pull them back up. This afternoon, pt had large loose BM on his way from bed to BR, [employer] assisted pt with a shower.
--- NOTE | 2019-04-04 15:34 | PT.IPTN ---
Current Diagnoses Metabolic encephalopathy (03/30/19) Physical Therapy Treatment Note M2 PT-IP Current Condition Start: 04/03/19 16:15 Freq: NEEDED Status: Active Protocol: Document 04/03/19 15:45 AB (Rec: 04/03/19 16:52 AB [id number]) Physical Therapy Current Condition Current Condition Evaluation Date 04/03/19 Treatment Diagnosis acute metabolic encephalopathy ; difficulty in walking Onset Date 03/30/19 Precautions Other Precautions falls M3 PT-IP Subjective Start: 04/03/19 16:15 Freq: NEEDED Status: Active Protocol: Document 04/04/19 10:41 LJ (Rec: 04/04/19 15:34 LJ [id number]) Subjective Physical Therapy Visit Type Type Treatment Note Visit Start Time 10:41 Visit Stop Time 11:04 Total Visit Minutes 23 Notes Pt in bed. OT in room with pt. Pt reluctant to get up and participate in PT but agreed. Number of PROGRAM ADVOCATE Visits 1 M4 PT-IP Mobility and Gait Start: 04/03/19 16:15 Freq: NEEDED Status: Active Protocol: Document 04/04/19 10:41 LJ (Rec: 04/04/19 15:34 LJ [id number]) PT-Bed Mobility Assessment Sit to Supine Sit to Supine Minimal Assistance,Moderate Assistance,2 Person Assistance Scooting Scooting to Edge of Bed Maximum Assistance Scooting Up and Down in Bed Moderate Assistance,Maximum Assistance PT-Transfer Assessment Sit to and From Stand Sit to and from Stand Moderate Assistance,1 Person Assistance,2 Person Assistance ,Use of Upper Extremities Equipment Transfer Assistive Device Gait Belt,Front Wheeled Walker Orthotic/Prosthetic Devices or Brace: No Transfers Transfer Destination Bed Transfer Technique Forward/Backward Scoot Transfer Ability Level of Assist Minimal Assistance,2 Person Assistance,Use of Upper Extremities Comments Mobility Comments Pt required Glo-ModA for bed mobility with maxA for scooting to side of bed. Pt groaning with movement but able to followdorections. Once seated to side of bed pt was Glo x1 for sit<>stand with 2nd person as safety. Pt stood for several minutes shifting weight [id number]. When asked to do some marching pt was barely able to clear feet. Pt stated he was feeling cold and very tired and was unable to participate any longer with therapy. Pt sat back on bed and OT and PT assisted Glo for LEs and scooting ( MaxA) up in bed. Gait Assessment Comments Gait Comments unable at this time. M5 PT-IP Objective Assessments Start: 04/03/19 16:15 Freq: NEEDED Status: Active Protocol: Document 04/03/19 15:45 AB (Rec: 04/03/19 16:52 AB [id number]) Orientation Orientation/Cognition Level of Alertness Confusional State Orientation Name Safety Awareness Decreased Safety Awareness Memory Description Short Term Impaired,Fdc Impaired Gross Range of Motion Lower Extremity ROM Impairments RLE tightness Strength Lower Extremity Strength Assessment Bilaterally Impaired Comments Strength Comments grossly graded: 2+/5 but LLE is weaker than RLE; pt with difficulty following directions and unable to formally test muscle strength Coordination Assessment Gross Coordination Gross Coordination Impaired Muscle Tone Muscle Tone WNL Yes M6 PT-IP Treatment Start: 04/03/19 16:15 Freq: NEEDED Status: Active Protocol: Document 04/04/19 10:41 LJ (Rec: 04/04/19 15:34 LJ [id number]) Physical Therapy Treatment Exercises Exercises Ankle Pumps,Gluteal Sets M7 PT-IP Assessment and Plan Start: 04/03/19 16:15 Freq: NEEDED Status: Active Protocol: Document 04/04/19 10:41 LJ (Rec: 04/04/19 15:34 LJ [id number]) PT Summary Assessment and Plan Potential Rehabilitation Potential Fair Status of Condition at Evaluation Evolving Summary Impairments Pain,ROM,Strength,Balance, Coordination,Sensation, Cognition,Bed Mobility, Transfers,Gait,Activity Tolerance Assessment Summary Pt with decrease cognition affecting following directions and safety awareness. d/c plan depending on progress but at this time, pt will benefit from SNF rehab. Pt required Glo to MaxA for all mobility. Sit<>stand Glo x1 with another person for safety. Pt seated balance was good while OT assisted with grooming and nurse dispensing meds. Pt fatigued after several minutes of standing with very light exercise. Seated balance remained good and pt was able to return to seating position in a controlled manner. Required several cues for hand placement and body mechanics. Pt returned to bed with OT remaining in room to complete OT treatment session Goals Bed Mobility Goal Minimal Assistance Transfer Goal Minimal Assistance,Front Wheeled Walker Gait Goal Minimal Assistance,Front Wheel Walker Gait Distance 100 Days to Meet Goals 10 Frequency of Treatment Frequency Of Treatment Once a Day Treatment Plan Physical Therapy Treatment Plan Bed Mobility Training,Transfer Training,Gait Training, Therapeutic Exercise,Balance Retraining,Post Op Education, Discharge Planning,Hot or Cold Pack,Neuromuscular Re-ed, Coordination Retraining,Manual Therapy Other Recommendations and Next Treatment ambulation, transfers Focus Recommendations To Nursing Amount of Assist Needed 1 Person Assist,2 Person Assist Discharge Recommendations PT Discharge Recommendations SNF Rehab
--- NOTE | 2019-04-04 17:18 | CM.DPC ---
DCP Cont. SUPERVISOR ELECTRONIC TESTING met with pt to assess mentation and ability to provide information relating to his goals for d/c. Pt was reported by his RN to be disoriented as of this morning, [place] In meeting with him this afternoon, pt was awake and able to engage in conversation, however he was somnolent and had difficulty maintaining focus. He states that this type of event has never happened to him before, that he knew he had hit his head hard, but didn't know how long he had been unconscious. He was able to share that he does drink daily, the amount depends on how bad my day is, and his drink of choice of whiskey. He lives alone, has ample food in the house and has had no issues, per his self-report, in his ability to be independent in his ADL's and IDAL's. He shared that his sister, Elba, will arrive tomorrow after driving here from [facility], and that she is his primary support person in the family. Regarding discharge needs, he does not want to go to a SNF for rehab, and is not interested in any form of substance abuse intervention or treatment. He desires to go home with no additional resources or support. Pt ended up falling asleep during the last part of this interview. This SUPERVISOR ELECTRONIC TESTING called the APS worker, Tawnya Haas, and updated her re: pt's mental status and ability to engage more in conversation than previously. She will plan to come interview pt on Sunday.
--- NOTE | 2019-04-05 04:01 | PC.NURSE ---
Student nurse participating in pt care and administrations. All care performed by student has been under supervision of this fha underwriter.
[2019-04-05 05:00] VITALS: BP 122/70; PULSE 99; RESP 16; TEMP 37.1; O2SAT 98
[2019-04-05 08:00] VITALS: BP 123/68; PULSE 99; RESP 17; TEMP 37.2; O2SAT 100
[2019-04-05] MEDS: THIAMINE 100 MG in DEXTROSE 5 % IN WATER 50 ML 204 ML IV (09:25)
[2019-04-05] MEDS: NICOTINE 21 MG PATCH TOP (09:25)
[2019-04-05] MEDS: FOLIC ACID 1 MG TABLET PO (09:25)
[2019-04-05] MEDS: LACTULOSE 20 GM/30 ML SOLUTION PO ×2 (09:25→21:02)
[2019-04-05] MEDS: ENOXAPARIN 40 MG/0.4 ML SYRINGE SUBCUT (09:25)
--- NOTE | 2019-04-05 11:27 | PM.PN.1 ---
Subjective Subjective Date Patient Seen: 04/05/19 Time Patient Seen: 11:27 Interval history: He is seen today to follow-up his admission for acute delirium of hyperparathyroid hypercalcemia. His presenting calcium was 14.3 and is now normal, after being treated with Zometa, IV fluids, etc. His PTH is high at 357. A nuclear medicine parathyroid scan is pending. Other tests including rule out for multiple myeloma are also pending. Due to his confusion he is not able to discharge today, We will see how that goes. He may need long term facility. With his admitting albumin of 2.3 and several days without eating just prior to admission he has severe protein calorie malnutrition. He says he is feeling ?like hell? and points to all the bruises on his arms. Exam Vital Signs (past 8 hours): - 04/05/19 05:00 04/05/19 08:00 Temperature 98.7 F 99.0 F Pulse Rate 99 H 99 H Respiratory Rate 16 17 Blood Pressure 122/70 123/68 Pulse Oximetry 98 100 Oxygen Delivery Method Room Air Oxygen Flow Rate 0 Narrative Exam Narrative: He is alert and oriented x3. He is in no apparent distress. Heart is regular rate and rhythm without murmur. Lungs have upper airway sounds bilaterally but clear over the lungs. Extremities have no ankle edema. Skin has multiple bruises which appear to be maturing on the arms. Objective Labs Result Diagrams: 04/05/19 12:16 04/05/19 12:16 Assessment & Plan Assessment & Plan narrative: 1. Acute metabolic encephalopathy, present on admission improved. The etiology appears to be Hypercalcemia. His ammonia level was mildly elevated at 61. He received lactulose with some improvement. The patient is awake and alert today. He is appropriate and able to answer questions but continues to be somewhat confused. His diet has been advanced and physical therapy and occupational therapy are treating him. The patient will continue on lactulose 20 mg b.i.d. 2. Hypercalcemia, presumably secondary to hyperparathyroidism. Serum parathyroid hormone elevated at 357. The patient did receive 1 dose of Zometa, IV fluids, and Lasix. His calcium is normal today. Also pending are SPEP, UPEP, a 24 hour urine calcium. Nuclear medicine parathyroid scan now on order. 3. Chronic alcohol dependence, no evidence of withdrawal at this time 4. Macrocytic anemia, chronic likely related to ongoing alcohol use 5. Hypokalemia, resolved 6. Benign prostatic hypertrophy, chronic 7. Elevated liver function tests, likely related to ongoing alcohol dependence, CT of the abdomen suggestive of probable cirrhosis of the liver. 8. Severe Protein Calorie Malnutrition, improving with regular meals and nutritional assistance here. Disposition: Likely to need SNF depending on clearing speed of his delirium and weakness evident with PT/OT evaluations. Quality VTE Deep Vein Thrombosis/Pulmonary Embolism Present on Admission: No
[2019-04-05 12:00] VITALS: BP 116/74; PULSE 110; RESP 18; TEMP 37.5; O2SAT 99
[2019-04-05 12:51] LABS: Add Manual Diff / Slide Review NO; Basophils Absolute Auto 100 /uL (0-100); Basophils Percent Auto 1.2 % (0-2); Eosinophils Absolute Auto 100 /uL (0-450); Hematocrit 37.8 % (41-53); Hemoglobin 12.4 g/dL (13.5-17.5); Lymphocytes Absolute Auto 1100 /uL (1100-4500); Lymphocytes Percent Auto 11.6 % (25-40); Mean Corpuscular HGB Conc 32.8 % (30-36); Mean Corpuscular Hemoglobin 34.3 PG (26-34); Mean Corpuscular Volume 104.8 fL (80-100); Monocytes Absolute Auto 900 /uL (0-900); Monocytes Percent Auto 9.7 % (3-14); Neutrophils Absolute Auto 7500 /uL (1500-7000); Neutrophils Percent Auto 76.5 % (50-75); Platelet Count 100 X10^3/uL (150-400); Red Blood Cell Count 3.61 X10^6/uL (4.5-5.9); Red Cell Distribution Width 16.2 % (11.6-14.8); White Blood Cell Count 9.7 X10^3/uL (4.5-11.0)
[2019-04-05 12:53] LABS: Blood Urea Nitrogen 4 mg/dL (9-20); Calcium 8.7 mg/dL (8.4-10.2); Carbon Dioxide 21 mmol/L (22-32); Chloride 110 mmol/L (98-107); Estimated Glomerular Filt Rate > 60.0 mL/min (>60); Glucose 126 mg/dL (80-110); Potassium 3.8 mmol/L (3.4-5.1); Sodium 137 mmol/L (137-145)
[2019-04-05 12:56] LABS: HEMOLYSIS 74 (0-50)
--- NOTE | 2019-04-05 13:25 | CM.DPC ---
DCP Cont: Per MD, pt with new dx of hyperparathyroidism and likely needing a nuclear scan that likely isn't available over the weekend and possible need for Surgical Consult. MD does not anticipate that pt will be able to safely d/c directly home without SNF first. As of yesterday, pt was strongly declining SNF or ETOH treatment/resources. Pt may be more agreeable to further discussion of SNF after scan and possible surg consult after the weekend. Plan: SW to follow on Sunday with patient after further POC determined for medical needs to determine if pt more agreeable to SNF discussion before safe return home alone. Pt's sister/DPOA who lives on [facility] may be helpful in encouraging pt to receive the care he needs at d/c. ARUNA Austin
[2019-04-05 13:36] LABS: 1 25 Dihydroxy Vitamin D 24 pg/mL (18-72)
--- NOTE | 2019-04-05 14:28 | PT-IP ANOTE ---
Pt refused states he hurts all over and is to fatigue to move. Pt was up with NSG per RN.
--- NOTE | 2019-04-05 14:45 | OT.IP.TRT ---
Current Diagnoses Metabolic encephalopathy (03/30/19) Occupational Therapy Treatment Note M2 OT-IP Current Condition Start: 04/03/19 13:59 Freq: Status: Active Protocol: Document 04/03/19 13:59 CGR (Rec: 04/03/19 14:15 CGR [id number]) Occupational Therapy Current Condition Current Condition Evaluation Date 04/03/19 Treatment Diagnosis Metabolic encephalopathy Diagnosis Onset Date 03/30/19 M3 OT- IP Subjective and Pain Start: 04/03/19 13:59 Freq: Status: Active Protocol: Document 04/05/19 16:01 CGR (Rec: 04/05/19 16:03 CGR [id number]) OT- Subjective Occupational Therapy Visit Type Type Administrative Note Notes Attempted to see pt today. Pt declined and appears confused stating how late did you drive last night? Pt's sister present in PM and would like to be present to assist in encouraging pt to participate in tomorrows session with physical therapy. Will notify P.T.
[2019-04-05 16:28] VITALS: BP 99/69; PULSE 104; RESP 15; TEMP 36.8; O2SAT 97
--- NOTE | 2019-04-05 19:33 | PC.NURSE ---
Assumed care of pt at 1500. Pt resting in bed during bedside hand-off. Pt is much more clear and oriented today. Appropriate and cooperative with care. Sister Elba arrives and sitting at bedside. Urine sent for UA. Stools remain watery. Denies pain and calling appropriately for needs. Student nurse participating in pt care. All care completed by student has been under the supervision of this verse writer.
[2019-04-05 23:00] VITALS: BP 129/78; PULSE 102; RESP 16; TEMP 36.2; O2SAT 99
[2019-04-06] MEDS: ACETAMINOPHEN 325 MG TABLET 650 MG PO (04:04)
[2019-04-06 04:14] VITALS: BP 130/87; PULSE 100; RESP 16; TEMP 36.6; O2SAT 100
[2019-04-06 08:00] VITALS: BP 114/67; PULSE 100; RESP 18; TEMP 37.3; O2SAT 100
[2019-04-06] MEDS: FOLIC ACID 1 MG TABLET PO (09:57)
[2019-04-06] MEDS: ENOXAPARIN 40 MG/0.4 ML SYRINGE SUBCUT (09:57)
[2019-04-06] MEDS: NICOTINE 21 MG PATCH TOP (09:57)
[2019-04-06] MEDS: THIAMINE 100 MG TABLET PO (09:57)
[2019-04-06 12:00] VITALS: BP 118/81; PULSE 103; RESP 18; TEMP 37.1; O2SAT 100
--- NOTE | 2019-04-06 12:20 | P.PN_ITS ---
Subjective Subjective Date Patient Seen: 04/06/19 Time Patient Seen: 12:20 Interval history: He is seen today to follow up his Hypercalcemia and Hyperparathyroidism. He remains very weak and somewhat confused. He has been declining to take his lactulose. His calcium was 8.7 yesterday. His bruises continues to improve. I asked him about half-way facility placement and he was quite resistant today. He had a sequential series of objections which failed to explain how he would safely care for himself at home. Exam Vital Signs (past 8 hours): - 04/06/19 08:00 Temperature 99.2 F Pulse Rate 100 H Respiratory Rate 18 Blood Pressure 114/67 Pulse Oximetry 100 Oxygen Delivery Method Room Air Oxygen Flow Rate 0 Narrative Exam Narrative: He is alert and oriented x3. He is in no apparent distress. He is not able to acknowledge/realize his true level of strength/abilities at this point. Heart is regular rate and rhythm without murmur. Lungs are clear to auscultation bilaterally. Extremities have no ankle edema The bruising on his arms appears to be improving slowly. Objective Labs Result Diagrams: 04/05/19 12:16 04/05/19 12:16 Labs: Laboratory Results - last 24 hr 03/31/19 04/05/19 04/05/19 06:42 12:16 12:16 WBC 9.7 RBC 3.61 L Hgb 12.4 L Hct 37.8 L MCV 104.8 H MCH 34.3 H MCHC 32.8 RDW 16.2 H Plt Count 100 L Neut % (Auto) 76.5 H Lymph % (Auto) 11.6 L Meagher % (Auto) 9.7 Eos % (Auto) 1.0 L Baso % (Auto) 1.2 Neut # (Auto) 7500 H Lymph # (Auto) 1100 Meagher # (Auto) 900 Eos # (Auto) 100 Baso # (Auto) 100 Sodium 137 Potassium 3.8 Chloride 110 H Carbon Dioxide 21 L BUN 4 L Creatinine 0.40 L Estimated GFR > 60.0 BUN/Creatinine Ratio 10.0 Glucose 126 H Calcium 8.7 1,25 Dihydroxy Vit D 24 1,25 Dihydroxy Vit D2 16 1,25 Dihydroxy Vit D3 8 Assessment & Plan Assessment & Plan narrative: 1. Acute metabolic encephalopathy, present on admission improved. The etiology appears to be Hypercalcemia. His ammonia level was mildly elevated at 61. He received lactulose with some improvement initially but has now been declining to take it. He continues to be somewhat confused. His diet has been advanced and physical therapy and occupational therapy are treating him. The patient will continue on lactulose 20 mg b.i.d. We will check another ammonia level today. 2. Hypercalcemia, presumably secondary to hyperparathyroidism. Serum parathyroid hormone elevated at 357. The patient did receive 1 dose of Zometa, IV fluids, and Lasix. His calcium is normal now. Also pending are SPEP, UPEP, a 24 hour urine calcium. Nuclear medicine parathyroid scan now on order. 3. Chronic alcohol dependence, no evidence of withdrawal at this time 4. Macrocytic anemia, chronic likely related to ongoing alcohol use 5. Hypokalemia, resolved 6. Benign prostatic hypertrophy, chronic 7. Elevated liver function tests, likely related to ongoing alcohol dependence, CT of the abdomen suggestive of probable cirrhosis of the liver. 8. Severe Protein Calorie Malnutrition, improving with regular meals and nutritional assistance here. Disposition: Likely to need SNF depending on clearing speed of weakness evident with PT/OT evaluations. Quality VTE Deep Vein Thrombosis/Pulmonary Embolism Present on Admission: No
--- NOTE | 2019-04-06 12:41 | PT.IPTN ---
Current Diagnoses Metabolic encephalopathy (03/30/19) Physical Therapy Treatment Note M2 PT-IP Current Condition Start: 04/03/19 16:15 Freq: NEEDED Status: Active Protocol: Document 04/03/19 15:45 AB (Rec: 04/03/19 16:52 AB [id number]) Physical Therapy Current Condition Current Condition Evaluation Date 04/03/19 Treatment Diagnosis acute metabolic encephalopathy ; difficulty in walking Onset Date 03/30/19 Precautions Other Precautions falls M3 PT-IP Subjective Start: 04/03/19 16:15 Freq: NEEDED Status: Active Protocol: Document 04/06/19 11:50 LRN (Rec: 04/06/19 12:41 LRN [id number]) Subjective Physical Therapy Visit Type Type Treatment Note Visit Start Time 11:50 Visit Stop Time 12:22 Total Visit Minutes 32 Number of GAME DEVELOPER Visits 0 Physical Therapy Visit Comments Patient Comments Agreeable to therapy. Stated while walking this is when I fall down....cindy thats what I like to do. Pt was oriented to the hospital but thought he was in ER. Therapy Pain Assessment Pain When Pain Assessed At Rest Pain Present Pain Present Pain Reported Location Bilateral Leg Intensity 8 Scale Used Numeric (1 - 10) Description With Movement M4 PT-IP Mobility and Gait Start: 04/03/19 16:15 Freq: NEEDED Status: Active Protocol: Document 04/06/19 11:50 LRN (Rec: 04/06/19 12:41 LRN [id number]) PT-Bed Mobility Assessment Rolling Type of Rolling Roll to Left Level of Assist Minimal Assistance Supine to Sit Supine to Sit Moderate Assistance,1 Person Assistance Sit to Supine Sit to Supine Minimal Assistance,Moderate Assistance,1 Person Assistance Scooting Scooting to Edge of Bed Independent Scooting Up and Down in Bed Independent PT-Transfer Assessment Sit to and From Stand Sit to and from Stand Standby Assistance,1 Person Assistance,Use of Upper Extremities Equipment Transfer Assistive Device Gait Belt,Front Wheeled Walker Transfers Transfer Destination Bed Transfer Ability Level of Assist Minimal Assistance,1 Person Assistance Comments Mobility Comments Most assist needed with supine >sit transfer. Except for aligning in bed he was able to perform independent bed mobility. Pain, stiffness, lack of activity, limits his mobility. He appears to heavily lean on his walker and although verbalizes his potential falling, he appeared steady with use of the FWW. Gait Assessment Gait Gait Assistance Required: Contact Guard Assist,1 Person Assist Distance (Feet) 50 Able to Maintain Weight Bearing Status Yes During Gait Assistive Devices Assistive Device Gait Belt,Front Wheeled Walker Gait Deviations General Gait Pattern Decreased Stride Length, Decreased Feet Clearance, Flexed Trunk,Wide Based Gait Factors Limiting Gait Function Factors Limiting Gait Function Decreased Activity Tolerance, Decreased Strength,Pain,Poor Balance,Poor Safety Awareness Comments Gait Comments Pt joked of falling because its what I do, he appeared stable with FWW. M5 PT-IP Objective Assessments Start: 04/03/19 16:15 Freq: NEEDED Status: Active Protocol: Document 04/06/19 11:50 LRN (Rec: 04/06/19 12:41 LRN [id number]) Orientation Orientation/Cognition Level of Alertness Confusional State Orientation Name Safety Awareness Decreased Safety Awareness M6 PT-IP Treatment Start: 04/03/19 16:15 Freq: NEEDED Status: Active Protocol: Document 04/06/19 11:50 LRN (Rec: 04/06/19 12:41 LRN [id number]) Physical Therapy Treatment Other Treatments Other Treatment Performed Standing toe/heel raises. M7 PT-IP Assessment and Plan Start: 04/03/19 16:15 Freq: NEEDED Status: Active Protocol: Document 04/06/19 11:50 LRN (Rec: 04/06/19 12:41 LRN [id number]) PT Summary Assessment and Plan Potential Rehabilitation Potential Fair Status of Condition at Evaluation Evolving Summary Impairments Pain,ROM,Strength,Balance, Coordination,Sensation, Cognition,Bed Mobility, Transfers,Gait,Activity Tolerance Assessment Summary Pt appears to lack motivation and has low tolerance to activity. He appears to have some decreased cognition affecting following directions and safety awareness. The pt requires assist with transfers and for safety with gait; therefore at this time SNF for rehab is recommended. Pt sister was not present during therapy, but we will continue to try and coordinate this. Pt required most assist for sup>sit transfer and for safety with gait. Pt had low tolerance for standing exercises. Pt returned to bed with tray table placed for lunch and call light, phone placed in reach. Bed alarm and SCD's reset
--- NOTE | 2019-04-06 14:51 | PC.NURSE ---
Rec'd report and assumed care, Pt restful, watching TV and continuing with lunch.
[2019-04-06 16:50] VITALS: BP 118/62; PULSE 100; RESP 18; TEMP 36.2; O2SAT 98
--- NOTE | 2019-04-06 18:24 | PC.NURSE ---
Assumed care of pt at 1500. Pt resting in bed during bedside hand-off. Gets out of bed at sets off bed alarm at times. Reminded pt of call light use and demonstration provided. A/O to all questions except year. Steady on feet with FWW and gait belt but weakness remains. Door open for close monitoring. Bed alarm on. Student nurse participating in care/assessments, all care provided by student has been under the supervision of this procedure writer.
[2019-04-06 19:45] VITALS: BP 106/72; PULSE 105; RESP 18; TEMP 36.3
[2019-04-06] MEDS: SODIUM CHLORIDE 0.9% FLUSH 10 ML IV (21:48)
[2019-04-06 23:50] VITALS: BP 120/90; PULSE 102; RESP 22; TEMP 36.6; O2SAT 98
[2019-04-07 04:45] VITALS: BP 109/71; PULSE 102; RESP 16; TEMP 36.9; O2SAT 98
[2019-04-07 09:08] VITALS: BP 109/66; PULSE 106; RESP 14; TEMP 36.7; O2SAT 99
[2019-04-07] MEDS: FOLIC ACID 1 MG TABLET PO (09:16)
[2019-04-07] MEDS: NICOTINE 21 MG PATCH TOP (09:16)
[2019-04-07] MEDS: THIAMINE 100 MG TABLET PO (09:17)
[2019-04-07] MEDS: SODIUM CHLORIDE 0.9% FLUSH 10 ML IV (09:18)
--- NOTE | 2019-04-07 11:33 | PC.NURSE ---
Let (Darshan) know that patient refused his Lactulose, and that we held Lovenox for platelet level of 100. No new orders received.
--- NOTE | 2019-04-07 11:44 | CM.DPC ---
DCP/continued: Reviewed chart. Spoke with Dr. Sexton and patient is medically cleared for d/c. Met with patient explained role. Current recommendation is for patient to go to SNF. Patient adamantly refused. PT/Becka evaluated patient this AM and reports that he did better today with FWW. Patient also refusing HH. Patient expected to have scan today but MD reports that patient can follow up as outpatient. Patient aware and agreeable and reports that he would like to d/c home today. SENIOR HEALTH PHYSICS TECHNICIAN asked patient about transport. Patient reports that he has automobile in [facility] parking lot. Medical team all in agreement that patient should not drive today. Per previous CM team notes APS expected to see patient in hospital today? Left vm with APS worker Tawnya at [phone] informing her of anticipated discharge today after lunch. P: Home today. Patient refusing SNF and HH at time this. APS notified of disposition. ARUNA Gonzalez
--- NOTE | 2019-04-07 12:00 | PT.IPTN ---
Current Diagnoses Metabolic encephalopathy (03/30/19) Physical Therapy Treatment Note M2 PT-IP Current Condition Start: 04/03/19 16:15 Freq: NEEDED Status: Active Protocol: Document 04/03/19 15:45 AB (Rec: 04/03/19 16:52 AB [id number]) Physical Therapy Current Condition Current Condition Evaluation Date 04/03/19 Treatment Diagnosis acute metabolic encephalopathy ; difficulty in walking Onset Date 03/30/19 Precautions Other Precautions falls M3 PT-IP Subjective Start: 04/03/19 16:15 Freq: NEEDED Status: Active Protocol: Document 04/07/19 12:00 RS (Rec: 04/07/19 16:03 RS [id number]) Subjective Physical Therapy Visit Type Type Treatment Note Visit Start Time 11:00 Visit Stop Time 12:00 Total Visit Minutes 60 Physical Therapy Visit Comments Patient Comments Pt reports doing well, really wants to go home today. Reports he's getting help trying to figure out if anyone will be helping him at home. Patient Goals go home today Therapy Pain Assessment Pain When Pain Assessed During Mobility Pain Present Pain Present Pain Reported M4 PT-IP Mobility and Gait Start: 04/03/19 16:15 Freq: NEEDED Status: Active Protocol: Document 04/07/19 12:00 RS (Rec: 04/07/19 16:03 RS [id number]) PT-Bed Mobility Assessment Supine to Sit Supine to Sit Standby Assistance,Head of Bed Elevated Sit to Supine Sit to Supine Standby Assistance,Head of Bed Elevated Scooting Scooting to Edge of Bed Independent PT-Transfer Assessment Sit to and From Stand Sit to and from Stand Standby Assistance,1 Person Assistance Equipment Transfer Assistive Device Gait Belt,Front Wheeled Walker Transfers Transfer Destination Bed Transfer Technique walked Transfer Ability Level of Assist Standby Assistance,1 Person Assistance Comments Mobility Comments Pt did not need physical assist with any aspects of bed mobility and transfers with a FWW. No LOB. Gait Assessment Gait Gait Assistance Required: Standby Assistance,1 Person Assist Distance (Feet) 75 Assistive Devices Assistive Device Gait Belt,Front Wheeled Walker Gait Deviations General Gait Pattern Decreased Feet Clearance,Wide Based Gait Factors Limiting Gait Function Factors Limiting Gait Function Decreased Activity Tolerance, Decreased Strength,Pain,Poor Balance,Poor Safety Awareness Comments Gait Comments Pt denied feeling like he was going to fall today, also says it does feel a little better with walker a little taller. PT-Balance Assessment Sitting Balance and Reactions Static Sitting Balance Ability Normal Dynamic Sitting Balance Ability Good Standing Balance and Reactions Static Standing Balance Ability Good Dynamic Standing Balance Ability Fair Device Used FWW M5 PT-IP Objective Assessments Start: 04/03/19 16:15 Freq: NEEDED Status: Active Protocol: Document 04/06/19 11:50 LRN (Rec: 04/06/19 12:41 LRN [id number]) Orientation Orientation/Cognition Level of Alertness Confusional State Orientation Name Safety Awareness Decreased Safety Awareness M6 PT-IP Treatment Start: 04/03/19 16:15 Freq: NEEDED Status: Active Protocol: Document 04/06/19 11:50 LRN (Rec: 04/06/19 12:41 LRN [id number]) Physical Therapy Treatment Other Treatments Other Treatment Performed Standing toe/heel raises. M7 PT-IP Assessment and Plan Start: 04/03/19 16:15 Freq: NEEDED Status: Active Protocol: Document 04/07/19 12:00 RS (Rec: 04/07/19 16:03 RS [id number]) PT Summary Assessment and Plan Potential Rehabilitation Potential Fair Status of Condition at Evaluation Evolving Summary Impairments Pain,ROM,Strength,Balance, Coordination,Sensation, Cognition,Bed Mobility, Transfers,Gait,Activity Tolerance Progress Towards Goals Progressing Toward Goals Assessment Summary Pt with improved balance and activity tolerance today, didn 't need physical assist in any way. However, there are still cognitive concerns from a safety perspective. From strictly a mobility standpoint pt is safe to mobilize on his own with use of a FWW, but he will still likely need assist for overall life management. Recommend HHPT/OT. Frequency of Treatment Frequency Of Treatment Once a Day Treatment Plan Other Recommendations and Next Treatment balance, dual task, gait Focus Recommendations To Nursing Amount of Assist Needed 1 Person Assist Discharge Recommendations PT Discharge Recommendations Home with Assistance,Home Health
[2019-04-07 12:15] VITALS: BP 114/73; PULSE 105; RESP 15; TEMP 36.8; O2SAT 99
[2019-04-07] MEDS: TAMSULOSIN 0.4 MG CAPSULE PO (12:50)
[2019-04-07 16:00] VITALS: BP 116/67; PULSE 111; RESP 20; TEMP 36.1; O2SAT 100
--- NOTE | 2019-04-07 16:57 | CM.DPNOTE ---
Addendum entered by Meenakshi Smith 04/08/19 08:00: Received call from Tawnya at [facility] this AM she reports that she was out sick on 04-07-19. Notified Tawnya that patient discharged last pm. Tawnya confirms that d/c should not have been held for APS referral. Tawnya reports that she will f/u with patient and referral today. KJS Original Note: DCP/continued: Spoke with Dr. Sexton and he reports patient medically cleared for d/c. Met again with patient and he continues to refuse SNF or HH. Received call from sister/Elba whom is very upset that patient medically cleared for discharge. Sister was under impression that patient would be placed somewhere? Furthermore, she reports that she was called by APS (Tawnya) and that they were investigating patient and current living situation. SCRAP CRUSHER has left 3 messages with Tawnya at [facility] requesting return phone call. As of 5:00pm no call back received. Dr. Sexton reports that he believes patient capable of making medical decisions at this time. It is preferred by all of the medical team that patient go to SNF but patient cannot be forced to go. Sister believes that patient should go and she will speak with patient about changing his mind. SCRAP CRUSHER and RN/Manager Dialysis Rosa Elena met with sister Elba and sister Mika whom arrived to attempt to convince patient to change his mind. Patient did provide CM team with permission to speak with Elba outside his presence. Dr. Sexton in agreement to cancel d/c today only if patient agreeable to SNF tomorrow. At this time patient continues to refuse. SNF list provided to patient and sister. P: Pending above. RN aware of above. D/C home tonight vs. SNF tomorrow 04-08-19. ARUNA Gonzalez
--- NOTE | 2019-04-08 21:00 | P.DS_ITS ---
History of Present Illness History of Present Illness Date Patient Seen: 04/07/19 Time Patient Seen: 12:00 Chief complaint: altered mental status Narrative: As per OCHOA Rodriguez: Mr. Edson Stone is a 64-year-old male patient with history significant for chronic alcohol abuse, alcoholic pancreatitis, nicotine dependence and chronic back pain who presents to the ER via EMS with altered mental status. A family member had called police requesting a welfare check on the patient. On their arrival the patient was found down and minimally responsive. The patient is unable to provide any meaningful information as he is lethargic requiring repeated stimulation to respond to questions and disoriented providing varying responses to the year as 1998 or 1992. Patient is unable to provide subjective information however he does groan with movement and grimace on abdominal palpation. Upon arrival in the ER the patient is found to be afebrile with temperature 97.6?, heart rate of 98, blood pressure of 118/65, respiratory rate of 15 saturating 100% on room air. The patient was initially found to be hypoglycemic and had admitting blood glucose of 58 after which he received 25 g sugar IV with no change in presentation. Patient underwent a CT of the head which found no significant intracranial pathology and brain structures normal for age. Chest x-ray is unremarkable and a CT of the abdomen pelvis reveals a possible early right lower lobe pneumonia, nodular liver consistent with cirrhosis, gallbladder is normal no biliary dilatation, pancreas tail presents an area of hypodensity with internal fluid is noted be possibly related to prior necrotizing pancreatitis possible pseudocyst, abdominal free fluid is also noted. On laboratory testing the patient has a white count of 12.5 with a hemoglobin of 11.5 and hematocrit 34.7 and platelets of 200. His PT is 15.6 with a PTT of 36 and INR 1.3. His electrolytes are within normal range and has a BUN of 13 and creatinine of 0.7. As noted his glucose was 58. His calcium is severely elevated at 14.3. He has a total bilirubin of 2.6 with an AST of 61 and an ALT of 26, alkaline phosphatase 176, ammonia 13 and lipase of 213. His albumin is 2.9. He has procalcitonin 0.86 and lactic acid 1.6. Urinalysis obtained which finds trace protein and ketones but no blood nitrates or leukocyte esterase. Tox screen is negative with a BAL less than 10. The patient admitted to the hospital for altered mental status of unknown etiology possible alcohol withdrawal, hypoglycemia and hypercalcemia. 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 Comment: Alcoholic, gravely disabled [employer]ERIAL [employer]ING [employer]W SUPERVISOR Consult: Community Health Res Need 03/30/19 21:54 Consult to Care Management Routine Comment: Alcohol abuse, self care deficits Consult to Dietitian, Adult Routine Comment: Reason For Exam: cirrhosis, hypercalcemia Consult to Discharge Planning Routine Comment: 04/03/19 11:15 Consult to Occupational Therapy Evaluate & Treat Comment: Physician Instructions: Evaluate and treat Consult to Physical Therapy Evaluate & Treat Comment: Physician Instructions: Evaluate and Treat Discharge provider: Tito Sexton DO Summary Hospital Course Discharge Diagnosis: 1. acute metabolic encephalopathy, likely due to hypercalcemia, present on admission 2. Hypercalcemia secondary to hyperparathyroidism, present on admission 3. chronic alcohol dependence, present on admission 4. Macrocytic anemia, improved, stable, present on admission 5. Hypokalemia, acute, present on admission, resolved 6. Benign prostatic hypertrophy, chronic 7. Elevated liver function tests, resolved 8. Severe Protein Calorie Malnutrition, present on admission, improving Hospital Course: 1. Acute metabolic encephalopathy, present on admission improved. The etiology appears to be Hypercalcemia. His ammonia level was mildly elevated at 61. He received lactulose with some improvement initially but has now been declining to take it and his mental status has remained improved. Patient had repeat ammonia level which was unchanged and patient was fully alert and oriented upon discharge although there is some suspected cognitive impairment possibly due to alcoholism. He was able to, however, explain the risks and benefits of rehab and refused this upon discharge. 2. Hypercalcemia, presumably secondary to hyperparathyroidism. Serum parathyroid hormone elevated at 357. The patient did receive 1 dose of Zometa, IV fluids, and Lasix. His calcium is normal now. Also pending are SPEP, UPEP, a 24 hour urine calcium. A nuclear scan was ordered however this examination can be performed as an outpatient. The patient will need a surgical referral from his primary care provider, the surgeons here are unable to do a parathyroidectomy due to intraoperative lab testing which is not available. 3. Chronic alcohol dependence, patient was admitted as obtunded and had ipmrovement after treatment for hypercalcemia. 4. Macrocytic anemia, chronic likely related to ongoing alcohol use 5. Hypokalemia, resolved 6. Benign prostatic hypertrophy, chronic 7. Elevated liver function tests, likely related to ongoing alcohol dependence, CT of the abdomen suggestive of probable cirrhosis of the liver. These improved with cessation of alcohol while inpatient. 8. Severe Protein Calorie Malnutrition, improving with regular meals and nutritional assistance here. Patient was eating a diet upon discharge. He should refrain from alcohol as well. Exam Vital Signs (past 8 hours): Oxygen Delivery Method Room Air Oxygen Flow Rate 0 Narrative Exam Narrative: He is alert and oriented x3. There are no obvious neck masses or thyroid masses Heart is regular rate and rhythm without murmur. Lungs are clear to auscultation bilaterally. Extremities have no ankle edema The bruising on his arms appears to be improving slowly. Objective Labs Result Diagrams: 04/05/19 12:16 04/05/19 12:16 Discharge Plan Discharge Plan Patient Disposition: Home Discharge comment: You were admitted to the hospital for confusion. It was likely that this was due to a high calcium level for which he should see a primary care doctor for further workup. This was treated with zoledronic acid. Year confusion improved. It is also possible that some of this was due to hepatic encephalopathy, and you further improved somewhat with lactulose but refused to take this. I have sent this medication along with some vitamins and a medication for your prostate to your pharmacy. Your evaluated by Physical therapy more recommended for rehab placement, however you refused this. You should follow up with a primary care provider as soon as possible for a further evaluation of your high calcium which is due to hyperparathyroidism. You may need a nuclear scan to be done as an outpatient. Because of the calcium level, you should be evaluated by a surgeon as an outpatient to evaluate for a parathyroidectomy. This may be difficult given possible cirrhosis seen on CT imaging. This operation is not performed here and you will need a referral from your primary care doctor most likely. Discharge Med Rec/Prescriptions Prescriptions: New thiamine HCl (vitamin B1) [Vitamin B-1] 100 mg Tablet 100 mg PO DAILY 30 Days Qty: 30 RF: 0 folic acid 1 mg Tablet 1 mg PO DAILY 30 Days Qty: 30 RF: 0 lactulose 20 gram/30 mL Solution 20 gm PO BID 30 Days Qty: 1800 RF: 0 tamsulosin 0.4 mg capsule 0.4 mg PO BEDTIME 30 Days Qty: 30 RF: 0 Discontinued gabapentin [Neurontin] 300 MG capsule 3 tab PO TID Qty: 0 RF: 0 doxazosin [Cardura] 1 MG tablet 4 mg PO TID Qty: 0 RF: 0 Provider Discharge Instructions Diet: Low-sodium Activity: Please use ambulation assistance if unsteady, ideally you would work with physical therapy at rehab but you refused this. Visit Report/Discharge Packet Instructions: DI for Hypercalcemia, DI for Hyperparathyroidism Discharges patient from system. Discharge Date/Time: 04/07/19 18:55 Quality VTE Deep Vein Thrombosis/Pulmonary Embolism Present on Admission: No
[2019-04-08 21:51] LABS: Albumin 2.1 g/dL (3.8-4.8); Alpha 1 Globulin 0.4 g/dL (0.2-0.3); Alpha 2 Globulin 0.5 g/dL (0.5-0.9); Beta 1 Globulin 0.3 g/dL (0.4-0.6); Gamma Globulin 1.6 g/dL (0.8-1.7); Protein, Total 5.4 g/dL (6.1-8.1)
[2019-04-14 15:48] LABS: Albumin 100 %; Protein/ Creatinine Ratio 149 mg/g creat (22-128); Total Urine Protein 16 mg/dL (5-25); Urine Creatinine, Random 108 mg/dL (20-320)
== END 2019-04-07 18:55 | disposition home or self-care (01) | DRG 643 ==
LOC: ED 21:06 → AC 21:11 → ICU 21:33 → AC 04-03 15:11
PROVIDERS: Emergency Medicine; Family Medicine; Internal Medicine; Admitting Provider Nurse Practitioner Adult Health; Emergency Provider Emergency Medicine; Visit Provider Nurse Practitioner Adult Health
DX: E21.3 Hyperparathyroidism, unspecified (principal); G93.41 Metabolic encephalopathy; E43 Unspecified severe protein-calorie malnutrition; F10.20 Alcohol dependence, uncomplicated; K70.30 Alcoholic cirrhosis of liver without ascites; Y90.0 Blood alcohol level of less than 20 mg/100 ml; F17.200 Nicotine dependence, unspecified, uncomplicated; E16.2 Hypoglycemia, unspecified; M54.9 Dorsalgia, unspecified; G89.29 Other chronic pain; D53.9 Nutritional anemia, unspecified; R40.2362 Coma scale, best motor response, obeys commands, at arrival to emergency department; R40.2132 Coma scale, eyes open, to sound, at arrival to emergency department; R40.2242 Coma scale, best verbal response, confused conversation, at arrival to emergency department; D72.829 Elevated white blood cell count, unspecified; N40.0 Benign prostatic hyperplasia without lower urinary tract symptoms; F17.210 Nicotine dependence, cigarettes, uncomplicated; Z68.27 Body mass index [BMI] 27.0-27.9, adult
CPT/HCPCS: 36415; 51701; 70450; 71045; 71250; 74018; 74019; 74177; 80048; 80053; 80305; 80320; 80329; 81001; 82140; 82378; 82550; 82607; 82652; 82962; 83605; 83690; 83735; 83880; 83970; 84145; 84155; 84156; 84165; 84166; 84443; 84484; 85025; 85610; 85730; 86301; 86803; 86850; 86900; 86901; 87797; 93005; 94760; 96361; 96374; 97110; 97116; 97162; 97166; 97530; 97535; 99285; 99406; C9113; G0480; J0630; J0696; J1650; J1940; J2060; J2270; J3475; J3480; J3489; Q9967

== ENCOUNTER 2019-04-18 21:17 | Inpatient (IN) | payer OTHER, SELFPAY ==
[2019-03-30 21:31] VITALS: BMI 29.8
[2019-04-18 21:34] VITALS: BP 117/52; PULSE 102; RESP 23; TEMP 36.2; O2SAT 100
[2019-04-18 21:49] LABS: Add Manual Diff / Slide Review NO; Basophils Absolute Auto 100 /uL (0-100); Basophils Percent Auto 1.7 % (0-2); Eosinophils Absolute Auto 100 /uL (0-450); Eosinophils Percent Auto 0.9 % (2-4); Hematocrit 33.2 % (41-53); Lymphocytes Absolute Auto 1600 /uL (1100-4500); Lymphocytes Percent Auto 19.4 % (25-40); Mean Corpuscular HGB Conc 33.1 % (30-36); Mean Corpuscular Hemoglobin 33.7 PG (26-34); Mean Corpuscular Volume 101.7 fL (80-100); Monocytes Absolute Auto 900 /uL (0-900); Monocytes Percent Auto 10.8 % (3-14); Neutrophils Absolute Auto 5400 /uL (1500-7000); Neutrophils Percent Auto 67.2 % (50-75); Platelet Count 141 X10^3/uL (150-400); Red Blood Cell Count 3.27 X10^6/uL (4.5-5.9); Red Cell Distribution Width 15.7 % (11.6-14.8)
[2019-04-18 21:52] LABS: INR 1.6 (0.9-1.3); Prothrombin Time 18.9 SECONDS (10.1-12.7)
[2019-04-18 21:55] LABS: PTT Partial Thromboplastin Tim 40 SECONDS (26.4-36.2)
[2019-04-18 22:00] LABS: Alanine Aminotransferase 23 IU/L (<50); Albumin 2.3 g/dL (3.5-5.0); Albumin Globulin Ratio 0.7 (1.0-2.8); Alkaline Phosphatase 203 U/L (38-126); Aspartate Aminotransferase 58 IU/L (17-59); Bilirubin Total 2.4 mg/dL (0.2-1.3); Bilirubin Unconjugated 1.2 mg/dL (0.0-1.1); Globulin 3.3 g/dL (1.7-4.1); HEMOLYSIS 23 (0-50); Lipase 130 U/L (23-300); Magnesium 1.5 mg/dL (1.6-2.3); Phosphorous 1.8 mg/dL (2.3-3.7); Salicylate < 1.0 mg/dL (<20); Total Protein 5.6 g/dL (6.3-8.2)
[2019-04-18 22:01] LABS: Acetaminophen < 10 ug/mL (10-30); Blood Urea Nitrogen 9 mg/dL (9-20); Calcium 8.5 mg/dL (8.4-10.2); Carbon Dioxide 22 mmol/L (22-32); Chloride 105 mmol/L (98-107); Estimated Glomerular Filt Rate > 60.0 mL/min (>60); Ethanol (ETOH) < 10 mg/dL; Glucose 175 mg/dL (80-110); HEMOLYSIS 23 (0-50); Potassium 3.8 mmol/L (3.4-5.1); Sodium 134 mmol/L (137-145)
[2019-04-18 22:02] LABS: Lactate (Lactic Acid) 1.9 mmol/L (0.7-2.1)
--- NOTE | 2019-04-18 22:05 | DI.RAD.S_ITS ---
PROCEDURE: XR CHEST 1V INDICATIONS: COPD course breath sounds TECHNIQUE: One view of the chest was acquired. COMPARISON: [facility], CR, XR CHEST 1V, 04/01/2019, 11:51. FINDINGS: Surgical changes and devices: Postoperative changes of the right humerus are partially included on this examination related to a previous ORIF. Spinal stimulator apparatus is incidentally noted. Lungs and pleura: Lungs are clear. No focal consolidation is evident. No pleural effusions or pneumothorax. Mediastinum: Mediastinal contours appear normal. Heart size is normal. Bones and chest wall: No suspicious bony lesions. Overlying soft tissues appear unremarkable. IMPRESSION: Stable chest. No acute cardiopulmonary process is evident. Dictated by: Tung Snider M.D. on 04/19/2019 at 6:36 Approved by: Tung Snider M.D. on 04/19/2019 at 6:41
--- NOTE | 2019-04-18 22:05 | ED.WEAKNESS ---
HPI - Weakness General Chief complaint: Weakness Stated complaint: Weakness Time Seen by Provider: 04/18/19 21:21 Source: patient and family Mode of arrival: EMS Limitations: no limitations History of Present Illness HPI Narrative: 64-year-old male brought in by EMS for concerns of altered mental status, weakness, coarse breath sounds. He was admitted to the hospital here approximately 2 weeks ago for alcoholism. During that time he did have an elevated ammonia level. Was given lactulose. Also an elevated calcium. Was treated for this. According to the notes that time was discharged home after he was feeling better in the altered mental status went away. Was discharged home to his family. Was reported by his family that he denied the offer for group home or rehab facility. His parents are with him. They state that since he was discharged from the hospital he seems to have become more weak. They also noticed over the past couple days he has become more altered. They stated that he has not drank any alcohol since he was discharged from the hospital. It also appears that he has not been taking his lactulose. He refused to take the lactulose because the diarrhea that was causing him. No other toxic ingestions. Related Data Previous Rx's Medication Instructions Recorded folic acid 1 mg PO DAILY 30 Days #30 tab 04/07/19 lactulose 20 gm PO BID 30 Days #1800 ml 04/07/19 tamsulosin 0.4 mg PO BEDTIME 30 Days #30 cap 04/07/19 thiamine HCl (vitamin B1) [Vitamin 100 mg PO DAILY 30 Days #30 tab 04/07/19 B-1] Allergies Allergy/AdvReac Type Severity Reaction Status Date / Time No Known Drug Allergies Allergy Verified 04/18/19 21:33 Review of Systems Review of Systems Narrative: Mostly review of systems comes from the family. Constitutional Constitutional: Denies fever(s) and Reports weakness Cardiovascular Cardiovascular: Denies chest pain Respiratory Comments: Coarse breath sounds Gastrointestinal Gastrointestinal: Denies nausea and Denies vomiting Genitourinary Genitourinary: Denies dysuria Musculoskeletal Musculoskeletal: Reports myalgias, Reports arthralgias and Reports muscle weakness Integumentary/Breasts Skin/Breast: Denies rash Neurologic Neurologic: Reports behavioral changes, Reports confusion and Reports weakness Comments: Altered mental status Psychiatric Psychiatric: Reports behavioral changes and Reports confusion Hematologic/Lymphatic Hematologic/Lymphatic: Denies easy bleeding and Denies easy bruising Patient History Medical History Alcohol abuse (Acute) Back pain (Inactive) Pancreatitis (Inactive) Social History household members: none Smoking Status: Current every day smoker alcohol intake frequency: other Substance Use Type: does not use and painkillers Exam Initial Vital Signs Initial Vital Signs: Vital Signs Temperature 97.1 F L 04/18/19 21:34 Pulse Rate 102 H 04/18/19 21:34 Respiratory Rate 23 04/18/19 21:34 Blood Pressure 117/52 L 04/18/19 21:34 Pulse Oximetry 100 04/18/19 21:34 Const General: cooperative, well groomed and No acute distress Orientation: alert, awake, oriented to person, oriented to place, not oriented to time and confused HENMT Head: normal to inspection and normocephalic Chest Chest: normal inspection of the chest Resp Effort & Inspection: normal respiratory effort Auscultation: rhonchi Cardio Rate: tachycardic Rhythm: regular rhythm Pulses: radial pulses present GI Inspection: distended Palpation: soft, No firm and tender (Diffuse tenderness) Skin Lesions: no lesions Rashes: no rashes Neuro General: alert and awake Cognition: abnormal cognition (Confused about time and why he is here) Extrem General: edema (2+ bilateral lower extremity) Psych Appearance: grossly normal Scores GCS [place] coma scale eye opening: To sound Willy coma scale verbal response: Confused Willy coma scale motor response: Obey commands Willy coma scale total score: 13 Course Orders Ordered: ED Orders 04/18/19 21:25 Urine Drug Screen, Rapid Stat 04/18/19 21:28 Acetaminophen Stat Ammonia (NH3) Stat Basic Metabolic Panel Stat Complete Blood Count AUTO DIFF Stat Ethanol (ETOH) Stat Hepatic (Liver) Panel Stat Lactate (Lactic Acid) Stat Lipase Stat Magnesium Stat Partial Thromboplastin Time Stat Phosphorous Stat Procalcitonin Stat Prothrombin Time INR Stat Salicylate Stat 04/18/19 22:05 XR chest 1V Stat Sodium Chloride (Normal Saline 0.9%) 1,000 mls @ 100 mls/hr IV CONT SARAH Last Admin: 04/18/19 23:04 Dose: 100 mls/hr Documented by: KBROTEM Discontinued Medications Sodium Chloride (Normal Saline 0.9%) 1,000 mls @ 150 mls/hr IV CONT SARAH Last Admin: 04/18/19 21:38 Dose: Not Given Documented by: KBROTEM Lactulose (Enulose) 20 gm PO NOW ONE Stop: 04/19/19 00:13 Vital Signs Vital signs: Vital Signs - 8 hr 04/18/19 21:34 04/18/19 22:54 Temperature 97.1 F L Pulse Rate 102 H 98 H Respiratory Rate 23 25 H Blood Pressure 117/52 L Blood Pressure [Right Arm] 105/76 Pulse Oximetry 100 97 MDM - Weakness Medical Records Attestation: I reviewed the patient's medical records. Lab Data Attestation: I reviewed the patient's lab results. Result diagrams: 04/18/19 21:28 04/18/19 21:28 Labs: Lab Results 04/18/19 04/18/19 04/18/19 Range/Units 21:28 21:28 21:28 WBC 8.0 (4.5-11.0) X10^3/uL RBC 3.27 L (4.5-5.9) X10^6/uL Hgb 11.0 L (13.5-17.5) g/dL Hct 33.2 L (41-53) % MCV 101.7 H (80-100) fL MCH 33.7 (26-34) PG MCHC 33.1 (30-36) % RDW 15.7 H (11.6-14.8) % Plt Count 141 L (150-400) X10^3/uL Neut % (Auto) 67.2 (50-75) % Lymph % (Auto) 19.4 L (25-40) % Braxton % (Auto) 10.8 (3-14) % Eos % (Auto) 0.9 L (2-4) % Baso % (Auto) 1.7 (0-2) % Neut # (Auto) 5400 (2411-7736) /uL Lymph # (Auto) 1600 (8689-6402) /uL Braxton # (Auto) 900 (0-900) /uL Eos # (Auto) 100 (0-450) /uL Baso # (Auto) 100 (0-100) /uL PT (10.1-12.7) SECONDS INR (0.9-1.3) APTT (26.4-36.2) SECONDS Sodium 134 L (137-145) mmol/L Potassium 3.8 (3.4-5.1) mmol/L Chloride 105 (98-107) mmol/L Carbon Dioxide 22 (22-32) mmol/L BUN 9 (9-20) mg/dL Creatinine 0.60 L (0.66-1.25) mg/dL Estimated GFR > 60.0 (>60) mL/min BUN/Creatinine Ratio 15.0 (6-22) Glucose 175 H (80-110) mg/dL Lactate (0.7-2.1) mmol/L Calcium 8.5 (8.4-10.2) mg/dL Phosphorus (2.3-3.7) mg/dL Magnesium (1.6-2.3) mg/dL Total Bilirubin (0.2-1.3) mg/dL Conjugated Bilirubin (0.0-0.3) md/dL Unconjugated Bilirubin (0.0-1.1) mg/dL AST (17-59) IU/L ALT (<50) IU/L Alkaline Phosphatase (38-126) U/L Ammonia 68.0 H (9-30) umol/L Total Protein (6.3-8.2) g/dL Albumin (3.5-5.0) g/dL Globulin (1.7-4.1) g/dL Albumin/Globulin Ratio (1.0-2.8) Lipase (23-300) U/L Procalcitonin (<0.5) ng/mL Salicylates (<20) mg/dL Acetaminophen < 10 L (10-30) ug/mL Ethyl Alcohol < 10 ( - 10) mg/dL 04/18/19 04/18/19 04/18/19 Range/Units 21:28 21:28 21:28 WBC (4.5-11.0) X10^3/uL RBC (4.5-5.9) X10^6/uL Hgb (13.5-17.5) g/dL Hct (41-53) % MCV (80-100) fL MCH (26-34) PG MCHC (30-36) % RDW (11.6-14.8) % Plt Count (150-400) X10^3/uL Neut % (Auto) (50-75) % Lymph % (Auto) (25-40) % Braxton % (Auto) (3-14) % Eos % (Auto) (2-4) % Baso % (Auto) (0-2) % Neut # (Auto) (4297-0343) /uL Lymph # (Auto) (3232-5741) /uL Braxton # (Auto) (0-900) /uL Eos # (Auto) (0-450) /uL Baso # (Auto) (0-100) /uL PT 18.9 H (10.1-12.7) SECONDS INR 1.6 H (0.9-1.3) APTT 40 H D (26.4-36.2) SECONDS Sodium (137-145) mmol/L Potassium (3.4-5.1) mmol/L Chloride (98-107) mmol/L Carbon Dioxide (22-32) mmol/L BUN (9-20) mg/dL Creatinine (0.66-1.25) mg/dL Estimated GFR (>60) mL/min BUN/Creatinine Ratio (6-22) Glucose (80-110) mg/dL Lactate (0.7-2.1) mmol/L Calcium (8.4-10.2) mg/dL Phosphorus 1.8 L (2.3-3.7) mg/dL Magnesium 1.5 L (1.6-2.3) mg/dL Total Bilirubin 2.4 H (0.2-1.3) mg/dL Conjugated Bilirubin 0.0 (0.0-0.3) md/dL Unconjugated Bilirubin 1.2 H (0.0-1.1) mg/dL AST 58 (17-59) IU/L ALT 23 (<50) IU/L Alkaline Phosphatase 203 H (38-126) U/L Ammonia (9-30) umol/L Total Protein 5.6 L (6.3-8.2) g/dL Albumin 2.3 L (3.5-5.0) g/dL Globulin 3.3 (1.7-4.1) g/dL Albumin/Globulin Ratio 0.7 L (1.0-2.8) Lipase 130 (23-300) U/L Procalcitonin 0.11 (<0.5) ng/mL Salicylates < 1.0 (<20) mg/dL Acetaminophen (10-30) ug/mL Ethyl Alcohol ( - 10) mg/dL 04/18/19 Range/Units 21:28 WBC (4.5-11.0) X10^3/uL RBC (4.5-5.9) X10^6/uL Hgb (13.5-17.5) g/dL Hct (41-53) % MCV (80-100) fL MCH (26-34) PG MCHC (30-36) % RDW (11.6-14.8) % Plt Count (150-400) X10^3/uL Neut % (Auto) (50-75) % Lymph % (Auto) (25-40) % Braxton % (Auto) (3-14) % Eos % (Auto) (2-4) % Baso % (Auto) (0-2) % Neut # (Auto) (0745-2967) /uL Lymph # (Auto) (4408-2556) /uL Braxton # (Auto) (0-900) /uL Eos # (Auto) (0-450) /uL Baso # (Auto) (0-100) /uL PT (10.1-12.7) SECONDS INR (0.9-1.3) APTT (26.4-36.2) SECONDS Sodium (137-145) mmol/L Potassium (3.4-5.1) mmol/L Chloride (98-107) mmol/L Carbon Dioxide (22-32) mmol/L BUN (9-20) mg/dL Creatinine (0.66-1.25) mg/dL Estimated GFR (>60) mL/min BUN/Creatinine Ratio (6-22) Glucose (80-110) mg/dL Lactate 1.9 (0.7-2.1) mmol/L Calcium (8.4-10.2) mg/dL Phosphorus (2.3-3.7) mg/dL Magnesium (1.6-2.3) mg/dL Total Bilirubin (0.2-1.3) mg/dL Conjugated Bilirubin (0.0-0.3) md/dL Unconjugated Bilirubin (0.0-1.1) mg/dL AST (17-59) IU/L ALT (<50) IU/L Alkaline Phosphatase (38-126) U/L Ammonia (9-30) umol/L Total Protein (6.3-8.2) g/dL Albumin (3.5-5.0) g/dL Globulin (1.7-4.1) g/dL Albumin/Globulin Ratio (1.0-2.8) Lipase (23-300) U/L Procalcitonin (<0.5) ng/mL Salicylates (<20) mg/dL Acetaminophen (10-30) ug/mL Ethyl Alcohol ( - 10) mg/dL Imaging Data Chest x-ray: Attestation: I personally reviewed and interpreted this imaging study as follows: My impression: No acute pathology MDM Narrative Medical decision making narrative: Patient does have an elevated ammonia today. It appears that he has not been taken any of his lactulose since being discharged from the hospital. I suspect that his weakness and altered mental status and confusion is secondary to this. His calcium is unremarkable today. He does have diffuse abdominal tenderness however this does not appear to be new. It also appears that he has not been eating or drinking well recently. Family denies that he has drank any alcohol since being discharged from the hospital. Initially patient did not want to take the lactulose. It appears that when he was admitted to the hospital last time he refused to take it because of the diarrhea that was causing him. The family did not realize that he would need this medication as an outpatient so when he refused to take it at home they did not think much of it. Family had a long discussion with the patient. I did inform them that if he does not take the lactulose he could potentially get worse and worse. They have not had any discussions about hospice or palliative care. After the family talked with the patient he did agree to take the lactulose. Discussed the case with ELVIS alarcon who will admit for further evaluation treatment. Discussed the admission with the family expressed understanding and agreement. Discharge Plan Departure Patient Disposition: Admitted As Inpatient Clinical Impression: Encephalopathy, hepatic Cirrhosis Qualifiers: Hepatic cirrhosis type: alcoholic cirrhosis Ascites presence: unspecified Qualified Code(s): K70.30 - Alcoholic cirrhosis of liver without ascites Altered mental status Qualifiers: Altered mental status type: unspecified Qualified Code(s): R41.82 - Altered mental status, unspecified Admit Date/Time: 04/19/19 00:18 Admit Provider: Emma Alarcon
[2019-04-18 22:14] LABS: Procalcitonin 0.11 ng/mL (<0.5)
--- NOTE | 2019-04-18 22:33 | PC.NURSE ---
NS started from medics
[2019-04-18 22:54] VITALS: BP 105/76; PULSE 98; RESP 25; O2SAT 97
[2019-04-18] MEDS: SODIUM CHLORIDE 0.9% 1,000 ML 100 ML IV (23:04)
[2019-04-19] VITALS (12 sets, daily range): BP systolic 100–123; BP diastolic 55–75; PULSE 67–100; RESP 16–24; TEMP 36.2–36.8; O2SAT 93–98; BMI 31.5
[2019-04-19] MEDS: LACTULOSE 20 GM/30 ML SOLUTION PO ×2 (02:04→10:04)
[2019-04-19] MEDS: NICOTINE 21 MG PATCH TOP (02:12)
[2019-04-19] MEDS: MORPHINE 2 MG/ML INJ IV ×2 (02:29→11:10)
[2019-04-19] MEDS: SODIUM CHLORIDE 0.9% 1,000 ML 125 ML IV (02:29)
--- NOTE | 2019-04-19 02:33 | P.HP_ITS ---
History of Present Illness History of Present Illness Date Patient Seen: 04/19/19 Time Patient Seen: 01:00 Chief complaint: Weakness Narrative: Junior Stone is a 64 y.o. male with a history of alcoholism and liver cirrhosis, tobacco dependence recently discharged for hepatic encephalopathy on April 07, hypercalcemia associated with hyperparathyroidism, and metabolic derangements returns today for elevated ammonia levels. Out of town and local family members were available to provide a history on the patient. They stated upon discharge, he continued alcohol abstinence, but did not take lactulose because he objected to the diarrhea. Stated he was not eating except for a few bites every few days, most of the time staying in bed. He became a 3-person assist with his family and they were unable to provide any more care for him. Patient is very lethargic and unable to provide a history, only that he did not want to continue to take the lactulose. Initially, I declined the admission, family stated they wanted to have him admitted for hospice. The ED provider then spoke to the family and the patient and he agreed to take the lactulose until he was clear and able to tell his family what further he wanted to do. During his prior admission, they discussed re-hab, which he refused due to his not wanting to quit smoking. Patient History Medical History (Updated 04/19/19 @ 02:45 by OCHOA Kaiser) Alcohol abuse (Acute) Back pain (Inactive) Cirrhosis (Acute) Encephalopathy, hepatic (Acute) Pancreatitis (Inactive) Surgical History Surgical history unknown (Acute) Family & Social History Family History (Updated 04/19/19 @ 02:46 by OCHOA Kaiser) Mother Hypothyroidism Sister Hypothyroidism Father Diabetes mellitus Social History: household members none Prior Living Arrangements House Safety & Behavioral: Feels Safe in Current Yes Environment Been Physically Hurt or No Threatened By a Person Suicidal Ideation Description None Suicide Plan Description No Plan Tobacco & Substance use: Smoking Status Current every day smoker Smoking packs per day 3 alcohol intake current alcohol intake frequency other Substance Use Type painkillers,does not use Meds Home Medications and Allergies Home Medications Medication Instructions Recorded Confirmed Type folic acid 1 mg PO DAILY 30 Days #30 tab 04/07/19 04/19/19 Rx lactulose 20 gm PO BID 30 Days #1800 ml 04/07/19 04/19/19 Rx tamsulosin 0.4 mg PO BEDTIME 30 Days #30 cap 04/07/19 04/19/19 Rx thiamine HCl (vitamin B1) [Vitamin 100 mg PO DAILY 30 Days #30 tab 04/07/19 04/19/19 Rx B-1] Allergies Allergy/AdvReac Type Severity Reaction Status Date / Time No Known Drug Allergies Allergy Verified 04/18/19 21:33 Review of Systems Review of Systems ROS Unobtainable: unobtainable due to mental status Exam Vital Signs (past 8 hours): - 04/18/19 21:34 04/18/19 22:54 04/19/19 00:59 Temperature 97.1 F L Pulse Rate 102 H 98 H 100 H Respiratory Rate 23 25 H 24 Blood Pressure 117/52 L 101/70 Blood Pressure [Right Arm] 105/76 Pulse Oximetry 100 97 95 04/19/19 01:50 Temperature 97.6 F Pulse Rate 98 H Respiratory Rate 20 Blood Pressure 123/71 Blood Pressure [Right Arm] Pulse Oximetry 95 Oxygen Delivery Method Room Air Oxygen Flow Rate 0 Narrative Exam Narrative: Gen: Lethargic and ill appearing 64 y.o. male HEENT: normocephalic, atraumatic, conjunctiva clear, mild scleral icteris, oral mucosa pink and moist Neck: supple, full ROM Resp: Lungs CTA, non-labored breathing CV: RRR, no murmur or rubs Abd: soft, non-tender, normoactive BTs Skin: no lesions or rashes, dry and intact Neuro: Lethargic, but arousable, unable to maintain a complete sentence.GCS 14 Extremities: Weak Psyche: Confused Objective Labs Result Diagrams: 04/18/19 21:28 04/18/19 21:28 Labs: Laboratory Results - last 24 hr 04/18/19 04/18/19 04/18/19 21:28 21:28 21:28 WBC 8.0 RBC 3.27 L Hgb 11.0 L Hct 33.2 L MCV 101.7 H MCH 33.7 MCHC 33.1 RDW 15.7 H Plt Count 141 L Neut % (Auto) 67.2 Lymph % (Auto) 19.4 L Preston % (Auto) 10.8 Eos % (Auto) 0.9 L Baso % (Auto) 1.7 Neut # (Auto) 5400 Lymph # (Auto) 1600 [place] # (Auto) 900 Eos # (Auto) 100 Baso # (Auto) 100 PT INR APTT Sodium 134 L Potassium 3.8 Chloride 105 Carbon Dioxide 22 BUN 9 Creatinine 0.60 L Estimated GFR > 60.0 BUN/Creatinine Ratio 15.0 Glucose 175 H Lactate Calcium 8.5 Phosphorus Magnesium Total Bilirubin Conjugated Bilirubin Unconjugated Bilirubin AST ALT Alkaline Phosphatase Ammonia 68.0 H Total Protein Albumin Globulin Albumin/Globulin Ratio Lipase Procalcitonin Salicylates Acetaminophen < 10 L Ethyl Alcohol < 10 04/18/19 04/18/19 04/18/19 21:28 21:28 21:28 WBC RBC Hgb Hct MCV MCH MCHC RDW Plt Count Neut % (Auto) Lymph % (Auto) Preston % (Auto) Eos % (Auto) Baso % (Auto) Neut # (Auto) Lymph # (Auto) Preston # (Auto) Eos # (Auto) Baso # (Auto) PT 18.9 H INR 1.6 H APTT 40 H D Sodium Potassium Chloride Carbon Dioxide BUN Creatinine Estimated GFR BUN/Creatinine Ratio Glucose Lactate Calcium Phosphorus 1.8 L Magnesium 1.5 L Total Bilirubin 2.4 H Conjugated Bilirubin 0.0 Unconjugated Bilirubin 1.2 H AST 58 ALT 23 Alkaline Phosphatase 203 H Ammonia Total Protein 5.6 L Albumin 2.3 L Globulin 3.3 Albumin/Globulin Ratio 0.7 L Lipase 130 Procalcitonin 0.11 Salicylates < 1.0 Acetaminophen Ethyl Alcohol 04/18/19 21:28 WBC RBC Hgb Hct MCV MCH MCHC RDW Plt Count Neut % (Auto) Lymph % (Auto) Preston % (Auto) Eos % (Auto) Baso % (Auto) Neut # (Auto) Lymph # (Auto) Preston # (Auto) Eos # (Auto) Baso # (Auto) PT INR APTT Sodium Potassium Chloride Carbon Dioxide BUN Creatinine Estimated GFR BUN/Creatinine Ratio Glucose Lactate 1.9 Calcium Phosphorus Magnesium Total Bilirubin Conjugated Bilirubin Unconjugated Bilirubin AST ALT Alkaline Phosphatase Ammonia Total Protein Albumin Globulin Albumin/Globulin Ratio Lipase Procalcitonin Salicylates Acetaminophen Ethyl Alcohol Assessment & Plan Assessment & Plan narrative: Junior Stone is admitted for acute hepatic encephalopathy due to non- compliance 1. Acute metabolic encephalopathy, likely due to elevated ammonia level, present on admission * Ammonia level is 68, higher than on previous admission * He will receive lactulose q 6 hours * If he declines, will need to do rectal administration of lactulose * During his last admission, he declined to take it, family members are present to attempt to persuade him to take it. * Family is considering hospice, but would like for the patient to be more clear and able to communicate his desires prior placing on hospice 2. End stage liver disease likely cirrhosis * MELD score of 15 * Child Alves Class C 3. Severe Protein Calorie Malnutrition, acute and present on admission * Encourage PO intake * He is placed on aspiration precautions due to his lethargy 4. Chronic alcohol dependence, present on admission * Patient had reportedly not been drinking alcohol since discharge * Continue home doses of thiamine and folic acid 5. History of hypercalcemia secondary to hyperparathyroidism, now normalized * Patient was referred outpatient for a surgical evaluation, not clear if this has been followed up upon * If he clears and wishes to proceed with this, [facility] 6. Tobacco dependence * Patient smokes 3 packs a day * He will have a 21 mcg nicotine patch while admitted 7. History of hypokalemia, now normalized * Monitor daily 8. Benign prostatic hypertrophy, chronic and stable * Continue Tamsulosin 0.4 mg po at hs Patient is admitted inpatient as his stay is anticipated to exceed 2 midnights. FEN: NS at 125 ml/hour, clear diet advance as tolerated, chemistries in the am. VTE Prophylaxis: Enoxaparin 40 mg subQ daily Disposition: unknown at this time Code status: Full code Admission time: 90 minutes Meds reconciled: Yes Time Spent With Patient Time with patient: 25 - 35 minutes Scores GCS [place] coma scale eye opening: Spontaneous Willy coma scale verbal response: Confused Taylor coma scale motor response: Obey commands Willy coma scale total score: 14 Quality VTE Deep Vein Thrombosis/Pulmonary Embolism Present on Admission: No
[2019-04-19 05:52] LABS: Add Manual Diff / Slide Review NO; Basophils Absolute Auto 0 /uL (0-100); Basophils Percent Auto 0.5 % (0-2); Eosinophils Absolute Auto 200 /uL (0-450); Eosinophils Percent Auto 1.6 % (2-4); Hematocrit 33.2 % (41-53); Hemoglobin 11.2 g/dL (13.5-17.5); Lymphocytes Absolute Auto 1800 /uL (1100-4500); Lymphocytes Percent Auto 18.9 % (25-40); Mean Corpuscular HGB Conc 33.6 % (30-36); Mean Corpuscular Hemoglobin 34.1 PG (26-34); Mean Corpuscular Volume 101.5 fL (80-100); Monocytes Absolute Auto 1300 /uL (0-900); Monocytes Percent Auto 13.6 % (3-14); Neutrophils Absolute Auto 6100 /uL (1500-7000); Neutrophils Percent Auto 65.4 % (50-75); Platelet Count 152 X10^3/uL (150-400); Red Blood Cell Count 3.28 X10^6/uL (4.5-5.9); Red Cell Distribution Width 15.6 % (11.6-14.8); White Blood Cell Count 9.4 X10^3/uL (4.5-11.0)
[2019-04-19] MEDS: ONDANSETRON 4 MG/2 ML INJ IV ×3 (06:04→23:41)
[2019-04-19 06:05] LABS: INR 1.6 (0.9-1.3)
[2019-04-19 06:12] LABS: Alanine Aminotransferase 25 IU/L (<50); Albumin 2.3 g/dL (3.5-5.0); Albumin Globulin Ratio 0.6 (1.0-2.8); Alkaline Phosphatase 215 U/L (38-126); Aspartate Aminotransferase 62 IU/L (17-59); Bilirubin Total 2.2 mg/dL (0.2-1.3); Blood Urea Nitrogen 8 mg/dL (9-20); Calcium 8.4 mg/dL (8.4-10.2); Carbon Dioxide 21 mmol/L (22-32); Chloride 108 mmol/L (98-107); Estimated Glomerular Filt Rate > 60.0 mL/min (>60); Globulin 3.7 g/dL (1.7-4.1); Glucose 106 mg/dL (80-110); HEMOLYSIS 39 (0-50); Potassium 3.8 mmol/L (3.4-5.1); Sodium 135 mmol/L (137-145)
[2019-04-19 06:38] LABS: Appearance Urine UA SL CLOUDY; Bacteria Urine None Seen; Bilirubin Urine UA 1+ (NEGATIVE); Glucose Urine UA NEGATIVE (Negative); Ketones Urine UA NEGATIVE (NEGATIVE); Leukocyte Esterase Urine UA NEGATIVE (NEGATIVE); Nitrite Urine UA NEGATIVE (Negative); Occult Blood Urine UA NEGATIVE (Negative); Protein Urine UA TRACE (Negative); Specific Gravity Urine UA 1.015 (1.000-1.035); WBC Urine None Seen (0-5/HPF); pH Urine UA 5.5 (4.5-8.0)
[2019-04-19 06:41] LABS: Color Urine UA Amber
[2019-04-19 06:47] LABS: Ictotest Urine Positive (Negative); RBC Urine 1-5/HPF (0-5/HPF)
[2019-04-19 06:48] LABS: Culture Indicated Urine Cult Not Indicated; Mucus Urine 1+ (Negative)
[2019-04-19 06:51] LABS: UR Morphine/Opiate cutoff 300 Positive (Negative); Ur Creatinine Normal (Normal); Ur Specific Gravity Normal (Normal); Urine Cocaine Negative (Negative); Urine Tetrahydrocannabinol Negative (Negative); Urine pH Normal (Normal)
[2019-04-19 06:52] LABS: Urine Amphetamines Negative (Negative); Urine Barbiturates Negative (Negative); Urine Benzodiazepines Negative (Negative); Urine MDMA Negative (Negative); Urine Methadone Negative (Negative); Urine Methamphetamines Negative (Negative); Urine Oxycodone Negative (Negative); Urine Phencyclidine Negative (Negative); Urine Tricyclic Antidepressant Negative (Negative)
--- NOTE | 2019-04-19 07:33 | PC.NURSE ---
Pt admitted to unit as Alert and oriented although he thought the year was 1989 but got the other neuro questions correct including who the president is. Pt is very reluctant to take his Lactulose. His sister bear had made a deal with him to take it for the next 2 days to see if he feels better and then he can decided on what to do, pt in agreeance. NS@12mL/hr. Complaints of pain all over 03/27, morphine given with relief. Legs with +2 pitting edema, elevated on pillows overnight. Pt's sister stated he hadn't voided since entering ER. Bladder scan showed 618mL; straight cath'ed and only 150mL of dark eileen urine came out. UA and Tox screen sent. OCHOA Alarcon informed of this. Bladder scanner showing possibly some ascites. No BM overnight.
[2019-04-19] MEDS: FOLIC ACID 1 MG TABLET PO (10:04)
[2019-04-19] MEDS: ENOXAPARIN 40 MG/0.4 ML SYRINGE SUBCUT (10:04)
[2019-04-19] MEDS: THIAMINE 100 MG TABLET PO (10:04)
--- NOTE | 2019-04-19 10:29 | PC.NURSE ---
Addendum entered by Shahrzad Shannon R.N. 04/19/19 14:52: +3 pitting edema to bilateral LE, abdomen distended with reports of pain. Dr. Childress made aware. Dr. Childress ordered: saline lock, lasix, albumin, blood cultures and nadolol. Dr. Childress now wants to hold the nadolol until pt assessment post-lasix. pt started having multiple loose BM's, incontinent, but able to verbalize immediately right before. Albumin and lasix adminsitered and cefazolin currently infusing. pt denying nausea. Original Note: AM shift pt AO and answering questions approprately. Speech is mumbled, but appropriate. Receptive to 0900 medications, including lactulose. Refusing breakfast (clears). Anterior right lungs are wheezing so I kept HOB elevated to assist with fluid dispersion. pt reporting pain in abdomen, but didn't ask for pain medications. Sister in room.
--- NOTE | 2019-04-19 12:34 | PM.PN.1 ---
Subjective Subjective Date Patient Seen: 04/19/19 Interval history: Edson Stone is a 64-year-old male with a past medical history significant for decompensated alcoholic liver cirrhosis with complication of hepatic encephalopathy and SBP, alcohol dependence, nicotine dependence, chronic back pain, and BPH who presented to the ED via EMS for confusion, weakness, and coarse breath sounds. Patient is lying in bed and lethargic. He is able to follow commands and answer questions appropriately. His hepatic encephalopathy is resolving. He has significant tenderness to palpation of abdomen on exam and will be treated for SBP. Obtained blood cultures x2 prior to initiation of antibiotics. He is voiding and eliminating without difficulty. Patient has been on bed rest and will up with assistance now that hepatic encephalopathy has resolved. Ordered PT and OT. Exam Vital Signs (past 8 hours): - 04/19/19 06:31 04/19/19 07:00 04/19/19 08:30 Temperature 98.3 F 97.4 F L Pulse Rate 92 H 94 H Respiratory Rate 19 18 Blood Pressure 113/55 L 100/63 Pulse Oximetry 94 94 94 Oxygen Delivery Method Room Air Oxygen Flow Rate 0 Narrative Exam Narrative: General: Older gentleman lying in bed and in no acute distress, appears older than stated age in chronically ill, dusky skin color, lethargic, withdrawn, able to answer questions appropriately and follow commands. HEENT: Normocephalic, atraumatic. External ears without defect. Pupils equal, round, and reactive to light. Anicteric sclerae, moist conjunctivae, and no lid lag. Oropharynx free of erythema and cobble stoning with moist mucosa. Neck: Supple with full range of motion. No jugular venous distension. No lymphadenopathy or thyromegaly. Cardiovascular: Regular rate and rhythm without murmurs, rubs, or gallops appreciated Pulmonary: Clear to auscultation bilaterally with bibasilar crackles and upper airway rhonchi. No wheezes. Normal respiratory effort without use of accessory muscles. Abdomen: Soft, positive fluid wave consistent with mild ascites, tympanic bowel sounds, moderate diffuse tenderness to palpation, nondistended. No hepatosplenomegaly or masses appreciated. Extremities: No clubbing, cyanosis, or edema. Skin: Normal temperature, turgor, and texture; no rash, ulcers, or subcutaneous nodules appreciated. Patient has stigmata of liver disease including palmar erythema, asterixis, spider angiomata and telangiectasias on face. No caput medusae. Neurological: Cranial nerves grossly intact. Objective Labs Result Diagrams: 04/19/19 05:19 04/19/19 05:19 Labs: Laboratory Results - last 24 hr 04/18/19 04/18/19 04/18/19 21:28 21:28 21:28 WBC 8.0 RBC 3.27 L Hgb 11.0 L Hct 33.2 L MCV 101.7 H MCH 33.7 MCHC 33.1 RDW 15.7 H Plt Count 141 L Neut % (Auto) 67.2 Lymph % (Auto) 19.4 L Turner % (Auto) 10.8 Eos % (Auto) 0.9 L Baso % (Auto) 1.7 Neut # (Auto) 5400 Lymph # (Auto) 1600 Turner # (Auto) 900 Eos # (Auto) 100 Baso # (Auto) 100 PT INR APTT Sodium 134 L Potassium 3.8 Chloride 105 Carbon Dioxide 22 BUN 9 Creatinine 0.60 L Estimated GFR > 60.0 BUN/Creatinine Ratio 15.0 Glucose 175 H Lactate Calcium 8.5 Phosphorus Magnesium Total Bilirubin Conjugated Bilirubin Unconjugated Bilirubin AST ALT Alkaline Phosphatase Ammonia 68.0 H Total Protein Albumin Globulin Albumin/Globulin Ratio Lipase Procalcitonin Urine Color Urine Appearance Urine pH Ur Specific [place] Urine Protein Urine Glucose (UA) Urine Ketones Urine Occult Blood Urine Nitrate Urine Bilirubin Urine Ictotest Urine Urobilinogen Ur Leukocyte Esterase Urine RBC Urine WBC Urine Bacteria Urine Mucus Ur Culture Indicated? Salicylates U Morph 300 ng/mL cutoff Ur Oxycodone Screen Urine Methadone Screen Acetaminophen < 10 L Ur Barbiturates Screen U Tricyclic Antidepress Ur Phencyclidine Scrn Ur Amphetamines Screen U Methamphetamines Scrn Ur MDMA Scrn (Ecstasy) U Benzodiazepines Scrn Urine Cocaine Screen U Marijuana (THC) Screen Ethyl Alcohol < 10 04/18/19 04/18/19 04/18/19 21:28 21:28 21:28 WBC RBC Hgb Hct MCV MCH MCHC RDW Plt Count Neut % (Auto) Lymph % (Auto) Turner % (Auto) Eos % (Auto) Baso % (Auto) Neut # (Auto) Lymph # (Auto) [place] # (Auto) Eos # (Auto) Baso # (Auto) PT 18.9 H INR 1.6 H APTT 40 H D Sodium Potassium Chloride Carbon Dioxide BUN Creatinine Estimated GFR BUN/Creatinine Ratio Glucose Lactate Calcium Phosphorus 1.8 L Magnesium 1.5 L Total Bilirubin 2.4 H Conjugated Bilirubin 0.0 Unconjugated Bilirubin 1.2 H AST 58 ALT 23 Alkaline Phosphatase 203 H Ammonia Total Protein 5.6 L Albumin 2.3 L Globulin 3.3 Albumin/Globulin Ratio 0.7 L Lipase 130 Procalcitonin 0.11 Urine Color Urine Appearance Urine pH Ur Specific [place] Urine Protein Urine Glucose (UA) Urine Ketones Urine Occult Blood Urine Nitrate Urine Bilirubin Urine Ictotest Urine Urobilinogen Ur Leukocyte Esterase Urine RBC Urine WBC Urine Bacteria Urine Mucus Ur Culture Indicated? Salicylates < 1.0 U Morph 300 ng/mL cutoff Ur Oxycodone Screen Urine Methadone Screen Acetaminophen Ur Barbiturates Screen U Tricyclic Antidepress Ur Phencyclidine Scrn Ur Amphetamines Screen U Methamphetamines Scrn Ur MDMA Scrn (Ecstasy) U Benzodiazepines Scrn Urine Cocaine Screen U Marijuana (THC) Screen Ethyl Alcohol 04/18/19 04/19/19 04/19/19 21:28 05:19 05:19 WBC 9.4 RBC 3.28 L Hgb 11.2 L Hct 33.2 L MCV 101.5 H MCH 34.1 H MCHC 33.6 RDW 15.6 H Plt Count 152 Neut % (Auto) 65.4 Lymph % (Auto) 18.9 L [place] % (Auto) 13.6 Eos % (Auto) 1.6 L Baso % (Auto) 0.5 Neut # (Auto) 6100 Lymph # (Auto) 1800 [place] # (Auto) 1300 H Eos # (Auto) 200 Baso # (Auto) 0 PT 18.0 H INR 1.6 H APTT Sodium Potassium Chloride Carbon Dioxide BUN Creatinine Estimated GFR BUN/Creatinine Ratio Glucose Lactate 1.9 Calcium Phosphorus Magnesium Total Bilirubin Conjugated Bilirubin Unconjugated Bilirubin AST ALT Alkaline Phosphatase Ammonia Total Protein Albumin Globulin Albumin/Globulin Ratio Lipase Procalcitonin Urine Color Urine Appearance Urine pH Ur Specific [place] Urine Protein Urine Glucose (UA) Urine Ketones Urine Occult Blood Urine Nitrate Urine Bilirubin Urine Ictotest Urine Urobilinogen Ur Leukocyte Esterase Urine RBC Urine WBC Urine Bacteria Urine Mucus Ur Culture Indicated? Salicylates U Morph 300 ng/mL cutoff Ur Oxycodone Screen Urine Methadone Screen Acetaminophen Ur Barbiturates Screen U Tricyclic Antidepress Ur Phencyclidine Scrn Ur Amphetamines Screen U Methamphetamines Scrn Ur MDMA Scrn (Ecstasy) U Benzodiazepines Scrn Urine Cocaine Screen U Marijuana (THC) Screen Ethyl Alcohol 04/19/19 04/19/19 04/19/19 05:19 06:15 06:25 WBC RBC Hgb Hct MCV MCH MCHC RDW Plt Count Neut % (Auto) Lymph % (Auto) [place] % (Auto) Eos % (Auto) Baso % (Auto) Neut # (Auto) Lymph # (Auto) [place] # (Auto) Eos # (Auto) Baso # (Auto) PT INR APTT Sodium 135 L Potassium 3.8 Chloride 108 H Carbon Dioxide 21 L BUN 8 L Creatinine 0.50 L Estimated GFR > 60.0 BUN/Creatinine Ratio 16.0 Glucose 106 Lactate Calcium 8.4 Phosphorus Magnesium Total Bilirubin 2.2 H Conjugated Bilirubin Unconjugated Bilirubin AST 62 H ALT 25 Alkaline Phosphatase 215 H Ammonia Total Protein 6.0 L Albumin 2.3 L Globulin 3.7 Albumin/Globulin Ratio 0.6 L Lipase Procalcitonin Urine Color [place] Urine Appearance Sl cloudy Urine pH 5.5 Ur Specific [place] 1.015 Urine Protein Trace H Urine Glucose (UA) Negative Urine Ketones Negative Urine Occult Blood Negative Urine Nitrate Negative Urine Bilirubin 1+ H Urine Ictotest Positive H Urine Urobilinogen 2.0 H Ur Leukocyte Esterase Negative Urine RBC 1-5/hpf Urine WBC None seen Urine Bacteria None seen Urine Mucus 1+ H Ur Culture Indicated? Cult not indicated Salicylates U Morph 300 ng/mL cutoff Positive H Ur Oxycodone Screen Negative Urine Methadone Screen Negative Acetaminophen Ur Barbiturates Screen Negative U Tricyclic Antidepress Negative Ur Phencyclidine Scrn Negative Ur Amphetamines Screen Negative U Methamphetamines Scrn Negative Ur MDMA Scrn (Ecstasy) Negative U Benzodiazepines Scrn Negative Urine Cocaine Screen Negative U Marijuana (THC) Screen Negative Ethyl Alcohol Assessment & Plan Assessment & Plan narrative: Edson Stone is a 64-year-old male with a past medical history significant for decompensated alcoholic liver cirrhosis with complication of hepatic encephalopathy and SBP, alcohol dependence, nicotine dependence, chronic back pain, and BPH who presented to the ED via EMS for confusion, weakness, and coarse breath sounds. 1. Acute decompensated alcoholic liver cirrhosis with hepatic encephalopathy and SBP, present on admission. Active. -Patient presented with hepatic encephalopathy, mild 3rd spacing with ascites and peripheral edema and mild abdominal pain -Liver function impaired with INR 1.6 and albumin 2.3. Platelets low normal at 152. MELD 17. Child Alves Class C. -Previous CT abdomen and pelvis with contrast in 03/2019 demonstrated cirrhosis and early portal hypertension. -Ordered furosemide 10 mg IV x1 with albumin 25 g IV x1 to help mobilize fluid from 3rd spacing. Plan to place patient on 2:1 spironolactone to furosemide prior to discharge if blood pressure permits. -Continue lactulose 30 g 4 times daily until having 2-3 BMs per day. Started and will continue rifaximin 550 mg twice daily. -Started nadolol 20 mg daily to help with portal hypertension. -Alcohol level negative. Patient has reportedly not been drinking alcohol since day after discharge approximately 10 days ago. -Continue strict I&O and daily weights with diuresis. Net +1.2 L. -Continue low-sodium diet less than 2 g daily and fluid restriction of 1.5 L. -Continue to monitor electrolytes closely and replete as necessary. -Ordered diagnostic ultrasound-guided paracentesis which is unable to be performed on the weekends unless emergent. -Recommended outpatient referral to hepatology for further evaluation and treatment. 2. Acute spontaneous bacterial peritonitis, present on admission. Active. -Patient has mild ascites with significant tenderness to palpation of abdomen and hepatic encephalopathy which is indicative of SBP. -Received IV fluid in ED and on admission for unclear reason? Discontinued IV fluids as patient is clearly 3rd spacing and diuresed as above which improved blood pressure. -Ordered diagnostic paracentesis but unable to be performed on the weekends unless emergent. -Ordered blood cultures x2 prior to starting antibiotics. -Started and continue ceftriaxone 2 g IV daily x5 days. 3. Acute hepatic encephalopathy, present on admission. Resolving. -Initial ammonia level 68 which is higher than on previous admission. -Continue lactulose 30 g 4 times daily or until having 2-3 bowel movements per day. If his hepatic encephalopathy is not improving or worsens will need to administer lactulose rectally. During his last admission, he declined to take it, family members are present to attempt to persuade him to take it. Started and will continue rifaximin 550 mg twice daily. -Family is considering hospice but would like for the patient's mentation to clear and communicate his desires prior placing on hospice. 4. Acute hypomagnesemia, present on admission. Active. -Initial magnesium level 1.5. Ordered magnesium chloride 128 mg x1. -Continue to monitor magnesium level closely and replete as necessary. 5. Acute on chronic severe protein calorie malnutrition, present on admission -Encourage PO intake of food. Continue low-sodium diet less than 2 g daily and fluid restriction of 1.5 L. -Continue aspiration precautions due to his lethargy. 6. Chronic alcohol dependence, present on admission. -Alcohol level negative. Patient has reportedly not been drinking alcohol since day after discharge approximately 10 days ago. -Continue home thiamine 100 mg daily and folic acid 1 mg daily. -Continue to monitor for alcohol withdrawal. Low threshold to start CIWA protocol. 7. Tobacco dependence, chronic, present on admission. Stable. -Patient smokes 3 packs per day. -Continue nicotine patch as needed for nicotine withdrawal. 8. Benign prostatic hypertrophy, chronic, present on admission. Stable. -Continue tamsulosin 0.4 mg daily at bedtime. 9. History of hypercalcemia secondary to hyperparathyroidism. -Patient was previously referred for outpatient surgical evaluation but it is unclear if this has been pursued. Once his mentation improves, if he wishes to proceed with surgical evaluation he can be referred by his PCP [facility] the [place]. Disposition: Patient remains inpatient but will likely discharge home possibly with hospice once hepatic encephalopathy and spontaneous bacterial peritonitis have been adequately treated. Quality VTE Deep Vein Thrombosis/Pulmonary Embolism Present on Admission: No
[2019-04-19] MEDS: FUROSEMIDE 20 MG/2 ML VIAL 10 MG IV (13:19)
[2019-04-19] MEDS: ALBUMIN HUMAN 25 GM/100 ML VIAL IV (13:35)
[2019-04-19] MEDS: LACTULOSE 20 GM/30 ML SOLUTION 30 GM PO ×3 (14:19→20:40)
[2019-04-19] MEDS: RIFAXIMIN 550 MG TABLET PO ×2 (14:20→20:41)
[2019-04-19] MEDS: CEFTRIAXONE 2 GM/50 ML FROZ.PIGGY IV (14:44)
[2019-04-19] MEDS: TAMSULOSIN 0.4 MG CAPSULE PO (20:41)
[2019-04-19] MEDS: SODIUM CHLORIDE 0.9% FLUSH 10 ML IV (23:41)
[2019-04-20] VITALS (7 sets, daily range): BP systolic 98–130; BP diastolic 61–86; PULSE 80–96; RESP 16–18; TEMP 36.1–36.7; O2SAT 97–100
--- NOTE | 2019-04-20 00:01 | PC.NURSE ---
Addendum entered by Pastora Haynes R.N. 04/20/19 05:36: Patient still complaining of pain and states earlier pain not ever relieved. OCHOA Alarcon, contacted and order received for another dose of Oxycodone 2.5mg and she will discuss with mau hospitalist. Addendum entered by Pastora Haynes R.N. 04/20/19 05:32: Uncertain if patient has voided tonight as has had liquid stool x 2. Patient does not know if he has voided. Bladder scan showing > 353cc in bladder; order is to cath if > 450cc so will allow more time to urinate. Addendum entered by Pastora Haynes R.N. 04/20/19 00:37: Medicated with Oxycodone for pain. Addendum entered by Pastora Haynes R.N. 04/20/19 00:05: Complains of 8/10 generalized pain so OCHOA Alarcon, informed and will come to see him as has no pain medications ordered. Original Note: Patient is oriented except to day of week, reason he is in hospital and year. Breath sounds with inspiratory/expiratory rhonchi throughout but RA sat is 97%; does state he is SOB with exertion. HRR and was SR on telemetry. Denies nausea; receiving scheduled Zofran. BT present; abdomen is distended due to ascites but non tender. Incontinent of B&B with increased frequency of stools related to Lactulose. Is able to assist in repositioning. Bruise to right elbow and has bandaid to left knee which is CDI. Reports frequent falls at home so fall risk score is high and bed alarm is activated. Sister rooming in.
[2019-04-20] MEDS: OXYCODONE IR 5 MG TABLET 2.5 MG PO ×3 (00:36→18:04)
[2019-04-20 05:40] LABS: Add Manual Diff / Slide Review NO; Basophils Absolute Auto 100 /uL (0-100); Basophils Percent Auto 1.2 % (0-2); Eosinophils Absolute Auto 100 /uL (0-450); Eosinophils Percent Auto 1.3 % (2-4); Hematocrit 33.3 % (41-53); Hemoglobin 11.2 g/dL (13.5-17.5); Lymphocytes Absolute Auto 1200 /uL (1100-4500); Lymphocytes Percent Auto 16.9 % (25-40); Mean Corpuscular HGB Conc 33.5 % (30-36); Mean Corpuscular Hemoglobin 33.7 PG (26-34); Mean Corpuscular Volume 100.7 fL (80-100); Monocytes Absolute Auto 900 /uL (0-900); Monocytes Percent Auto 12.6 % (3-14); Neutrophils Absolute Auto 4900 /uL (1500-7000); Platelet Count 120 X10^3/uL (150-400); Red Blood Cell Count 3.31 X10^6/uL (4.5-5.9); Red Cell Distribution Width 15.4 % (11.6-14.8); White Blood Cell Count 7.3 X10^3/uL (4.5-11.0)
[2019-04-20 05:55] LABS: INR 1.7 (0.9-1.3); Prothrombin Time 19.2 SECONDS (10.1-12.7)
[2019-04-20 05:58] LABS: Alanine Aminotransferase 23 IU/L (<50); Albumin 2.5 g/dL (3.5-5.0); Albumin Globulin Ratio 0.8 (1.0-2.8); Alkaline Phosphatase 201 U/L (38-126); Aspartate Aminotransferase 55 IU/L (17-59); BUN Creatinine Ratio 11.7 (6-22); Bilirubin Total 2.4 mg/dL (0.2-1.3); Blood Urea Nitrogen 7 mg/dL (9-20); Calcium 8.8 mg/dL (8.4-10.2); Carbon Dioxide 24 mmol/L (22-32); Chloride 110 mmol/L (98-107); Estimated Glomerular Filt Rate > 60.0 mL/min (>60); Globulin 3.3 g/dL (1.7-4.1); Glucose 111 mg/dL (80-110); HEMOLYSIS < 15 (0-50); Magnesium 1.6 mg/dL (1.6-2.3); Sodium 139 mmol/L (137-145); Total Protein 5.8 g/dL (6.3-8.2)
[2019-04-20] MEDS: ONDANSETRON 4 MG/2 ML INJ IV (06:07)
[2019-04-20] MEDS: SODIUM CHLORIDE 0.9% FLUSH 10 ML IV ×4 (06:07→20:33)
--- NOTE | 2019-04-20 06:53 | PM.EVENT ---
Event Note Event Note: Patient had pain over the evening and required 2 doses of oxycodone 2.5 to control his pain.
--- NOTE | 2019-04-20 09:00 | P.PN_ITS ---
Subjective Subjective Date Patient Seen: 04/20/19 Interval history: Edson Stone is a 64-year-old male with a past medical history significant for decompensated alcoholic liver cirrhosis with complication of hepatic encephalopathy and SBP, alcohol dependence, nicotine dependence, chronic back pain, and BPH who presented to the ED via EMS for confusion, weakness, and coarse breath sounds. Patient is resting comfortably in bed. He is much more awake, alert, and interactive. Discussed cirrhosis and complications associated in detail. His abdominal tenderness has improved. He endorses diarrhea and his dislike of lactulose due to it causing diarrhea. However, he understands the necessity of lactulose once hepatic encephalopathy was explained. Plan to continue to apply barrier cream to help protect his skin against breakdown from diarrhea. He has no other complaints and denies headache, chest pain, shortness of breath, nausea, vomiting, fever, chills, or dysuria. He is voiding and eliminating without difficulty. Plan to get patient up with physical therapy today. Exam Vital Signs (past 8 hours): - 04/20/19 04:40 Temperature 97.0 F L Pulse Rate 96 H Respiratory Rate 16 Blood Pressure 98/68 Pulse Oximetry 98 Oxygen Delivery Method Room Air Oxygen Flow Rate 0 Narrative Exam Narrative: General: Older gentleman lying in bed and in no acute distress, appears older than stated age in chronically ill, dusky skin color, awake, alert, more conversant. HEENT: Normocephalic, atraumatic. External ears without defect. Pupils equal, round, and reactive to light. Anicteric sclerae, moist conjunctivae, and no lid lag. Oropharynx free of erythema and cobble stoning with moist mucosa. Neck: Supple with full range of motion. No jugular venous distension. No lymphadenopathy or thyromegaly. Cardiovascular: Regular rate and rhythm without murmurs, rubs, or gallops appre ciated Pulmonary: Clear to auscultation bilaterally with bibasilar crackles and upper airway rhonchi. No wheezes. Normal respiratory effort without use of accessory muscles. Abdomen: Soft, positive fluid wave consistent with mild ascites, tympanic bowel sounds, mild diffuse tenderness to palpation, nondistended. No hepatosplenomegaly or masses appreciated. Extremities: No clubbing, cyanosis, or edema. Skin: Normal temperature, turgor, and texture; no rash, ulcers, or subcutaneous nodules appreciated. Patient has stigmata of liver disease including palmar erythema, asterixis, spider angiomata and telangiectasias on face. No caput medusae. Neurological: Cranial nerves grossly intact. Objective Labs Result Diagrams: 04/20/19 05:15 04/20/19 05:15 Labs: Laboratory Results - last 24 hr 04/20/19 04/20/19 04/20/19 05:15 05:15 05:15 WBC 7.3 RBC 3.31 L Hgb 11.2 L Hct 33.3 L MCV 100.7 H MCH 33.7 MCHC 33.5 RDW 15.4 H Plt Count 120 L Neut % (Auto) 68.0 Lymph % (Auto) 16.9 L [place] % (Auto) 12.6 Eos % (Auto) 1.3 L Baso % (Auto) 1.2 Neut # (Auto) 4900 Lymph # (Auto) 1200 [place] # (Auto) 900 Eos # (Auto) 100 Baso # (Auto) 100 PT 19.2 H INR 1.7 H Sodium Potassium Chloride Carbon Dioxide BUN Creatinine Estimated GFR BUN/Creatinine Ratio Glucose Calcium Magnesium Total Bilirubin AST ALT Alkaline Phosphatase Total Protein Albumin Globulin Albumin/Globulin Ratio Procalcitonin 0.10 04/20/19 05:15 WBC RBC Hgb Hct MCV MCH MCHC RDW Plt Count Neut % (Auto) Lymph % (Auto) [place] % (Auto) Eos % (Auto) Baso % (Auto) Neut # (Auto) Lymph # (Auto) [place] # (Auto) Eos # (Auto) Baso # (Auto) PT INR Sodium 139 Potassium 3.0 L Chloride 110 H Carbon Dioxide 24 BUN 7 L Creatinine 0.60 L Estimated GFR > 60.0 BUN/Creatinine Ratio 11.7 Glucose 111 H Calcium 8.8 Magnesium 1.6 Total Bilirubin 2.4 H AST 55 ALT 23 Alkaline Phosphatase 201 H Total Protein 5.8 L Albumin 2.5 L Globulin 3.3 Albumin/Globulin Ratio 0.8 L Procalcitonin Assessment & Plan Assessment & Plan narrative: Edson Stone is a 64-year-old male with a past medical history significant for decompensated alcoholic liver cirrhosis with complication of hepatic encephalopathy and SBP, alcohol dependence, nicotine dependence, chronic back pain, and BPH who presented to the ED via EMS for confusion, weakness, and coarse breath sounds. 1. Acute decompensated alcoholic liver cirrhosis with hepatic encephalopathy and SBP, present on admission. Active. -Patient presented with hepatic encephalopathy, mild 3rd spacing with ascites and peripheral edema and mild abdominal pain -Liver function impaired with INR 1.6 and albumin 2.3. Platelets low normal at 152. MELD 17 down to 16. Child Alves Class C. -Previous CT abdomen and pelvis with contrast in 03/2019 demonstrated cirrhosis and early portal hypertension. -Alcohol level negative. Patient has reportedly not been drinking alcohol since day after discharge approximately 10 days ago. -Continue strict I&O and daily weights with diuresis. Net +2 L. -Continue low-sodium diet less than 2 g daily and fluid restriction of 1.5 L. -Continue to monitor electrolytes closely and replete as necessary. -Started 2:1 spironolactone to furosemide for diuresis and treat ascites/3rd spacing. Received spironolactone 25 mg and furosemide 10 mg today as it was unclear if patient's blood pressure would allow standard dose of 100/40. Blood pressure has improved with diuresis. Plan to start spironolactone 100 mg daily and furosemide 40 mg daily tomorrow. -Continue lactulose 30 g 3 times daily until having 2-3 BMs per day. Continue rifaximin 550 mg twice daily. -Continue nadolol 20 mg daily to treat portal hypertension. -Recommended outpatient referral to hepatology for further evaluation and treatment. 2. Acute spontaneous bacterial peritonitis, present on admission. Active. -Patient has mild ascites with significant tenderness to palpation of abdomen and hepatic encephalopathy which is indicative of SBP. -Received IV fluid in ED and on admission for unclear reason? Discontinued IV fluids as patient is clearly 3rd spacing and diuresed as above which improved blood pressure. -Ordered diagnostic paracentesis but unable to be performed on the weekends unless emergent. -Blood cultures x2 have no growth to date. -Continue ceftriaxone 2 g IV daily and continue antibiotic treatment for 5 days total. 3. Acute hepatic encephalopathy, present on admission. Resolving. -Initial ammonia level 68 which is higher than on previous admission. -Continue lactulose 30 g 4 times daily or until having 2-3 bowel movements per day. If his hepatic encephalopathy is not improving or worsens will need to administer lactulose rectally. During his last admission, he declined to take it, family members are present to attempt to persuade him to take it. Started and will continue rifaximin 550 mg twice daily. -Family is considering hospice but would like for the patient's mentation to clear and communicate his desires prior to placing on hospice. 4. Acute hypomagnesemia, present on admission. Active. -Initial magnesium level 1.5. -Continue magnesium chloride 128 mg daily. -Continue to monitor magnesium level closely and replete as necessary. 5. Acute on chronic severe protein calorie malnutrition, present on admission -Encourage PO intake of food. Continue low-sodium diet less than 2 g daily and fluid restriction of 1.5 L. -Continue aspiration precautions due to his lethargy. 6. Chronic alcohol dependence, present on admission. -Alcohol level negative. Patient has reportedly not been drinking alcohol since day after discharge approximately 10 days ago. -Continue home thiamine 100 mg daily and folic acid 1 mg daily. -Continue to monitor for alcohol withdrawal. Low threshold to start CIWA protocol. 7. Tobacco dependence, chronic, present on admission. Stable. -Patient smokes 3 packs per day. -Continue nicotine patch as needed for nicotine withdrawal. 8. Benign prostatic hypertrophy, chronic, present on admission. Stable. -Continue tamsulosin 0.4 mg daily at bedtime. 9. History of hypercalcemia secondary to hyperparathyroidism. -Patient was previously referred for outpatient surgical evaluation but it is unclear if this has been pursued. Once his mentation improves, if he wishes to proceed with surgical evaluation he can be referred by his PCP at the [place]. Disposition: Patient likely discharge SNF for rehab vs. home with home health vs home with hospice in the next several days once diuretics have been optimized and spontaneous bacterial peritonitis has been adequately treated. Quality VTE Deep Vein Thrombosis/Pulmonary Embolism Present on Admission: No
[2019-04-20] MEDS: FOLIC ACID 1 MG TABLET PO (09:31)
[2019-04-20] MEDS: NICOTINE 21 MG PATCH TOP (09:32)
[2019-04-20] MEDS: FUROSEMIDE 20 MG TABLET 10 MG PO (09:32)
[2019-04-20] MEDS: RIFAXIMIN 550 MG TABLET PO ×2 (09:33→20:25)
[2019-04-20] MEDS: THIAMINE 100 MG TABLET PO (09:33)
[2019-04-20] MEDS: SPIRONOLACTONE 25 MG TABLET PO (09:33)
[2019-04-20] MEDS: ENOXAPARIN 40 MG/0.4 ML SYRINGE SUBCUT (09:34)
[2019-04-20] MEDS: MAGNESIUM CHLORIDE 64 MG TABLET 128 MG PO (09:36)
[2019-04-20] MEDS: NADOLOL 40 MG TABLET 20 MG PO (09:37)
[2019-04-20] MEDS: LACTULOSE 20 GM/30 ML SOLUTION 30 GM PO ×2 (09:42→20:27)
[2019-04-20] MEDS: SODIUM CHLORIDE 0.9% 250 ML 21 ML IV (13:06)
[2019-04-20] MEDS: CEFTRIAXONE 2 GM/50 ML FROZ.PIGGY IV (13:06)
--- NOTE | 2019-04-20 13:24 | PC.NURSE ---
Day Shift- Pt oriented to name, states JANET April,, [facility], when asked why pt was at the hospital, pt states I was on a gurney brought in for pain. States has chronic back pain. 01/25 aching requesting pain meds. PRN meds given at 0607 by night RN. No prn's available at this time. FLACC score is 3. PIV to left wrist infiltrated. Another RN attempted to place PIV X2. ED RN consulted to place PIV into right wrist for IV antibiotics. Pt remains on 1.5L fluid restriction without issue. Spent 55 mins this AM with pt from [id number] for assessment and medication administration. Pt initially refused Scheduled Lactulose, Explained importance of risks and benefits. Pt agreeable and explained to pt that staff would hold the lactulose if he has 2-3 BM's/day per Dr. Childress order.
--- NOTE | 2019-04-20 15:58 | PT.IIE ---
Current Diagnoses Metabolic encephalopathy (04/19/19) Surgical History (Last Reviewed 03/30/19 @ 22:39 by OCHOA Rodriguez) Surgical history unknown (Acute) Medical History (Last Reviewed 04/19/19 @ 00:24 by Antonio Webb DO) Alcohol abuse (Acute) Back pain (Inactive) Cirrhosis (Acute) Encephalopathy, hepatic (Acute) Pancreatitis (Inactive) Physical Therapy Inpatient Evaluation/Re-Eval M1 PT/OT-IP Prior Functional Status Start: 04/20/19 08:16 Freq: NEEDED Status: Active Protocol: Document 04/20/19 15:25 AW (Rec: 04/20/19 15:58 AW [id number]) Medical Review Prior Functional Status Medical History Reviewed Yes Communication Able to make needs known, though pt presents as confused . Mobility and Gait Pt has used a 4WW for all mobility over the past 1.5 years. He reports being limited to 15 feet distance. Activities of Daily Living and IADL's Pt states he wears clothes that are easy to put on/take off, but is independent with dressing. He notes he has not showered regularly in months. He is toileting independently. Friends and/or his sisters help him with grocery delivery . Prior Functional Level (Other details) Pt states he falls regularly. The last fall he recalls occured about two weeks ago. He states falls are as likely to happen with his walker as without. Social History Household Members none Living Arrangements House Number of Floors (Floors) Two Floors Number of Stairs To Enter/Railing? 30 CARL with railing on the right side (ascending). Pt notes that he is able to live on the main level without need to use stairs inside. Home Environment Standard Height Toilet Home Equipment Four Wheel Walker,Straight Cane,Crutches,Shower Seat with Backrest Additional Social History Comment Pt has sisters who live in [place] and in [place]. M2 PT-IP Current Condition Start: 04/20/19 08:16 Freq: NEEDED Status: Active Protocol: Document 04/20/19 15:25 AW (Rec: 04/20/19 15:58 AW [id number]) Physical Therapy Current Condition Current Condition Evaluation Date 04/20/19 Treatment Diagnosis acute hepatic encephalopathy, difficulty in walking Onset Date 06/19/18 Weight Bearing Status Weight Bearing Status Full Weight Bearing M3 PT-IP Subjective Start: 04/20/19 08:16 Freq: NEEDED Status: Active Protocol: Document 04/20/19 15:25 AW (Rec: 04/20/19 15:58 AW [id number]) Subjective Physical Therapy Visit Type Type Initial Evaluation Visit Start Time 14:42 Visit Stop Time 15:20 Total Visit Minutes 38 Physical Therapy Visit Comments Patient Comments Pt is very tired but willing to work with therapy Patient Goals Pt hopes to return home at discharge Therapy Pain Assessment Pain When Pain Assessed At Rest Pain Present Pain Present Denied Pain M4 PT-IP Mobility and Gait Start: 04/20/19 08:16 Freq: NEEDED Status: Active Protocol: Document 04/20/19 15:25 AW (Rec: 04/20/19 15:58 AW [id number]) PT-Bed Mobility Assessment Rolling Type of Rolling Roll to Left Level of Assist Standby Assistance Supine to Sit Supine to Sit Minimal Assistance Sit to Supine Sit to Supine Contact Guard Assistance Scooting Scooting to Edge of Bed Contact Guard Assistance Scooting Up and Down in Bed Standby Assistance PT-Transfer Assessment Sit to and From Stand Sit to and from Stand Minimal Assistance,1 Person Assistance,Use of Upper Extremities Equipment Transfer Assistive Device Gait Belt,Front Wheeled Walker Orthotic/Prosthetic Devices or Brace: No Transfers Transfer Destination Bed,Toilet Transfer Technique pt ambulated with FWW Transfer Ability Level of Assist Contact Guard Assistance, Minimal Assistance Comments Mobility Comments Pt required min assist for supine to sit transfer with HOB flat. Pt was able to swing his legs out of bed but required LAND INSPECTOR/min assist to sit upright. Sit to stand from bed required CGA; sit to stand from toilet required min assist and use of grab bar. Upon return to bed, pt was able to scoot toward HOB CGA. Gait Assessment Gait Gait Assistance Required: Contact Guard Assist,Minimum Assistance Distance (Feet) 15 Able to Maintain Weight Bearing Status Yes During Gait Assistive Devices Assistive Device Gait Belt,Front Wheeled Walker Orthotic/Prosthetic Devices or Brace: No Gait Deviations General Gait Pattern Antalgic,Decreased Stride Length,Decreased Feet Clearance,Flexed Trunk,Step-to Gait Factors Limiting Gait Function Factors Limiting Gait Function Decreased Activity Tolerance, Decreased Sensation,Decreased Strength,Pain,Poor Balance, Poor Safety Awareness Comments Gait Comments Pt required CGA to min assist for gait with FWW. Pt ambulated 15 feet x 2, requiring assist due to unsteady gait and lateral loss of balance x 2. Stair Climbing Assessment Comments Stair Climbing Comments Not assessed PT-Balance Assessment Sitting Balance and Reactions Static Sitting Balance Ability Good Dynamic Sitting Balance Ability Good Standing Balance and Reactions Static Standing Balance Ability Fair Dynamic Standing Balance Ability Fair Device Used FWW M5 PT-IP Objective Assessments Start: 04/20/19 08:16 Freq: NEEDED Status: Active Protocol: Document 04/20/19 15:25 AW (Rec: 04/20/19 15:58 AW [id number]) Orientation Orientation/Cognition Level of Alertness Confusional State Orientation Name,Year,Place,Situation Language Function Ability No Deficits Noted Safety Awareness Decreased Safety Awareness Memory Description Short Term Impaired Gross Range of Motion Upper Extremity ROM Assessment Within Functional Limits Lower Extremity ROM Assessment Bilaterally Impaired Strength Upper Extremity Strength Assessment Within Functional Limits Lower Extremity Strength Assessment Bilaterally Impaired Hip 3+/5 Knee 4/5 Ankle 4/5 Coordination Assessment Gross Coordination Gross Coordination Impaired Assessment Finger to Nose Test Minimal Impairment Pronation/Supination Test Minimal Impairment Coordination Comments Signs of dysmetria on finger to nose testing (R more affected than L) with missed target <5 cm. Pt was able to perform pronation/supination but slowly. Sensation Assessment Sensation Gross Sensation Right LE Impaired,Left LE Impaired Light Touch Impaired Comments Sensation Comments Pt with impaired light touch sensation bilateral plantar feet. Dorsal feet less affected but pt does endorse dull sensation. M6 PT-IP Treatment Start: 04/20/19 08:16 Freq: NEEDED Status: Active Protocol: Document 04/20/19 15:25 AW (Rec: 04/20/19 15:58 AW [id number]) Physical Therapy Treatment Education Education Provided Precautions,Safety Other Treatments Other Treatment Performed Discussed need for assistive device, physical assist with all mobility. Pt left with bed alarm armed, call light and table within reach. M7 PT-IP Assessment and Plan Start: 04/20/19 08:16 Freq: NEEDED Status: Active Protocol: Document 04/20/19 15:25 AW (Rec: 04/20/19 15:58 AW [id number]) PT Summary Assessment and Plan Potential Rehabilitation Potential Good Status of Condition at Evaluation Evolving Summary Impairments Strength,Balance,Coordination, Sensation,Cognition,Bed Mobility,Transfers,Gait, Activity Tolerance Assessment Summary Pt is a 64 yo man admitted with acute hepatic encephalopathy. PLOF: Pt states he was limited to 15 feet ambulation with 4WW for the past 1.5 years. CLOF: Pt requiring CGA to min assist for all mobility due to decreased safety awareness, poor balance, decreased strength, and cognitive status . Pt will likely require 24/7 assist for all mobility at discharge and would benefit from SNF rehab if willing to participate. Goals Bed Mobility Goal Standby Assistance Transfer Goal Standby Assistance,Front Wheeled Walker Gait Goal Standby Assistance,Front Wheel Walker Gait Distance 50 Other Goals up/down 30 stairs with R railing (ascending) CGA Days to Meet Goals 10 Frequency of Treatment Frequency Of Treatment Once a Day Treatment Plan Physical Therapy Treatment Plan Bed Mobility Training,Transfer Training,Gait Training, Therapeutic Exercise,Balance Retraining,Discharge Planning, Hot or Cold Pack,Neuromuscular Re-ed,Coordination Retraining ,Manual Therapy Other Recommendations and Next Treatment bed mobility, assess stairs, Focus progress gait distance if able Recommendations To Nursing Amount of Assist Needed 1 Person Assist Discharge Recommendations PT Discharge Recommendations SNF Rehab
[2019-04-20] MEDS: POTASSIUM CHLORIDE 20 MEQ TAB 40 MEQ PO (18:03)
--- NOTE | 2019-04-20 19:13 | PC.NURSE ---
Pt knows where he is and why, who is visitors are, his name, , month, year. He is drinking cranberry juice and water, 1/2 piece of toast, 1/2 cup cottage cheese and all of his fresh fruit. + BTs + gas, and continent of B/B so far this shift. Pt is able to make his needs known.
[2019-04-20] MEDS: TAMSULOSIN 0.4 MG CAPSULE PO (20:25)
[2019-04-21] VITALS (13 sets, daily range): BP systolic 103–116; BP diastolic 61–77; PULSE 74–97; RESP 16–20; TEMP 35.7–36.8; O2SAT 95–100
[2019-04-21 05:53] LABS: Add Manual Diff / Slide Review NO; Basophils Absolute Auto 100 /uL (0-100); Basophils Percent Auto 0.9 % (0-2); Eosinophils Absolute Auto 100 /uL (0-450); Eosinophils Percent Auto 1.4 % (2-4); Hematocrit 33.6 % (41-53); Hemoglobin 11.2 g/dL (13.5-17.5); Lymphocytes Absolute Auto 1100 /uL (1100-4500); Lymphocytes Percent Auto 18.7 % (25-40); Mean Corpuscular HGB Conc 33.3 % (30-36); Mean Corpuscular Hemoglobin 33.6 PG (26-34); Monocytes Absolute Auto 800 /uL (0-900); Monocytes Percent Auto 13.6 % (3-14); Neutrophils Absolute Auto 3800 /uL (1500-7000); Neutrophils Percent Auto 65.4 % (50-75); Platelet Count 106 X10^3/uL (150-400); Red Blood Cell Count 3.33 X10^6/uL (4.5-5.9); Red Cell Distribution Width 15.4 % (11.6-14.8); White Blood Cell Count 5.9 X10^3/uL (4.5-11.0)
[2019-04-21 05:54] LABS: INR 1.7 (0.9-1.3); Prothrombin Time 19.3 SECONDS (10.1-12.7)
[2019-04-21 05:59] LABS: Alanine Aminotransferase 21 IU/L (<50); Albumin 2.3 g/dL (3.5-5.0); Albumin Globulin Ratio 0.7 (1.0-2.8); Alkaline Phosphatase 195 U/L (38-126); Aspartate Aminotransferase 45 IU/L (17-59); BUN Creatinine Ratio 11.7 (6-22); Bilirubin Total 1.7 mg/dL (0.2-1.3); Blood Urea Nitrogen 7 mg/dL (9-20); Calcium 8.8 mg/dL (8.4-10.2); Carbon Dioxide 23 mmol/L (22-32); Chloride 109 mmol/L (98-107); Estimated Glomerular Filt Rate > 60.0 mL/min (>60); Globulin 3.4 g/dL (1.7-4.1); Glucose 102 mg/dL (80-110); HEMOLYSIS < 15 (0-50); Magnesium 1.6 mg/dL (1.6-2.3); Potassium 3.3 mmol/L (3.4-5.1); Sodium 138 mmol/L (137-145); Total Protein 5.7 g/dL (6.3-8.2)
[2019-04-21] MEDS: FOLIC ACID 1 MG TABLET PO (09:36)
[2019-04-21] MEDS: SPIRONOLACTONE 25 MG TABLET 100 MG PO (09:37)
[2019-04-21] MEDS: THIAMINE 100 MG TABLET PO (09:37)
[2019-04-21] MEDS: FUROSEMIDE 20 MG TABLET 40 MG PO (09:38)
[2019-04-21] MEDS: RIFAXIMIN 550 MG TABLET PO ×2 (09:38→20:48)
[2019-04-21] MEDS: NICOTINE 21 MG PATCH TOP (09:39)
[2019-04-21] MEDS: LACTULOSE 20 GM/30 ML SOLUTION 30 GM PO ×2 (09:39→21:15)
[2019-04-21] MEDS: POTASSIUM CHLORIDE 20 MEQ TAB 40 MEQ PO ×2 (09:39→17:04)
[2019-04-21] MEDS: MAGNESIUM CHLORIDE 64 MG TABLET 128 MG PO (09:40)
[2019-04-21] MEDS: NADOLOL 40 MG TABLET 20 MG PO (09:40)
[2019-04-21] MEDS: SODIUM CHLORIDE 0.9% FLUSH 10 ML IV ×3 (09:42→23:15)
--- NOTE | 2019-04-21 10:20 | OT.IP.EVAL ---
Current Diagnoses Metabolic encephalopathy (04/19/19) Past Medical History (Last Reviewed 04/19/19 @ 00:24 by Antonio Webb DO) Alcohol abuse (Acute) Back pain (Inactive) Cirrhosis (Acute) Encephalopathy, hepatic (Acute) Pancreatitis (Inactive) Surgical History (Last Reviewed 03/30/19 @ 22:39 by OCHOA Rodriguez) Surgical history unknown (Acute) Occupational Therapy Inpatient Evaluation/Re-Eval M1 PT/OT-IP Prior Functional Status Start: 04/21/19 12:21 Freq: NEEDED Status: Active Protocol: Document 04/21/19 10:20 [facility] (Rec: 04/21/19 14:23 [facility] [id number]) Medical Review Prior Functional Status Medical History Reviewed Yes Communication Able to make needs known, though pt presents as confused . Mobility and Gait Pt has used a 4WW for all mobility over the past 1.5 years. He reports being limited to 15 feet distance. Activities of Daily Living and IADL's Pt states he wears clothes that are easy to put on/take off, but is independent with dressing. He notes he has not showered regularly in months. He is toileting independently. Friends and/or his sisters help him with grocery delivery . During OT eval, pt's sister states pt has been malnourished and does get Meals on Wheels, does not remember to take his medications even though has a pill organizer, and per pt has not showered in months. pt states car broken down and has not driven. Per pt's sister she and other family members has sepnt the last 2-3 weeks cleaning his house. Prior Functional Level (Other details) Pt states he falls regularly. The last fall he recalls occured about two weeks ago. He states falls are as likely to happen with his walker as without. Social History Household Members none Living Arrangements House Number of Floors (Floors) Two Floors Number of Stairs To Enter/Railing? Clarified with pt's sister, pt have 10-12ft concrete side walk after steep driveway. 2 steps with right post to get into the house and within the house 11 steps and right rail to get upstairs, however pt does not have to use the 2nd floor. Home Environment Standard Height Toilet,Walk in Shower Home Equipment Four Wheel Walker,Straight Cane,Crutches,Shower Seat with Backrest Additional Social History Comment Pt has sisters who live in [place] and in [place]. Pt has small walk in shower and tub only. Per pt's sister considering getting pt tub bench and having supervisor phosphorus processing change out tub spout to hand held shower spray. M2 OT-IP Current Condition Start: 04/21/19 12:21 Freq: Status: Active Protocol: Document 04/21/19 10:20 [facility] (Rec: 04/21/19 14:23 [facility] [id number]) Occupational Therapy Current Condition Current Condition Evaluation Date 04/21/19 Treatment Diagnosis Acute hepatic encephalopathy, decreased self-care Diagnosis Onset Date 04/19/19 Weight Bearing Status Weight Bearing Status Weight Bear as Tolerated M3 OT- IP Subjective and Pain Start: 04/21/19 12:21 Freq: Status: Active Protocol: Document 04/21/19 10:20 [facility] (Rec: 04/21/19 14:23 [facility] [id number]) OT- Subjective Occupational Therapy Visit Type Type Initial Evaluation Visit Start Time 10:20 Visit Stop Time 10:45 Total Visit Minutes 47 Notes Pt also see from 1110 -1132, pt's family present to help answer questions. Occupational Therapy Visit Comments Patient Comments Pt willing to do OT eval however when needing to get up to use the bathroom, not wanting any females to assist him for any toileting or bathing needs. Patient/Caregiver Goals Pt wanting to go home. OT Pain Assessment Pain When Pain Assessed At Rest Pain Present Pain Present Denied Pain M4 OT- IP ADL's Start: 04/21/19 12:21 Freq: Status: Active Protocol: Document 04/21/19 10:20 [facility] (Rec: 04/21/19 14:23 [facility] [id number]) OT ADL-Dressing General Eval Lower Body Dressing Ability Maximum Assistance Areas Needing Assistance Socks OT ADL-Toileting Comments OT Toileting Comments Pt insisting only male staff to assist. Per APN pt needing assist for all hygiene needs. M5 OT- IP IADL's Start: 04/21/19 12:21 Freq: Status: Active Protocol: Document 04/21/19 10:20 [facility] (Rec: 04/21/19 14:23 [facility] [id number]) OT-Instrumental Activities of Daily Living Home Safety Awareness Awareness of Need for Assistance at Home Decreased Awareness Medication Management Medication Management Comments At this time pt unable to manage appropriately at home and will need assist. Money Management Money Management Comments Pt's sister managed all finances. Meal Preparation Meal Preparation Comments Pt states just has juice in the morning, maybe sandwich for lunch and microwave something for dinner. Pt's sister states he has Meals on Wheel however often does not eat. Driving Driving Comments Pt's car not working and therefore not driving at this time. M6 OT- IP Functional Cognition Start: 04/21/19 12:21 Freq: Status: Active Protocol: Document 04/21/19 10:20 [facility] (Rec: 04/21/19 14:23 [facility] [id number]) Cognitive Factors Limiting Selfcare Function Cognitive Ability Level of Alertness Alert Patient Orientation Name,Month Attention Span Ability Capable of Focused Attention, Capable of Sustained Attention Ability to Follow Commands Able to Follow One Step Commands Memory Description Short Term Impaired Safety Awareness Underestimates Need for Assistance Cognitive Tests SLUMS Pt scored 19/30 normal score for pt's education is 27/30. Pt score implies dementia. Pt mainly having difficulty with short term memory items, unable to draw and clock face and put the correct hours hands in, and pt states 1998 for the year. Cognitive Comments Cognitive Assessment Comments Pt able to follow simple commands. Pt very fatigued and not wanting to do more besides cognitive assessment. OT- Vision and Hearing OT- Vision Assessment Vision Assessment Comments Pt states glasses are broken from last fall that he crashed on the counter and that he has not gotten any new ones since. M7 OT- IP Mobility and Balance Start: 04/21/19 12:21 Freq: Status: Active Protocol: Document 04/21/19 10:20 [facility] (Rec: 04/21/19 14:23 [facility] [id number]) OT- Bed Mobility Assessment Sit to Supine Sit to Supine Assist Minimal Assistance OT-Transfer Assessment Sit to and From Stand Sit to and from Stand Minimal Assistance Transfers Transfer Ability Minimal Assistance Technique Transfer Destination Bed Devices Transfer Assistive Devices Gait Belt,Front Wheeled Walker OT- Balance Assessment Sitting Balance and Reactions Static Sitting Balance Ability Good Standing Balance and Reactions Static Standing Balance Ability Fair M8 OT- IP Objective Assessments Start: 04/21/19 12:21 Freq: Status: Active Protocol: Document 04/21/19 10:20 [facility] (Rec: 04/21/19 14:23 [facility] [id number]) OT Gross Range of Motion Upper Extremity Range of Motion Assessment Bilaterally Impaired OT Strength Comments Strength Comments Decreased BUE strength 3-/5 to 3+/5 from proximal to distal. M9 OT- IP Assessment and Plan Start: 04/21/19 12:21 Freq: Status: Active Protocol: Document 04/21/19 10:20 [facility] (Rec: 04/21/19 14:23 [facility] [id number]) OT Summary Assessment and Plan Potential Rehabilitation Potential Fair Analytic Complexity at Evaluation Low Summary OT Impairments Strength,Balance,Functional Cognition,Functional Mobility, Grooming,Dressing,Toileting, Bathing,Toilet Transfers, Shower Transfers Progress Towards Goals Slow Progress due to Activity Tolerance,Slow Progress due to Cognition Assessment Summary Pt low complexity and main barriers are decreased safety awareness, short term memory, decreased ADl's and functional mobility. At this time due to decreased functional cognition, safety awareness, and functional mobility suggested to have 24/7 assist if going home or go to skilled rehab first to get safer with mobility needs. Per pt has a fall on a weekly basis. Goals Grooming Goal Standby Assistance Dressing Goal Standby Assistance Toileting Goal Standby Assistance Toilet Transfer Goal Standby Assistance Patient/Caregiver Education Goal Caregiver Independent Assisting Patient Days to Meet Goals 7 Frequency of Treatment Frequency Of Treatment Once a Day Treatment Plan OT Treatment Plan ADL Training,Functional Cognition Training,Functional Mobility,Patient/Family Education,Discharge Planning Other Treatment Recommendations and Next Stand with FWW for grooming Treatment Focus needs. Discharge Recommendations OT Discharge Recommendations SNF Rehab Other Discharge Recommendations If going home 24/7 assist. Home Equipment Needs Tub bench, HHSP
--- NOTE | 2019-04-21 11:07 | P.PN_ITS ---
Subjective Subjective Date Patient Seen: 04/21/19 Time Patient Seen: 08:50 Interval history: Edson Stone is a 64-year-old male with a past medical history significant for decompensated alcoholic liver cirrhosis with complication of hepatic encephalopathy and SBP, alcohol dependence, nicotine dependence, chronic back pain, and BPH who presented to the ED via EMS for confusion, weakness, and coarse breath sounds. Patient is resting comfortably in bed. He denies any abdominal pain today. He was not clear on how many bowel movements he had yesterday but stated he had a large one. He has no other complaints and denies headache, chest pain, shortness of breath, nausea, vomiting, fever, chills, or dysuria. He is voiding and eliminating without difficulty. Physical therapy has recommended SNF rehab, however he has refused this in the past. His INR remains elevated and although he is being treated for SBP, we will attempt diagnostic paracentesis once INR is improved. Exam Vital Signs (past 8 hours): - 04/21/19 06:00 04/21/19 08:00 04/21/19 08:09 Temperature 97.8 F 98.2 F Pulse Rate 94 H 96 H Respiratory Rate 16 20 Blood Pressure 109/66 103/61 Pulse Oximetry 97 97 97 Oxygen Delivery Method Room Air Oxygen Flow Rate 0 Narrative Exam Narrative: General: Older gentleman lying in bed and in no acute distress, appears older than stated age in chronically ill, dusky skin color, awake, alert, more conversant. HEENT: Normocephalic, atraumatic. External ears without defect. Pupils equal, round, and reactive to light. Anicteric sclerae, moist conjunctivae, and no lid lag. Oropharynx free of erythema and cobble stoning with moist mucosa. Neck: Supple with full range of motion. No jugular venous distension. No lymphadenopathy or thyromegaly. Cardiovascular: Regular rate and rhythm without murmurs, rubs, or gallops appreciated Pulmonary: Clear to auscultation bilaterally with bibasilar crackles and upper airway rhonchi. No wheezes. Normal respiratory effort without use of accessory muscles. Abdomen: Soft, positive fluid wave consistent with mild ascites, tympanic bowel sounds, mild diffuse tenderness to palpation, nondistended. No hepat osplenomegaly or masses appreciated. Extremities: No clubbing, cyanosis, or edema. Skin: Normal temperature, turgor, and texture; no rash, ulcers, or subcutaneous nodules appreciated. Patient has stigmata of liver disease including palmar erythema, asterixis, spider angiomata and telangiectasias on face. No caput medusae. Neurological: Cranial nerves grossly intact. Objective Labs Result Diagrams: 04/21/19 05:28 04/21/19 05:28 Labs: Laboratory Results - last 24 hr 04/21/19 04/21/19 04/21/19 05:28 05:28 05:28 WBC 5.9 RBC 3.33 L Hgb 11.2 L Hct 33.6 L MCV 101.0 H MCH 33.6 MCHC 33.3 RDW 15.4 H Plt Count 106 L Neut % (Auto) 65.4 Lymph % (Auto) 18.7 L [place] % (Auto) 13.6 Eos % (Auto) 1.4 L Baso % (Auto) 0.9 Neut # (Auto) 3800 Lymph # (Auto) 1100 [place] # (Auto) 800 Eos # (Auto) 100 Baso # (Auto) 100 PT 19.3 H INR 1.7 H Sodium 138 Potassium 3.3 L Chloride 109 H Carbon Dioxide 23 BUN 7 L Creatinine 0.60 L Estimated GFR > 60.0 BUN/Creatinine Ratio 11.7 Glucose 102 Calcium 8.8 Magnesium 1.6 Total Bilirubin 1.7 H AST 45 ALT 21 Alkaline Phosphatase 195 H Total Protein 5.7 L Albumin 2.3 L Globulin 3.4 Albumin/Globulin Ratio 0.7 L Assessment & Plan Assessment & Plan narrative: Edson Stone is a 64-year-old male with a past medical history significant for decompensated alcoholic liver cirrhosis with complication of hepatic encephalopathy and SBP, alcohol dependence, nicotine dependence, chronic back pain, and BPH who presented to the ED via EMS for confusion, weakness, and coarse breath sounds. 1. Acute decompensated alcoholic liver cirrhosis with hepatic encephalopathy and SBP, present on admission. Active. -Patient presented with hepatic encephalopathy, mild 3rd spacing with ascites and peripheral edema and mild abdominal pain -Liver function impaired with INR 1.6 and albumin 2.3. Platelets low normal at 152. MELD 17 down to 16. Child Alves Class C. -Previous CT abdomen and pelvis with contrast in 03/2019 demonstrated cirrhosis and early portal hypertension. -Alcohol level negative. Patient has reportedly not been drinking alcohol since day after discharge approximately 10 days ago. -Continue strict I&O and daily weights with diuresis. Net +2 L. -Continue low-sodium diet less than 2 g daily and fluid restriction of 1.5 L. -Continue to monitor electrolytes closely and replete as necessary. -Started 2:1 spironolactone to furosemide for diuresis and treat ascites/3rd spacing. Contine lasix 40 mg daily and aldactone 100 mg daily. -Continue lactulose 30 g 3 times daily until having 2-3 BMs per day. Continue rifaximin 550 mg twice daily. -Continue nadolol 20 mg daily to treat portal hypertension. -Recommended outpatient referral to hepatology for further evaluation and treatment. 2. Acute spontaneous bacterial peritonitis, present on admission. Active. -Patient has mild ascites with significant tenderness to palpation of abdomen and hepatic encephalopathy which is indicative of SBP. -Received IV fluid in ED and on admission for unclear reason? Discontinued IV fluids as patient is clearly 3rd spacing and diuresed as above which improved blood pressure. -His INR is elevated at 1.7, will try and lower to be able to perform diagnostic paracentesis. -Blood cultures x2 have no growth to date. -Continue ceftriaxone 2 g IV daily and continue antibiotic treatment for 5 days total. (today is day 3) -Patient should start SBP prophylaxis upon discharge, pending 3. Acute hepatic encephalopathy, present on admission. Resolving. -Initial ammonia level 68 which is higher than on previous admission. -Continue lactulose 30 g 4 times daily or until having 2-3 bowel movements per day. During his last admission, he declined to take it, family members are present to attempt to persuade him to take it. Started and will continue rifaximin 550 mg twice daily. -Family is considering hospice but would like for the patient's mentation to clear and communicate his desires prior to placing on hospice. 4. Acute hypomagnesemia, present on admission. Active. -Initial magnesium level 1.5. -Continue magnesium chloride 128 mg daily. -Continue to monitor magnesium level closely and replete as necessary. 5. Acute on chronic severe protein calorie malnutrition, present on admission -Encourage PO intake of food. Continue low-sodium diet less than 2 g daily and fluid restriction of 1.5 L. -Continue aspiration precautions due to his lethargy. 6. Chronic alcohol dependence, present on admission. -Alcohol level negative. Patient has reportedly not been drinking alcohol since day after discharge approximately 10 days ago. -Continue home thiamine 100 mg daily and folic acid 1 mg daily. -Continue to monitor for alcohol withdrawal. Low threshold to start CIWA protocol. 7. Tobacco dependence, chronic, present on admission. Stable. -Patient smokes 3 packs per day. -Continue nicotine patch as needed for nicotine withdrawal. 8. Benign prostatic hypertrophy, chronic, present on admission. Stable. -Continue tamsulosin 0.4 mg daily at bedtime. 9. History of hypercalcemia secondary to hyperparathyroidism. -Patient was previously referred for outpatient surgical evaluation but it is unclear if this has been pursued. Once his mentation improves, if he wishes to proceed with surgical evaluation he can be referred by his PCP at the [facility]. Disposition: Patient likely discharge SNF for rehab vs. home with home health vs home with hospice in the next several days once diuretics have been optimized and spontaneous bacterial peritonitis has been adequately treated. Quality VTE Deep Vein Thrombosis/Pulmonary Embolism Present on Admission: No
--- NOTE | 2019-04-21 11:31 | PC.NURSE ---
AM NOTE - pt is awake, oriented to hospital, speech is clear, pt is forgetful at times searches for words, denies pain, assist x 1 person w/fww up to br w/liq stool this am, poor appetite, states he is thirsty and discussed fluid restriction, rationale with pt, dislikes lactolose but did drink this am, abd moderately distended, discussed paracentesis with Leyla in [place] and Dr. Sexton, probably later this afternoon, declined chair, ret to bed w/alarm set.
--- NOTE | 2019-04-21 12:00 | PT-IP ANOTE ---
Patient refused to work with physical therapy. He reports he is in pain but can not tell me where. He reports he just wants to stay in bed. Pt refused to get up to bedside commode for BM issues. Will try again later today.
[2019-04-21] MEDS: CEFTRIAXONE 2 GM/50 ML FROZ.PIGGY IV (12:18)
--- NOTE | 2019-04-21 14:45 | PT-IP ANOTE ---
Updated prior functional status and goals today. Clarified his home set-up with his Sister. 1 PT/OT-IP Prior Functional Status- Updated 04/21/19 Freq: NEEDED Status: Active Protocol: Document 04/21/19 10:20 [facility] (Rec: 04/21/19 14:23 [facility] [id number]) Medical Review Prior Functional Status Medical History Reviewed Yes Communication Able to make needs known, though pt presents as confused . Mobility and Gait Pt has used a 4WW for all mobility over the past 1.5 years. He reports being limited to 15 feet distance. Activities of Daily Living and IADL's Pt states he wears clothes that are easy to put on/take off, but is independent with dressing. He notes he has not showered regularly in months. He is toileting independently. Friends and/or his sisters help him with grocery delivery . During OT eval, pt's sister states pt has been malnourished and does get Meals on Wheels, does not remember to take his medications even though has a pill organizer, and per pt has not showered in months. pt states car broken down and has not driven. Per pt's sister she and other family members has sepnt the last 2-3 weeks cleaning his house. Prior Functional Level (Other details) Pt states he falls regularly. The last fall he recalls occured about two weeks ago. He states falls are as likely to happen with his walker as without. Social History Household Members none Living Arrangements House Number of Floors (Floors) Two Floors Number of Stairs To Enter/Railing? Clarified with pt's sister, pt have 10-12ft concrete side walk after steep driveway. 2 steps with right post to get into the house and within the house 11 steps and right rail to get upstairs, however pt does not have to use the 2nd floor. Home Environment Standard Height Toilet,Walk in Shower Home Equipment Four Wheel Walker,Straight Cane,Crutches,Shower Seat with Backrest Additional Social History Comment Pt has sisters who live in [place] and in [place]. Pt has small walk in shower and tub only. Per pt's sister considering getting pt tub bench and having dry cell sealer change out tub spout to hand held shower spray.
--- NOTE | 2019-04-21 14:50 | PT.IPTN ---
Current Diagnoses Metabolic encephalopathy (04/19/19) Physical Therapy Treatment Note M2 PT-IP Current Condition Start: 04/20/19 08:16 Freq: NEEDED Status: Active Protocol: Document 04/20/19 15:25 AW (Rec: 04/20/19 15:58 AW [id number]) Physical Therapy Current Condition Current Condition Evaluation Date 04/20/19 Treatment Diagnosis acute hepatic encephalopathy, difficulty in walking Onset Date 06/19/18 Weight Bearing Status Weight Bearing Status Full Weight Bearing M3 PT-IP Subjective Start: 04/20/19 08:16 Freq: NEEDED Status: Active Protocol: Document 04/21/19 14:50 [facility] (Rec: 04/21/19 15:02 [facility] [id number]) Subjective Physical Therapy Visit Type Type Patient Refusal Notes Pt sleeping and refused to get up even after encouragement. M4 PT-IP Mobility and Gait Start: 04/20/19 08:16 Freq: NEEDED Status: Active Protocol: Document 04/20/19 15:25 AW (Rec: 04/20/19 15:58 AW [id number]) PT-Bed Mobility Assessment Rolling Type of Rolling Roll to Left Level of Assist Standby Assistance Supine to Sit Supine to Sit Minimal Assistance Sit to Supine Sit to Supine Contact Guard Assistance Scooting Scooting to Edge of Bed Contact Guard Assistance Scooting Up and Down in Bed Standby Assistance PT-Transfer Assessment Sit to and From Stand Sit to and from Stand Minimal Assistance,1 Person Assistance,Use of Upper Extremities Equipment Transfer Assistive Device Gait Belt,Front Wheeled Walker Orthotic/Prosthetic Devices or Brace: No Transfers Transfer Destination Bed,Toilet Transfer Technique pt ambulated with FWW Transfer Ability Level of Assist Contact Guard Assistance, Minimal Assistance Comments Mobility Comments Pt required min assist for supine to sit transfer with HOB flat. Pt was able to swing his legs out of bed but required PROFESSOR [employer] ARCHAE[employer]Y/min assist to sit upright. Sit to stand from bed required CGA; sit to stand from toilet required min assist and use of grab bar. Upon return to bed, pt was able to scoot toward HOB CGA. Gait Assessment Gait Gait Assistance Required: Contact Guard Assist,Minimum Assistance Distance (Feet) 15 Able to Maintain Weight Bearing Status Yes During Gait Assistive Devices Assistive Device Gait Belt,Front Wheeled Walker Orthotic/Prosthetic Devices or Brace: No Gait Deviations General Gait Pattern Antalgic,Decreased Stride Length,Decreased Feet Clearance,Flexed Trunk,Step-to Gait Factors Limiting Gait Function Factors Limiting Gait Function Decreased Activity Tolerance, Decreased Sensation,Decreased Strength,Pain,Poor Balance, Poor Safety Awareness Comments Gait Comments Pt required CGA to min assist for gait with FWW. Pt ambulated 15 feet x 2, requiring assist due to unsteady gait and lateral loss of balance x 2. Stair Climbing Assessment Comments Stair Climbing Comments Not assessed PT-Balance Assessment Sitting Balance and Reactions Static Sitting Balance Ability Good Dynamic Sitting Balance Ability Good Standing Balance and Reactions Static Standing Balance Ability Fair Dynamic Standing Balance Ability Fair Device Used FWW M5 PT-IP Objective Assessments Start: 04/20/19 08:16 Freq: NEEDED Status: Active Protocol: Document 04/20/19 15:25 AW (Rec: 04/20/19 15:58 AW [id number]) Orientation Orientation/Cognition Level of Alertness Confusional State Orientation Name,Year,Place,Situation Language Function Ability No Deficits Noted Safety Awareness Decreased Safety Awareness Memory Description Short Term Impaired Gross Range of Motion Upper Extremity ROM Assessment Within Functional Limits Lower Extremity ROM Assessment Bilaterally Impaired Strength Upper Extremity Strength Assessment Within Functional Limits Lower Extremity Strength Assessment Bilaterally Impaired Hip 3+/5 Knee 4/5 Ankle 4/5 Coordination Assessment Gross Coordination Gross Coordination Impaired Assessment Finger to Nose Test Minimal Impairment Pronation/Supination Test Minimal Impairment Coordination Comments Signs of dysmetria on finger to nose testing (R more affected than L) with missed target <5 cm. Pt was able to perform pronation/supination but slowly. Sensation Assessment Sensation Gross Sensation Right LE Impaired,Left LE Impaired Light Touch Impaired Comments Sensation Comments Pt with impaired light touch sensation bilateral plantar feet. Dorsal feet less affected but pt does endorse dull sensation. M6 PT-IP Treatment Start: 04/20/19 08:16 Freq: NEEDED Status: Active Protocol: Document 04/20/19 15:25 AW (Rec: 04/20/19 15:58 AW [id number]) Physical Therapy Treatment Education Education Provided Precautions,Safety Other Treatments Other Treatment Performed Discussed need for assistive device, physical assist with all mobility. Pt left with bed alarm armed, call light and table within reach. M7 PT-IP Assessment and Plan Start: 04/20/19 08:16 Freq: NEEDED Status: Active Protocol: Document 04/21/19 14:43 DLM (Rec: 04/21/19 14:44 [email or web address] [id number]) PT Summary Assessment and Plan Goals Bed Mobility Goal Standby Assistance Transfer Goal Standby Assistance,Front Wheeled Walker Gait Goal Standby Assistance,Front Wheel Walker Gait Distance 50 Other Goals up/down 2 stairs with R railing (ascending) CGA Days to Meet Goals 10 Treatment Plan Other Recommendations and Next Treatment Modified goals now that home Focus set-up clarified with his family
--- NOTE | 2019-04-21 18:47 | CM.DANOTE ---
DCP Breif assessment: EMR reviewed: Patient is a 64 yr old male admitted for liver Cirrhosis with Hepatic encephalopathy. PCP is not noted. CM attempted to meet with patient at the bed side to discuss possible D/C plan and patients goals of care. Patient was not alert. He was unable to open his eyes and engage in a coherent conversation with CM. CM asked if patient would like to go to SNF when he D/C and patient said that I don't want to go back to work. In previous IP stay in March 2019, patient was adamant that he did not want to go to SNF or have HH services. Further assessment and D/C planning will need to be done when patient is less lethargic and is able to communicate thoughts with CM department. Patient At last IP stay patient had an APS report started and patients draw off worker was Tawnya Haas [phone]. CM placed a call to case supervisor and Left a message to call CM department back to discuss patient. CM talked with patient nurse and she stated that patient denied his 5pm Lactulose which could be affecting his cognition status at this time. Cm called Patients sister Dallas who is his DPOA. [phone] and left a message to discuss patient goals of care and d/c plan with her. Insurance: [place] [employer], 2nd self pay. Plan: CM department to follow closely to discuss d/c planning option with patient. SNF? home with HH? or Hospice (if patient doesn't want to quit drinking). CM department to discuss options and goals of care with patient and DPOA dallas Bond (patients sister). Bailey Smith RN Discharge Planning/Care Management Advanced directive, confirm from [facility] Start: 04/19/19 02:25 Freq: 1300 Status: Active Protocol: Document 04/21/19 13:00 NEE (Rec: 04/21/19 14:10 NEE [id number]) Advance Directive, confirm on record Time 14:00 Person contacted PT Copy received No CM Discharge Assessment Start: 04/21/19 18:15 Freq: Status: Active Protocol: Document 04/21/19 18:16 HS (Rec: 04/21/19 18:46 HS [id number]) Discharge Planning Assessment Assigned Tooth Polisher Bailey Smith RN DPOA/Assigned Designee Name Dallas Marcelo Contact Information [phone] Advance Directives? Yes: ADV DIR, DPOA for HC, DPOA History Provided By Patient,Family Member,Medical Record Has Patient been admitted in last 30 Yes days? Comment was last admitted 03/30/2019 Prior Living Arrangements House Household Members none Independent with ADL's No Is patient alert and oriented? No: drowsy and not tracking conversation Needs Assistance With Grooming,Managing Medications Caregiver for Another No DME Already Rented / Owned FWW / Walker,Cane Comment undetermined at this time possible Home with HH or SNF. Transportation Arrangement Family Referrals Initiated Other Whiteboard Updated in Patient Room with Yes name and ext. # of Tooth Polisher Review Status In Process Next Review Type Continued Stay Review
--- NOTE | 2019-04-21 20:09 | CM.DPNOTE ---
DCP continued: EMR reviewed: Patients DPCARLY Arreola Called CM back to discuss at length patients health, goals of care and d/C plan. Patients sister was not happy about patient not taking 1700 lactulose dose. CM told patients sister that patient stated he would take the 2100 dose. Patients sister would like if the patients nurse would call her after 2100 dose to let her know if the patient refused or not that way she can decided what to do next if patient is not complying with treatment as previously discussed with Dr. Childress. CM will give contact information to patients RN. CM let patient sister know that at the time of CM visit patient was not oriented and was very lethargic. Patient sister was concerned since he was more alert and oriented earlier in the day. CM discussed Hospice, HH and SNF options with patients sister (DPCARLY) to determine what route they were leaning for D/C planning purposes. Currently the family is leaning towards home with HH since the patient is adamantly against going to SNF. Patient sister stated she would like to set up HH and work on that for patient. CM explained that CM can help to set that up and patient sister kindly denied help. CM gave [facility], [facility] and [facility] resource information to patients . Elba (sister) contact number [phone]. she plans to be her tomorrow morning to talk with MD and patient about what the continued plan of care will look like. Patients sister's and mother are at the patients home cleaning and getting everything set up for patient to come home at D/C including getting a hospital bed to help with patients care. If patients cognition clears up tomorrow Elba () plans to have the talk with the patient about seeking treatment for his health issues or if he would like to stop and look more towards comfort care and really determine patients goals of care. Plan: currently D/C plan is to go home with HH that patients (SANDRO) will set up. CM/ department to Follow closely to determine if patient wants to continue treatment or possible Hospice options and help with any d/c planning needs. Bailey Smith RN
[2019-04-21] MEDS: TAMSULOSIN 0.4 MG CAPSULE PO (20:48)
[2019-04-22] VITALS (11 sets, daily range): BP systolic 98–109; BP diastolic 59–77; PULSE 77–96; RESP 16–20; TEMP 35.8–37.1; O2SAT 95–100
--- NOTE | 2019-04-22 00:32 | PC.NURSE ---
FFP stil infusing no S&S of reactions noted, will monitor.
[2019-04-22] MEDS: SODIUM CHLORIDE 0.9% FLUSH 10 ML IV ×3 (01:55→21:15)
--- NOTE | 2019-04-22 02:21 | PC.NURSE ---
0155 FFP transfused, no S&S of any reactions noted, Will cont. POC & monitor.
[2019-04-22 05:42] LABS: INR 1.5 (0.9-1.3); Prothrombin Time 17.1 SECONDS (10.1-12.7)
[2019-04-22 05:44] LABS: Add Manual Diff / Slide Review NO; Basophils Absolute Auto 100 /uL (0-100); Basophils Percent Auto 0.9 % (0-2); Eosinophils Absolute Auto 100 /uL (0-450); Eosinophils Percent Auto 1.5 % (2-4); Hematocrit 33.4 % (41-53); Hemoglobin 11.2 g/dL (13.5-17.5); Lymphocytes Absolute Auto 1200 /uL (1100-4500); Lymphocytes Percent Auto 20.9 % (25-40); Mean Corpuscular HGB Conc 33.5 % (30-36); Mean Corpuscular Hemoglobin 33.8 PG (26-34); Monocytes Absolute Auto 800 /uL (0-900); Monocytes Percent Auto 14.8 % (3-14); Neutrophils Absolute Auto 3600 /uL (1500-7000); Neutrophils Percent Auto 61.9 % (50-75); PTT Partial Thromboplastin Tim 38 SECONDS (26.4-36.2); Platelet Count 109 X10^3/uL (150-400); Red Blood Cell Count 3.31 X10^6/uL (4.5-5.9); Red Cell Distribution Width 15.6 % (11.6-14.8); White Blood Cell Count 5.8 X10^3/uL (4.5-11.0)
[2019-04-22 05:48] LABS: Blood Urea Nitrogen 6 mg/dL (9-20); Calcium 9.4 mg/dL (8.4-10.2); Carbon Dioxide 23 mmol/L (22-32); Chloride 111 mmol/L (98-107); Estimated Glomerular Filt Rate > 60.0 mL/min (>60); Glucose 102 mg/dL (80-110); HEMOLYSIS < 15 (0-50); Magnesium 1.7 mg/dL (1.6-2.3); Potassium 3.8 mmol/L (3.4-5.1); Sodium 139 mmol/L (137-145)
[2019-04-22] MEDS: POTASSIUM CHLORIDE 20 MEQ TAB 40 MEQ PO ×2 (09:07→17:07)
[2019-04-22] MEDS: NADOLOL 40 MG TABLET 20 MG PO (09:08)
[2019-04-22] MEDS: LACTULOSE 20 GM/30 ML SOLUTION 30 GM PO ×2 (09:08→17:07)
[2019-04-22] MEDS: RIFAXIMIN 550 MG TABLET PO ×2 (09:10→21:14)
[2019-04-22] MEDS: THIAMINE 100 MG TABLET PO (09:10)
[2019-04-22] MEDS: FOLIC ACID 1 MG TABLET PO (09:10)
[2019-04-22] MEDS: FUROSEMIDE 20 MG TABLET 40 MG PO (09:11)
[2019-04-22] MEDS: MAGNESIUM CHLORIDE 64 MG TABLET 128 MG PO (09:12)
[2019-04-22] MEDS: SPIRONOLACTONE 25 MG TABLET 100 MG PO (09:12)
[2019-04-22] MEDS: NICOTINE 21 MG PATCH TOP (09:13)
--- NOTE | 2019-04-22 09:42 | DI.US.S_ITS ---
PROCEDURE: US ABDOMEN LIMITED INDICATIONS: ASCITES TECHNIQUE: Real-time focused scanning was performed of the abdomen, with image documentation. COMPARISON: None. FINDINGS: A moderate amount of ascites noted in the abdomen and pelvis. Right lower quadrant marked for paracentesis by ordering provider. IMPRESSION: Moderate ascites. Dictated by: Niesha Anderson MD, PhD on 04/22/2019 at 11:43 Approved by: Niesha Anderson MD, PhD on 04/22/2019 at 11:44
--- NOTE | 2019-04-22 10:02 | P.PN_ITS ---
Subjective Subjective Date Patient Seen: 04/22/19 Time Patient Seen: 09:00 Interval history: Edson Stone is a 64-year-old male with a past medical history significant for decompensated alcoholic liver cirrhosis with complication of hepatic encephalopathy and SBP, alcohol dependence, nicotine dependence, chronic back pain, and BPH who presented to the ED via EMS for confusion, weakness, and coarse breath sounds. Patient is resting comfortably in bed. He states his abdominal pain is worse today. He was not clear on how many bowel movements he had yesterday but stated he had a large one. He has no other complaints and denies headache, chest pain, shortness of breath, nausea, vomiting, fever, chills, or dysuria. He is voiding and eliminating without difficulty. Physical therapy has recommended SNF rehab, however he continues to refuse is. He received FFP overnight and his INR is 1.5 this morning. Will proceed with a diagnostic paracentesis today to evaluate patient's cell count, and will send cultures as well. Exam Vital Signs (past 8 hours): - 04/22/19 07:00 04/22/19 08:00 Temperature 97.4 F L Pulse Rate 96 H Respiratory Rate 18 Blood Pressure 105/59 L Pulse Oximetry 97 97 Oxygen Delivery Method Room Air Oxygen Flow Rate 0 Narrative Exam Narrative: General: Older gentleman lying in bed and in no acute distress, appears older than stated age in chronically ill, dusky skin color, awake, alert, more conversant. HEENT: Normocephalic, atraumatic. External ears without defect. Pupils equal, round, and reactive to light. Anicteric sclerae, moist conjunctivae, and no lid lag. Oropharynx free of erythema and cobble stoning with moist mucosa. Neck: Supple with full range of motion. No jugular venous distension. No lymphadenopathy or thyromegaly. Cardiovascular: Regular rate and rhythm without murmurs, rubs, or gallops appreciated Pulmonary: Clear to auscultation bilaterally with bibasilar crackles and upper airway rhonchi. No wheezes. Normal respiratory effort without use of accessory muscles. Abdomen: Soft, positive fluid wave consistent with mild ascites, tympanic bowel sounds, mild diffuse tenderness to palpation, nondistended. No hepatosplenomegaly or masses appreciated. Extremities: No clubbing, cyanosis, or edema. Skin: Normal temperature, turgor, and texture; no rash, ulcers, or subcutaneous nodules appreciated. Patient has stigmata of liver disease including palmar erythema, asterixis, spider angiomata and telangiectasias on face. No caput medusae. Neurological: Cranial nerves grossly intact. Strength equal bilaterally, +5/5 in UE and LE. Objective Labs Result Diagrams: 04/22/19 05:11 04/22/19 05:11 Labs: Laboratory Results - last 24 hr 04/21/19 04/22/19 04/22/19 19:18 05:11 05:11 WBC 5.8 RBC 3.31 L Hgb 11.2 L Hct 33.4 L MCV 101.0 H MCH 33.8 MCHC 33.5 RDW 15.6 H Plt Count 109 L Neut % (Auto) 61.9 Lymph % (Auto) 20.9 L [place] % (Auto) 14.8 H Eos % (Auto) 1.5 L Baso % (Auto) 0.9 Neut # (Auto) 3600 Lymph # (Auto) 1200 [place] # (Auto) 800 Eos # (Auto) 100 Baso # (Auto) 100 PT 17.1 H INR 1.5 H APTT 38 H Sodium Potassium Chloride Carbon Dioxide BUN Creatinine Estimated GFR BUN/Creatinine Ratio Glucose Calcium Magnesium Blood Type O Positive 04/22/19 05:11 WBC RBC Hgb Hct MCV MCH MCHC RDW Plt Count Neut % (Auto) Lymph % (Auto) [place] % (Auto) Eos % (Auto) Baso % (Auto) Neut # (Auto) Lymph # (Auto) [place] # (Auto) Eos # (Auto) Baso # (Auto) PT INR APTT Sodium 139 Potassium 3.8 Chloride 111 H Carbon Dioxide 23 BUN 6 L Creatinine 0.50 L Estimated GFR > 60.0 BUN/Creatinine Ratio 12.0 Glucose 102 Calcium 9.4 Magnesium 1.7 Blood Type Assessment & Plan Assessment & Plan narrative: Edson Stone is a 64-year-old male with a past medical history significant for decompensated alcoholic liver cirrhosis with complication of hepatic encephalopathy and SBP, alcohol dependence, nicotine dependence, chronic back pain, and BPH who presented to the ED via EMS for confusion, weakness, and coarse breath sounds, he is admitted for and currently being treated for SBP which has been diagnosed clinically. Plan is for diagnostic paracentesis today. 1. Acute decompensated alcoholic liver cirrhosis with hepatic encephalopathy and SBP, present on admission. Active. -Patient presented with hepatic encephalopathy, mild 3rd spacing with ascites and peripheral edema and mild abdominal pain -Liver function impaired with INR 1.6 and albumin 2.3. Platelets low normal at 152. MELD 17 down to 16. Child Alves Class C. -Previous CT abdomen and pelvis with contrast in 03/2019 demonstrated cirrhosis and early portal hypertension. -Alcohol level negative. Patient has reportedly not been drinking alcohol since day after discharge approximately 10 days ago. -Continue strict I&O and daily weights with diuresis. Net +2 L. -Continue low-sodium diet less than 2 g daily and fluid restriction of 1.5 L. -Continue to monitor electrolytes closely and replete as necessary. -Started 2:1 spironolactone to furosemide for diuresis and treat ascites/3rd spacing. Contine lasix 40 mg daily and aldactone 100 mg daily. -Continue lactulose 30 g 3 times daily until having 2-3 BMs per day. Continue rifaximin 550 mg twice daily. -Continue nadolol 20 mg daily to treat portal hypertension. -Recommended outpatient referral to hepatology for further evaluation and neftaly atment. 2. Acute spontaneous bacterial peritonitis, present on admission. Active. -Patient has mild ascites with significant tenderness to palpation of abdomen and hepatic encephalopathy which is indicative of SBP. -Received IV fluid in ED and on admission for unclear reason? Discontinued IV fluids as patient is clearly 3rd spacing and diuresed as above which improved blood pressure. -His INR is improved today to 1.5 after FFP. Will proceed with paracentesis today for further evaluation. -Blood cultures x2 have no growth to date. -Continue ceftriaxone 2 g IV daily and continue antibiotic treatment for 5 days total. (today is day 4) -Patient should start SBP prophylaxis upon discharge, pending paracentesis. 3. Acute hepatic encephalopathy, present on admission. Resolving. -Initial ammonia level 68 which is higher than on previous admission. -Continue lactulose 30 g 4 times daily or until having 2-3 bowel movements per day. During his last admission, he declined to take it, family members are present to attempt to persuade him to take it. Started and will continue rifaximin 550 mg twice daily. -Family is considering hospice but would like for the patient's mentation to clear and communicate his desires prior to placing on hospice. 4. Acute hypomagnesemia, present on admission. Active. -Initial magnesium level 1.5. -Continue magnesium chloride 128 mg daily. -Continue to monitor magnesium level closely and replete as necessary. 5. Acute on chronic severe protein calorie malnutrition, present on admission -Encourage PO intake of food. Continue low-sodium diet less than 2 g daily and fluid restriction of 1.5 L. -Continue aspiration precautions due to his lethargy. 6. Chronic alcohol dependence, present on admission. -Alcohol level negative. Patient has reportedly not been drinking alcohol since day after discharge approximately 10 days ago. -Continue home thiamine 100 mg daily and folic acid 1 mg daily. -Continue to monitor for alcohol withdrawal. Low threshold to start CIWA protocol. 7. Tobacco dependence, chronic, present on admission. Stable. -Patient smokes 3 packs per day. -Continue nicotine patch as needed for nicotine withdrawal. 8. Benign prostatic hypertrophy, chronic, present on admission. Stable. -Continue tamsulosin 0.4 mg daily at bedtime. 9. History of hypercalcemia secondary to hyperparathyroidism. -Patient was previously referred for outpatient surgical evaluation but it is unclear if this has been pursued. Once his mentation improves, if he wishes to proceed with surgical evaluation he can be referred by his PCP at the [facility]. Disposition: Patient likely discharge SNF for rehab vs. home with home health vs home with hospice in the next several days once diuretics have been optimized and spontaneous bacterial peritonitis has been adequately treated. Quality VTE Deep Vein Thrombosis/Pulmonary Embolism Present on Admission: No
--- NOTE | 2019-04-22 10:10 | OT.IP.TRT ---
Current Diagnoses Metabolic encephalopathy (04/19/19) Occupational Therapy Treatment Note M2 OT-IP Current Condition Start: 04/21/19 12:21 Freq: Status: Active Protocol: Document 04/21/19 10:20 [facility] (Rec: 04/21/19 14:23 [facility] [id number]) Occupational Therapy Current Condition Current Condition Evaluation Date 04/21/19 Treatment Diagnosis Acute hepatic encephalopathy, decreased self-care Diagnosis Onset Date 04/19/19 Weight Bearing Status Weight Bearing Status Weight Bear as Tolerated M3 OT- IP Subjective and Pain Start: 04/21/19 12:21 Freq: Status: Active Protocol: Document 04/22/19 10:10 [facility] (Rec: 04/22/19 11:27 [facility] [id number]) OT- Subjective Occupational Therapy Visit Type Type Patient Refusal Notes Pt refusing OT treatment as waiting to have procedure done later.
--- NOTE | 2019-04-22 12:40 | PM.PROC.1 ---
Procedures Date/Time Date of procedure: 04/22/19 Time of procedure: 12:30 Paracentesis Time out performed: Yes Indication: possible spontaneous bacterial peritonitis Procedure: diagnostic paracentesis Location: RLQ Local anesthetic used: lidocaine 1% Amount of anesthesia used (ml): 5 Bedside ultrasound used: yes, Ascites confirmed and location marked Preparation: sterile prep and drape Amount of fluid obtained (ml): 60 Fluid: cloudy Size of needle used: 16 Post procedure exam: awake, alert Patient tolerated procedure: well and no complications Complications: none Additional comments: Prior to the procedure formal consent was obtained from the patient after discussion of risks and benefits of the procedure, and allowing the patient to ask any questions. Ultrasound was used to find a suitable pocket, and the site was marked. A time-out was performed. The site was then prepped and draped in usual sterile fashion, and an 16 gauge needle was inserted with return of cloudy yellow fluid. A total of approximately 60 mL was obtained for diagnostic purposes. The fluid was sent to the lab for analysis and culture. There was no bleeding and the patient tolerated the procedure well. There were no further complications.
--- NOTE | 2019-04-22 12:48 | PC.NURSE ---
Addendum entered by Nancy Wong R.N. 04/22/19 14:35: MEDS - pt resting bed, discussed lactolose admin, rationale, pt declines I already sh-- about 15 times. Original Note: AM NOTE - pt awakens easily, repositioned upright for breakfast, some back discomfort this am, abd distended w/ascites, +bt, congested, non productive cough this am, inspir/expir wheezes after cough, ra 94-97%, hr 97, 1+ pedal edema, in for paracentesis, procedure completed, fluid sent to lab, discussed pain mgt and new order rec'd for tylenol and given 650mg po.
[2019-04-22] MEDS: CEFTRIAXONE 2 GM/50 ML FROZ.PIGGY IV (12:55)
[2019-04-22] MEDS: ACETAMINOPHEN 325 MG TABLET 650 MG PO ×2 (12:55→19:50)
[2019-04-22 13:13] LABS: Albumin Body Fluid < 1.0 g/dL
[2019-04-22 13:15] LABS: Total Protein Body Fluid < 2.0 g/dL
[2019-04-22 13:19] LABS: Body Fluid Tot Nucleated Cells 85 /uL
[2019-04-22 13:20] LABS: Body Fluid Red Blood Cells 303 /uL
--- NOTE | 2019-04-22 13:51 | PT-IP ANOTE ---
Attempted to see pt following paracentesis. Educated pt on importance of mobility at this stage, but he continued to refuse, stating he felt too wiped out and groggy. Will follow up morning of 04/23/19.
[2019-04-22 14:18] LABS: Body Fluid Appearance CLEAR; Body Fluid Clotted? NO CLOTS PRESENT; Body Fluid Color YELLOW; Polynuclear WBC Body Fluid 10 %
[2019-04-22 14:19] LABS: Eosinophils Body Fluid 0 %
[2019-04-22 14:24] LABS: Mononuclear WBC Body Fluid 84 %
[2019-04-22 14:25] LABS: Other Cells Body Fluid 6 %
--- NOTE | 2019-04-22 14:51 | OT.IP.TRT ---
Current Diagnoses Metabolic encephalopathy (04/19/19) Occupational Therapy Treatment Note M2 OT-IP Current Condition Start: 04/21/19 12:21 Freq: Status: Active Protocol: Document 04/21/19 10:20 [facility] (Rec: 04/21/19 14:23 [facility] [id number]) Occupational Therapy Current Condition Current Condition Evaluation Date 04/21/19 Treatment Diagnosis Acute hepatic encephalopathy, decreased self-care Diagnosis Onset Date 04/19/19 Weight Bearing Status Weight Bearing Status Weight Bear as Tolerated M3 OT- IP Subjective and Pain Start: 04/21/19 12:21 Freq: Status: Active Protocol: Document 04/22/19 14:48 [facility] (Rec: 04/22/19 14:50 [facility] [id number]) OT- Subjective Occupational Therapy Visit Type Type Patient Refusal Notes Attempted to see pt in PM for OT treatment. Pt adamant of staying in bed and not wanting to get up. OT explained the importance of getting up as pt complaining of back stiffness . Pt refusing to go to skilled rehab but also realizes unable to care for himself. OT still recommending home with 24/7 assist or skilled rehab.
--- NOTE | 2019-04-22 15:38 | CM.DPC ---
Addendum entered by Meenakshi Smith 04/22/19 15:52: Received return phone call from Francia at [facility]. They are reviewing for admit. KJS Addendum entered by Meenakshi Smith 04/22/19 15:50: APS to be notified at time of discharge. Contact is Tawnya Haas # [phone]. Original Note: DCP/continued: Reviewed chart. Received call from patient's sister Mika re: d/c plan? Notified Mika that current plan is home with home health? Mika agrees with plan. She reports that herself and sister/Elba have being trying to assist. Mika has been discussing long-term options with Liliana at [facility]. Mika does not believe that long-term SNF or HH is covered under patient's [place] benefit. Family does want HH. They do not feel quite ready for hospice at this time. Sister in agreement to use paient's Medicare for HH. Orders and F2F obtained. Patient somewhat drowsy today from procedure and denies having any choice in HH agencies. WORK ADJUSTMENT INSTRUCTOR asked MICHELLE/Izabella to fax to [facility] because they cover [employer] and [place] if it is determined they will cover any HH expenses. Sister also requesting prescription from MD for hospital bed at home. Sister in agreement to pay for bed if it is not covered by Medicare or [facility]. Sister agreeable to [facility] [place] for bed and made aware that they also are contracted with hospice if patient/family decide that they would like use hospice at some point. P: Family to be at [facility] tomorrow around 10:30AM. Will leave note for ARUNA/Kadi to follow up and finalize home health and assist with obtaining bed if MD in agreement. PCP is Dr. Bennie Mercer. ARUNA Gonzalez
[2019-04-22] MEDS: TAMSULOSIN 0.4 MG CAPSULE PO (21:14)
[2019-04-23] MEDS: ACETAMINOPHEN 325 MG TABLET 650 MG PO ×2 (02:17→16:47)
[2019-04-23 03:00] VITALS: BP 96/69; PULSE 97; RESP 15; TEMP 36.6; O2SAT 95
[2019-04-23 06:01] LABS: INR 1.6 (0.9-1.3); Prothrombin Time 18.5 SECONDS (10.1-12.7)
[2019-04-23 06:04] LABS: PTT Partial Thromboplastin Tim 39 SECONDS (26.4-36.2)
[2019-04-23 06:06] LABS: Add Manual Diff / Slide Review NO; Basophils Absolute Auto 100 /uL (0-100); Basophils Percent Auto 1.3 % (0-2); Eosinophils Absolute Auto 100 /uL (0-450); Eosinophils Percent Auto 1.8 % (2-4); Hematocrit 34.2 % (41-53); Hemoglobin 11.3 g/dL (13.5-17.5); Lymphocytes Absolute Auto 1700 /uL (1100-4500); Mean Corpuscular HGB Conc 33.1 % (30-36); Mean Corpuscular Hemoglobin 33.4 PG (26-34); Mean Corpuscular Volume 100.7 fL (80-100); Monocytes Absolute Auto 1100 /uL (0-900); Monocytes Percent Auto 16.4 % (3-14); Neutrophils Absolute Auto 3600 /uL (1500-7000); Neutrophils Percent Auto 54.5 % (50-75); Platelet Count 110 X10^3/uL (150-400); Red Cell Distribution Width 15.8 % (11.6-14.8); White Blood Cell Count 6.5 X10^3/uL (4.5-11.0)
[2019-04-23 06:07] LABS: Blood Urea Nitrogen 6 mg/dL (9-20); Calcium 9.5 mg/dL (8.4-10.2); Carbon Dioxide 23 mmol/L (22-32); Chloride 111 mmol/L (98-107); Estimated Glomerular Filt Rate > 60.0 mL/min (>60); Glucose 100 mg/dL (80-110); HEMOLYSIS < 15 (0-50); Magnesium 1.6 mg/dL (1.6-2.3); Sodium 139 mmol/L (137-145)
[2019-04-23 07:35] VITALS: BP 92/47; PULSE 93; RESP 18; TEMP 36.1; O2SAT 99
--- NOTE | 2019-04-23 10:10 | PM.DS.1 ---
History of Present Illness History of Present Illness Date Patient Seen: 04/23/19 Time Patient Seen: 10:18 Chief complaint: Weakness Narrative: As per OCHOA Kaiser: Junior Stone is a 64 y.o. male with a history of alcoholism and liver cirrhosis, tobacco dependence recently discharged for hepatic encephalopathy on April 07, hypercalcemia associated with hyperparathyroidism, and metabolic derangements returns today for elevated ammonia levels. Out of town and local family members were available to provide a history on the patient. They stated upon discharge, he continued alcohol abstinence, but did not take lactulose because he objected to the diarrhea. Stated he was not eating except for a few bites every few days, most of the time staying in bed. He became a 3-person assist with his family and they were unable to provide any more care for him. Patient is very lethargic and unable to provide a history, only that he did not want to continue to take the lactulose. Initially, I declined the admission, family stated they wanted to have him admitted for hospice. The ED provider then spoke to the family and the patient and he agreed to take the lactulose until he was clear and able to tell his family what further he wanted to do. During his prior admission, they discussed re-hab, which he refused due to his not wanting to quit smoking. Discharge Providers Provider Date of admission: 04/19/19 00:18 Discharge Date: 04/23/19 Consults: 04/19/19 08:05 Consult to LAWNMOWER MECHANIC - Talend Developer Routine Comment: [facility] Consult: Substance Abuse Assess APS/CPS Crisis Referral 04/19/19 21:11 Consult to Occupational Therapy Evaluate & Treat Comment: Physician Instructions: Evaluate and treat Consult to Physical Therapy Evaluate & Treat Comment: Physician Instructions: Evaluate and Treat 04/22/19 14:58 Consult to Care Management Routine Comment: consult 04/22/19 15:00 Consult to Home Health Routine Comment: DX: heptic encephalopathy Reason For Exam: Home health for RN/PT/OT/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 Acute decompensated alcoholic liver cirrhosis with hepatic encephalopathy and SBP, present on admission. Active. 2. Acute spontaneous bacterial peritonitis, present on admission. Active. 3. Acute hepatic encephalopathy, present on admission. Resolving. 4. Acute hypomagnesemia, present on admission. Active. 5. Acute on chronic severe protein calorie malnutrition, present on admission 6. Chronic alcohol dependence, present on admission. 7. Tobacco dependence, chronic, present on admission. Stable. 8. Benign prostatic hypertrophy, chronic, present on admission. Stable. 9. History of hypercalcemia secondary to hyperparathyroidism. Hospital Course: Edson tSone is a 64-year-old male with a past medical history significant for decompensated alcoholic liver cirrhosis with complication of hepatic encephalopathy and SBP, alcohol dependence, nicotine dependence, chronic back pain, and BPH who presented to the ED via EMS for confusion, weakness, and coarse breath sounds, he is admitted for and currently being treated for SBP which has been diagnosed clinically. Plan is for diagnostic paracentesis today. 1. Acute decompensated alcoholic liver cirrhosis with hepatic encephalopathy and SBP, present on admission. Active. -Patient presented with hepatic encephalopathy, mild 3rd spacing with ascites and peripheral edema and mild abdominal pain -Liver function impaired with INR 1.6 and albumin 2.3. Platelets low normal at 152. MELD 17 down to 16. Child Alves Class C. -Previous CT abdomen and pelvis with contrast in 03/2019 demonstrated cirrhosis and early portal hypertension. -Alcohol level negative. Patient has reportedly not been drinking alcohol since day after discharge approximately 10 prior to admission. -Continue strict I&O and daily weights with diuresis. Net +2 L. -Continue low-sodium diet less than 2 g daily and fluid restriction of 1.5 L. -Continue to monitor electrolytes closely and replete as necessary. -Started 2:1 spironolactone to furosemide for diuresis and treat ascites/3rd spacing. Contine lasix 40 mg daily and aldactone 100 mg daily. -Continue lactulose 30 g 3 times daily until having 2-3 BMs per day. Continue rifaximin 550 mg twice daily. -Continue nadolol 20 mg daily to treat portal hypertension. -Recommended outpatient referral to hepatology for further evaluation and treatment. 2. Acute spontaneous bacterial peritonitis, present on admission. Active. -Patient had mild ascites with significant tenderness to palpation of abdomen and hepatic encephalopathy which is indicative of SBP on admission. -Received IV fluid in ED and on admission for unclear reason? Discontinued IV fluids as patient is clearly 3rd spacing and diuresed as above which improved blood pressure. -Diagnostic paracentesis was able to be performed on hospital day 3, after 4 doses of antibiotics had been given. Negative for SBP by cell count, SAAG >1.1 with low albumin consistent with cirrhosis etiology. -Blood cultures x2 have no growth to date. -Patient received 5 days of ceftriaxone. -Given no confirmed diagnosis by cell count, will hold on SBP prophylaxis as outpatient. 3. Acute hepatic encephalopathy, present on admission. Resolved. -Initial ammonia level 68 which is higher than on previous admission. -Continue lactulose 30 g 4 times daily or until having 2-3 bowel movements per day. During his last admission, he declined to take it, family members are present to attempt to persuade him to take it. Started and will continue rifaximin 550 mg twice daily. -Family is considering hospice but would like for the patient's mentation to clear and communicate his desires prior to placing on hospice. 4. Acute hypomagnesemia, present on admission. Active. -Initial magnesium level 1.5. -Continue magnesium chloride 128 mg daily. 5. Acute on chronic severe protein calorie malnutrition, present on admission -Encourage PO intake of food. Continue low-sodium diet less than 2 g daily and fluid restriction of 1.5 L. -Continue aspiration precautions due to his lethargy. 6. Chronic alcohol dependence, present on admission. -Alcohol level negative. Patient has reportedly not been drinking alcohol since day after discharge approximately 10 days ago. -Continue home thiamine 100 mg daily and folic acid 1 mg daily. 7. Tobacco dependence, chronic, present on admission. Stable. -Patient smokes 3 packs per day, advised smoking cessation. 8. Benign prostatic hypertrophy, chronic, present on admission. Stable. -Continue tamsulosin 0.4 mg daily at bedtime. 9. History of hypercalcemia secondary to hyperparathyroidism. -Patient was previously referred for outpatient surgical evaluation but it is unclear if this has been pursued. Once his mentation improves, if he wishes to proceed with surgical evaluation he can be referred by his PCP at the [facility]. Exam Vital Signs (past 8 hours): - 04/23/19 03:00 04/23/19 07:35 Temperature 97.9 F 97.0 F L Pulse Rate 97 H 93 H Respiratory Rate 15 18 Blood Pressure 96/69 92/47 L Pulse Oximetry 95 99 Oxygen Delivery Method Room Air Oxygen Flow Rate 0 Narrative Exam Narrative: General: Older gentleman lying in bed and in no acute distress, appears older than stated age in chronically ill, dusky skin color, awake, alert, more conversant. HEENT: Normocephalic, atraumatic. External ears without defect. Pupils equal, round, and reactive to light. Anicteric sclerae, moist conjunctivae, and no lid lag. Oropharynx free of erythema and cobble stoning with moist mucosa. Neck: Supple with full range of motion. No jugular venous distension. No lymphadenopathy or thyromegaly. Cardiovascular: Regular rate and rhythm without murmurs, rubs, or gallops appreciated Pulmonary: Clear to auscultation bilaterally with bibasilar crackles and upper airway rhonchi. No wheezes. Normal respiratory effort without use of accessory muscles. Abdomen: Soft, positive fluid wave consistent with mild ascites, tympanic bowel sounds, mild diffuse tenderness to palpation, nondistended. No hepatosplenomegaly or masses appreciated. Extremities: No clubbing, cyanosis, or edema. Skin: Normal temperature, turgor, and texture; no rash, ulcers, or subcutaneous nodules appreciated. Patient has stigmata of liver disease including palmar erythema, asterixis, spider angiomata and telangiectasias on face. No caput medusae. Neurological: Cranial nerves grossly intact. Strength equal bilaterally, +5/5 in UE and LE. Objective Labs Result Diagrams: 04/23/19 05:34 04/23/19 05:34 Labs: Laboratory Results - last 24 hr 04/22/19 04/22/19 04/22/19 12:40 12:40 12:40 WBC RBC Hgb Hct MCV MCH MCHC RDW Plt Count Neut % (Auto) Lymph % (Auto) [place] % (Auto) Eos % (Auto) Baso % (Auto) Neut # (Auto) Lymph # (Auto) [place] # (Auto) Eos # (Auto) Baso # (Auto) PT INR APTT Sodium Potassium Chloride Carbon Dioxide BUN Creatinine Estimated GFR BUN/Creatinine Ratio Glucose Calcium Magnesium Fluid Color Yellow Fluid Appearance Clear Fluid RBC 303 Fld Tot Nucleated Cell 85 Fluid Polynuclear WBCs 10 Fluid Mononuclear WBCs 84 Fluid Eosinophils 0 Fluid Other Cells 6 Body Fluid Clot No clots present Fluid Total Protein < 2.0 Fluid Albumin < 1.0 04/23/19 04/23/19 04/23/19 05:34 05:34 05:34 WBC 6.5 RBC 3.40 L Hgb 11.3 L Hct 34.2 L MCV 100.7 H MCH 33.4 MCHC 33.1 RDW 15.8 H Plt Count 110 L Neut % (Auto) 54.5 Lymph % (Auto) 26.0 [place] % (Auto) 16.4 H Eos % (Auto) 1.8 L Baso % (Auto) 1.3 Neut # (Auto) 3600 Lymph # (Auto) 1700 [place] # (Auto) 1100 H Eos # (Auto) 100 Baso # (Auto) 100 PT 18.5 H INR 1.6 H APTT 39 H Sodium 139 Potassium 4.0 Chloride 111 H Carbon Dioxide 23 BUN 6 L Creatinine 0.60 L Estimated GFR > 60.0 BUN/Creatinine Ratio 10.0 Glucose 100 Calcium 9.5 Magnesium 1.6 Fluid Color Fluid Appearance Fluid RBC Fld Tot Nucleated Cell Fluid Polynuclear WBCs Fluid Mononuclear WBCs Fluid Eosinophils Fluid Other Cells Body Fluid Clot Fluid Total Protein Fluid Albumin Discharge Plan Discharge Plan Patient Disposition: Home Health Service Transfer to: [facility] Discharge comment: You were admitted the hospital with altered mental status because you were not taking your lactulose. You should continue this medication at home so that you have approximately 3 bowel movements each day. You have also been prescribed medications to trying keep the amount of fluid in your abdomen down. You should continue these every day and we talked before he left about what can happen if you do not take these medications. You will need to follow up with her primary care provider for further management of these medications. They may also choose to send you to a liver specialist. Discharge Med Rec/Prescriptions Prescriptions: New acetaminophen 325 mg Tablet 650 mg PO Q6HR PRN (Reason: As Needed For Fever/Mild Pain) 30 Days Qty: 60 RF: 0 lactulose 20 gram/30 mL Solution 30 gm PO TID 30 Days Qty: 1575 RF: 0 furosemide 40 mg tablet 40 mg PO DAILY 30 Days Qty: 30 RF: 0 magnesium chloride [Mag-Delay] 64 mg tablet,delayed release (DR/EC) 128 mg PO DAILY 30 Days Qty: 60 RF: 0 nadolol 20 mg tablet 20 mg PO DAILY 30 Days Qty: 30 RF: 0 Xifaxan 550 mg Tablet 550 mg PO BID 30 Days Qty: 60 RF: 0 spironolactone 100 mg tablet 100 mg PO DAILY 30 Days Qty: 30 RF: 0 Continued thiamine HCl (vitamin B1) [Vitamin B-1] 100 mg Tablet 100 mg PO DAILY 30 Days Qty: 30 RF: 0 folic acid 1 mg Tablet 1 mg PO DAILY 30 Days Qty: 30 RF: 0 tamsulosin 0.4 mg capsule 0.4 mg PO BEDTIME 30 Days Qty: 30 RF: 0 Discontinued lactulose 20 gram/30 mL Solution 20 gm PO BID 30 Days Qty: 1800 RF: 0 Provider Discharge Instructions Diet: Low-sodium Diet comment: Low sodium (2g max) diet with 1.5 L fluid restriction Activity: As tolerated. Visit Report/Discharge Packet Instructions: Alcohol Use Disorder, How to Prevent Falls, Rifaximin, Lactulose, DI for Hepatic Encephalopathy Visit Report Forms: Patient Portal/API, Stroke Signs & Symptoms Quality VTE Deep Vein Thrombosis/Pulmonary Embolism Present on Admission: No
[2019-04-23] MEDS: ENOXAPARIN 40 MG/0.4 ML SYRINGE SUBCUT (10:59)
[2019-04-23] MEDS: NICOTINE 21 MG PATCH TOP (10:59)
[2019-04-23] MEDS: THIAMINE 100 MG TABLET PO (11:01)
[2019-04-23] MEDS: RIFAXIMIN 550 MG TABLET PO (11:02)
[2019-04-23] MEDS: MAGNESIUM CHLORIDE 64 MG TABLET 128 MG PO (11:02)
[2019-04-23] MEDS: FOLIC ACID 1 MG TABLET PO (11:02)
[2019-04-23] MEDS: SODIUM CHLORIDE 0.9% FLUSH 10 ML IV (11:03)
[2019-04-23 11:05] VITALS: BP 98/65; PULSE 103; RESP 18; TEMP 36.3; O2SAT 99
--- NOTE | 2019-04-23 11:40 | CM.DPC ---
DCP Discharge Home with HH Per MD, pt medically stable to d/c today and pt still refusing SNF rehab and preference is to d/c home but agreeable with HH. SW received a call from pt's 2 supportive sisters Elba and Mika who are continuing to struggle to get a hospital bed for the pt at home. They have called [facility] and a few other DME providers without success. SW also provided local [facility] providers ([facility], [facility], [facility], [facility]) to call for additional information on their hospital bed availability. Sister's aware that they may require pt to live in their area and some only open on certain days and they feel that they can manage with pt's current bed for a few days if needed. Sisters confirm that they have decided not to pursue Hospice yet at this time and want to see how pt does at home first but aware of how to contact [facility] if needed. SW confirmed that sister's helping to coordinate pt's services and request [facility] to call their cell phone for scheduling the first visit. SW called Mariya MENDOZA and confirmed they can accept the referral and are aware of calling sisters to schedule first visit. Sister Elba requested pt to get a shower prior to d/c so that they have a couple days at home without having to worry about showering pt and SW requested SLICING MACHINE TENDER or OT to help prior to d/c. Per RN, pt to receive his final IV-Abx dose around 1230 prior to d/c home later this afternoon. SW updated MD and RN on sisters likely arriving later in the afternoon to provide transport. Plan: Patient to d/c home later today via sisters POV home with Mariya MENDOZA to open the pt to service to attempt rehab prior to considering Hospice. ARUNA Austin
[2019-04-23 11:51] VITALS: O2SAT 99
--- NOTE | 2019-04-23 12:35 | OT.IP.TRT ---
Current Diagnoses Metabolic encephalopathy (04/19/19) Occupational Therapy Treatment Note M2 OT-IP Current Condition Start: 04/21/19 12:21 Freq: Status: Active Protocol: Document 04/21/19 10:20 [facility] (Rec: 04/21/19 14:23 [facility] [id number]) Occupational Therapy Current Condition Current Condition Evaluation Date 04/21/19 Treatment Diagnosis Acute hepatic encephalopathy, decreased self-care Diagnosis Onset Date 04/19/19 Weight Bearing Status Weight Bearing Status Weight Bear as Tolerated M3 OT- IP Subjective and Pain Start: 04/21/19 12:21 Freq: Status: Active Protocol: Document 04/23/19 11:50 [facility] (Rec: 04/23/19 12:35 [facility] [id number]) OT- Subjective Occupational Therapy Visit Type Type Patient Refusal Notes Pt's sister requesting that pt be showered today prior to going home. Pt refused to be showered as stated did this morning, however pt not remembering accurately as showered yesterday with Vikki ALEJANDRO. M4 OT- IP ADL's Start: 04/21/19 12:21 Freq: Status: Active Protocol: Document 04/21/19 10:20 [facility] (Rec: 04/21/19 14:23 [facility] [id number]) OT ADL-Dressing General Eval Lower Body Dressing Ability Maximum Assistance Areas Needing Assistance Socks OT ADL-Toileting Comments OT Toileting Comments Pt insisting only male staff to assist. Per PAVER INSTALLER pt needing assist for all hygiene needs. M5 OT- IP IADL's Start: 04/21/19 12:21 Freq: Status: Active Protocol: Document 04/21/19 10:20 [facility] (Rec: 04/21/19 14:23 [facility] [id number]) OT-Instrumental Activities of Daily Living Home Safety Awareness Awareness of Need for Assistance at Home Decreased Awareness Medication Management Medication Management Comments At this time pt unable to manage appropriately at home and will need assist. Money Management Money Management Comments Pt's sister managed all finances. Meal Preparation Meal Preparation Comments Pt states just has juice in the morning, maybe sandwich for lunch and microwave something for dinner. Pt's sister states he has meals on Wheel however often does not eat. Driving Driving Comments Pt's car not working and therefore not driving at this time. M6 OT- IP Functional Cognition Start: 04/21/19 12:21 Freq: Status: Active Protocol: Document 04/21/19 10:20 [facility] (Rec: 04/21/19 14:23 [facility] [id number]) Cognitive Factors Limiting Selfcare Function Cognitive Ability Level of Alertness Alert Patient Orientation Name,Month Attention Span Ability Capable of Focused Attention, Capable of Sustained Attention Ability to Follow Commands Able to Follow One Step Commands Memory Description Short Term Impaired Safety Awareness Underestimates Need for Assistance Cognitive Tests SLUMS Pt scored 19/30 normal score for pt's education is 27/30. Pt score implies dementia. Pt mainly having difficulty with short term memory items, unable to draw and clock face and put the correct hours hands in, and pt states 1998 for the year. Cognitive Comments Cognitive Assessment Comments Pt able to follow simple commands. Pt very fatigued and not wanting to do more besides cognitive assessment. OT- Vision and Hearing OT- Vision Assessment Vision Assessment Comments Pt states glasses are broken from last fall that he crashed on the counter and that he has not gotten any new ones since. M7 OT- IP Mobility and Balance Start: 04/21/19 12:21 Freq: Status: Active Protocol: Document 04/21/19 10:20 [facility] (Rec: 04/21/19 14:23 [facility] [id number]) OT- Bed Mobility Assessment Sit to Supine Sit to Supine Assist Minimal Assistance OT-Transfer Assessment Sit to and From Stand Sit to and from Stand Minimal Assistance Transfers Transfer Ability Minimal Assistance Technique Transfer Destination Bed Devices Transfer Assistive Devices Gait Belt,Front Wheeled Walker OT- Balance Assessment Sitting Balance and Reactions Static Sitting Balance Ability Good Standing Balance and Reactions Static Standing Balance Ability Fair M8 OT- IP Objective Assessments Start: 04/21/19 12:21 Freq: Status: Active Protocol: Document 04/21/19 10:20 [facility] (Rec: 04/21/19 14:23 [facility] [id number]) OT Gross Range of Motion Upper Extremity Range of Motion Assessment Bilaterally Impaired OT Strength Comments Strength Comments Decreased BUE strength 3-/5 to 3+/5 from proximal to distal. M9 OT- IP Assessment and Plan Start: 04/21/19 12:21 Freq: Status: Active Protocol: Document 04/21/19 10:20 [facility] (Rec: 04/21/19 14:23 [facility] [id number]) OT Summary Assessment and Plan Potential Rehabilitation Potential Fair Analytic Complexity at Evaluation Low Summary OT Impairments Strength,Balance,Functional Cognition,Functional Mobility, Grooming,Dressing,Toileting, Bathing,Toilet Transfers, Shower Transfers Progress Towards Goals Slow Progress due to Activity Tolerance,Slow Progress due to Cognition Assessment Summary Pt low complexity and main barriers are decreased safety awareness, short term memory, decreased ADl's and functional mobility. At this time due to decreased functional cognition, safety awareness, and functional mobility suggested to have 24/7 assist if going home or go to skilled rehab fist to get safeer with mobility needs. Per pt has a fall on a weekly basis. Goals Grooming Goal Standby Assistance Dressing Goal Standby Assistance Toileting Goal Standby Assistance Toilet Transfer Goal Standby Assistance Patient/Caregiver Education Goal Caregiver Independent Assisting Patient Days to Meet Goals 7 Frequency of Treatment Frequency Of Treatment Once a Day Treatment Plan OT Treatment Plan ADL Training,Functional Cognition Training,Functional Mobility,Patient/Family Education,Discharge Planning Other Treatment Recommendations and Next Stand with FWW for grooming Treatment Focus needs. Discharge Recommendations OT Discharge Recommendations SNF Rehab Other Discharge Recommendations If going home 24/7 assist. Home Equipment Needs Tub bench, HHSP
[2019-04-23] MEDS: CEFTRIAXONE 2 GM/50 ML FROZ.PIGGY IV (14:29)
[2019-04-23] MEDS: POTASSIUM CHLORIDE 20 MEQ TAB 40 MEQ PO (16:46)
--- NOTE | 2019-04-23 18:44 | PC.NURSE ---
A&OX3. pt laying in bed. gave tylenol for back pain. denied any nausea, chest pain or sob. Sister Elba will be picking up patient tonight. call light in reach. bed alarm active.
== END 2019-04-23 19:58 | disposition home health service (06) | DRG 441 ==
LOC: ED 22:55 → AC 04-19 00:19
PROVIDERS: Internal Medicine; Admitting Provider Nurse Practitioner Family; Emergency Provider Emergency Medicine; Visit Provider Nurse Practitioner Family
DX: K72.00 Acute and subacute hepatic failure without coma (principal); E43 Unspecified severe protein-calorie malnutrition; K65.2 Spontaneous bacterial peritonitis; Z68.29 Body mass index [BMI] 29.0-29.9, adult; F10.20 Alcohol dependence, uncomplicated; T47.3X6A Underdosing of saline and osmotic laxatives, initial encounter; Z91.128 Patient's intentional underdosing of medication regimen for other reason; E83.42 Hypomagnesemia; K70.31 Alcoholic cirrhosis of liver with ascites; F17.210 Nicotine dependence, cigarettes, uncomplicated; E21.3 Hyperparathyroidism, unspecified; N40.0 Benign prostatic hyperplasia without lower urinary tract symptoms; G89.29 Other chronic pain
CPT/HCPCS: 36415; 36430; 71045; 76705; 80048; 80053; 80076; 80305; 80320; 80329; 81001; 82042; 82140; 83605; 83690; 83735; 84100; 84145; 84157; 85025; 85610; 85730; 86900; 86901; 86927; 87040; 87070; 87075; 87205; 89051; 94760; 96360; 96361; 97162; 97165; 97530; 99283; 99284; 99406; P9016; G0480; J0696; J1650; J1940; J2270; J2405; P9041

== ENCOUNTER 2019-05-30 07:11 | Emergency (ER) | payer OTHER, SELFPAY ==
[2019-04-19 00:55] VITALS: BMI 31.5
[2019-05-30] VITALS (12 sets, daily range): BP systolic 105–147; BP diastolic 81–94; PULSE 101–110; RESP 10–21; TEMP 36.3–36.9; O2SAT 93–100; BMI 30.1
--- NOTE | 2019-05-30 | DI.RAD.S_ITS ---
PROCEDURE: XR CHEST FOR PICC 1V INDICATIONS: PICC PLACEMENT COMPARISON: [facility], , XR CHEST 1V, 04/18/2019, 22:09. FINDINGS: PICC was placed by the intravenous therapy team from the left side. Fluoroscopic spot film demonstrates the tip of PICC projecting to the area of distal SVC IMPRESSION: Tip of PICC projects to the area of distal SVC Dictated by: Niesha Anderson MD, PhD on 05/30/2019 at 9:12 Approved by: Niesha Anderson MD, PhD on 05/30/2019 at 9:12
--- NOTE | 2019-05-30 07:18 | DI.CT.S_ITS ---
PROCEDURE: CT ABDOMEN PELVIS W CON INDICATIONS: GI bleeding ab pain TECHNIQUE: After the administration of intravenous contrast, 5 mm thick sections acquired from the diaphragm to the symphysis. 5 mm coronal and sagittal reformats were acquired. For radiation dose reduction, the following was used: automated exposure control, adjustment of mA and/or kV according to patient size. COMPARISON: [facility], CT, CT ABDOMEN PELVIS W CON, 03/30/2019, 20:00. FINDINGS: Image quality: Excellent. ABDOMEN: Lung bases: Lung bases are clear. Heart size is normal. Solid organs: Liver is small in size and has nodular margins suggestive of hepatic cirrhosis.. Gallbladder is distended with prominent gallbladder wall. Common bile duct is prominent measuring up to 1.1 cm. There is a 3.2 cm hypoattenuating lesion involving the superior margin of the tail of pancreas may represent a malignancy or pseudocyst. Spleen is normal in size and enhancement. No adrenal nodules. Kidneys demonstrate normal size and enhancement, without hydronephrosis. Peritoneum and bowel: Bowel loops demonstrate normal wall thickness and caliber. Large amount of ascites scattered throughout the abdomen and pelvis. No free air. The appendix is normal. Nodes and vessels: No retroperitoneal or mesenteric adenopathy by size criteria. Aorta and inferior vena cava are normal in size. Scattered atherosclerotic calcifications involving the abdominal and pelvic vasculature. Miscellaneous: No ventral hernias. PELVIS: Genitourinary: Bladder wall thickness is normal. Miscellaneous: No inguinal adenopathy. Small bilateral fat and fluid containing inguinal hernias. Neural stimulator noted in the left buttock subcutaneous soft tissues with stimulator lead projecting into the thoracic spine. Bones: No suspicious bony lesions. No vertebral body compression fractures. Spine degenerative disc disease and facet arthropathy. IMPRESSION: 1. Hepatic cirrhosis. 2. Large amount of ascites. 3. 3.2 cm hypoattenuating lesion arising from the tail of pancreas. Pancreatic carcinoma cannot be excluded. Recommend dedicated CT scan abdomen with and without contrast (pancreatic protocol) when clinically feasible. 4. No evidence of bowel obstruction. 5. No free intraperitoneal air. 6. Gallbladder wall prominence and mild dilatation of the common bile duct. Recommend abdominal ultrasound if there is clinical concern for biliary disease. Dictated by: Niesha Anderson MD, PhD on 05/30/2019 at 11:09 Approved by: Niesha Anderson MD, PhD on 05/30/2019 at 11:17
--- NOTE | 2019-05-30 07:24 | ED_ITS ---
HPI - GI Bleed General Chief complaint: GI Bleed Stated complaint: bloody emesis Time Seen by Provider: 05/30/19 07:17 Source: patient, EMS and old records reviewed Mode of arrival: EMS Limitations: no limitations History of Present Illness HPI Narrative: Patient is a 64-year-old male with history of cirrhosis and a lcoholism, presenting this morning with dark red hematemesis. He says it started about 45 minutes ago he had numerous episodes. He has been complaining of lower abdominal pain for the last 1-2 days. He has had progressive distention of his is abdomen over the last 1 week. He has also had blood in his stool for an unknown number days. MD complaint: blood streaked emesis Related Data Previous Rx's Medication Instructions Recorded acetaminophen 650 mg PO Q6HR PRN 30 Days #60 tab 04/23/19 furosemide 40 mg PO DAILY 30 Days #30 tab 04/23/19 lactulose 30 gm PO TID 30 Days #1575 ml 04/23/19 magnesium chloride [Mag-Delay] 128 mg PO DAILY 30 Days #60 tab 04/23/19 nadolol 20 mg PO DAILY 30 Days #30 tab 04/23/19 rifaximin [Xifaxan] 550 mg PO BID 30 Days #60 tab 04/23/19 spironolactone 100 mg PO DAILY 30 Days #30 tab 04/23/19 Allergies Allergy/AdvReac Type Severity Reaction Status Date / Time No Known Drug Allergies Allergy Verified 05/30/19 07:47 Review of Systems Review of Systems ROS Unobtainable: All systems reviewed & are unremarkable except as noted in HPI and below Constitutional Constitutional: Denies chills, Denies fever(s), Denies lethargy and Denies weakness Eyes Eyes: Denies change in vision, Denies eye discharge, Denies irritation and Denies loss of vision ENT Ears, Nose, Mouth, and Throat: Denies change in voice, Denies neck pain and Denies sore throat Cardiovascular Cardiovascular: Denies chest pain, Denies irregular heart rhythm, Denies lightheadedness, Denies palpitations, Denies dyspnea, Denies dyspnea on exertion and Denies orthopnea Respiratory Respiratory: Denies cough, Denies dyspnea, Denies dyspnea on exertion and Denies wheezing Gastrointestinal Gastrointestinal: Reports as per HPI and Reports abdominal pain Genitourinary Genitourinary: Denies hematuria, Denies flank pain, Denies urinary incontinence and Denies urinary urgency Musculoskeletal Musculoskeletal: Denies neck pain Integumentary/Breasts Skin/Breast: Denies pruritus, Denies erythema, Denies rash and Denies wounds Neurologic Neurologic: Denies loss of vision and Denies weakness Endocrine Endocrine: Denies palpitations Allergic/Immunologic Allergic/Immunologic: Denies wheezing Patient History Medical History Alcohol abuse (Acute) Back pain (Inactive) Cirrhosis (Acute) Encephalopathy, hepatic (Acute) Pancreatitis (Inactive) Surgical History Surgical history unknown (Acute) Family History Mother Hypothyroidism Sister Hypothyroidism Father Diabetes mellitus Social History household members: none Smoking Status: Current every day smoker alcohol intake: current Smoking Status: Current every day smoker alcohol intake frequency: other Substance Use Type: does not use and painkillers Exam Initial Vital Signs Initial Vital Signs: Vital Signs Temperature 98.4 F 05/30/19 07:06 Pulse Rate 106 H 05/30/19 07:06 Respiratory Rate 13 05/30/19 07:06 Blood Pressure 123/87 05/30/19 07:06 Pulse Oximetry 100 05/30/19 07:06 GENERAL: Alert chronically ill-appearing appears older than stated age HEENT: Head atraumatic,EOMI, pupils reactive, face symmetric, moist mucous membranes CARDIOVASCULAR: Regular rate and rhythm without murmurs, rubs or gallops. RESPIRATORY: Breath sounds equal bilaterally, no wheezes rales or rhonchi. ABDOMEN: Distended tender all lower quadrant looks like fluid wave EXTREMITIES: Normal range of motion, no clubbing or edema. Neurovascularly intact NEUROLOGICAL: Alert and oriented x4. Moving all extremities SKIN: Warm, dry, no laceration, no petechiae, no rashes or lesions. Course Orders Ordered: ED Orders 05/30/19 07:18 CT abdomen pelvis w con Stat 05/30/19 08:45 Type and Screen Stat 05/30/19 08:53 Complete Blood Count AUTO DIFF Stat Comprehensive Metabolic Panel Stat Lactate (Lactic Acid) Stat Lipase Stat Partial Thromboplastin Time Stat Prothrombin Time INR Stat 05/30/19 09:29 Ammonia (NH3) Stat 05/30/19 12:02 Hemoglobin and Hematocrit Stat 05/30/19 12:37 US abdomen limited Stat Discontinued Medications Hydromorphone HCl (Dilaudid) 0.5 mg IV NOW ONE Stop: 05/30/19 07:29 Last Admin: 05/30/19 08:44 Dose: 0.5 mg Documented by: GALO Hydromorphone HCl (Dilaudid) 1 mg IV NOW ONE Stop: 05/30/19 10:23 Last Admin: 05/30/19 10:29 Dose: 1 mg Documented by: SAMAN Pantoprazole Sodium 80 mg/ (Sodium Chloride) 100 mls @ 10 mls/hr IV [facility] Last Infusion: 05/30/19 14:30 Dose: 0 mg/hr, 0 mls/hr [facility]ed [facility] Admin: 05/30/19 09:34 Dose: 8 mg/hr, 10 mls/hr Documented by: [facility] Octreotide Acetate 500 mcg/ (Sodium Chloride) 101 mls @ 5.05 mls/hr IV [facility] Last Infusion: 05/30/19 14:29 Dose: 0 mcg/hr, 0 mls/hr Documented by: RANDAARRINGTO Admin: 05/30/19 09:50 Dose: 25 mcg/hr, 5.05 mls/hr Documented by: EPIFANIO Nicotine (Nicoderm) 21 mg TOP NOW ONE Stop: 05/30/19 14:10 Last Admin: 05/30/19 14:19 Dose: 21 mg Documented by: [facility] Octreotide Acetate (Sandostatin) 50 mcg IV NOW ONE Stop: 05/30/19 07:19 Last Admin: 05/30/19 09:36 Dose: 50 mcg Documented by: [facility] Ondansetron HCl (Zofran) 4 mg IV NOW ONE Stop: 05/30/19 07:19 Last Admin: 05/30/19 08:44 Dose: 4 mg Documented by: GALO Ondansetron HCl (Zofran Odt) 4 mg SL NOW ONE Stop: 05/30/19 08:02 Last Admin: 05/30/19 10:02 Dose: Not Given Documented by: [facility] Pantoprazole Sodium (Protonix) 40 mg IV NOW ONE Stop: 05/30/19 07:19 Last Admin: 05/30/19 09:36 Dose: 40 mg Documented by: HFARRINGTO Consultations Consultation #1: Dr. Gonzalez, hospitalist at [place] would like to rule out spontaneous bacterial peritonitis, but is happy to accept Time: 12:42 Vital Signs Vital signs: Vital Signs - 8 hr 05/30/19 08:00 05/30/19 09:30 05/30/19 09:46 Temperature Pulse Rate 110 H 106 H 110 H Respiratory Rate 17 12 16 Blood Pressure [Left Arm] 105/91 H 126/88 126/88 Pulse Oximetry 97 99 99 05/30/19 10:21 05/30/19 11:23 05/30/19 11:32 Temperature Pulse Rate 101 H 103 H 103 H Respiratory Rate 15 10 L 11 L Blood Pressure [Left Arm] 137/85 121/85 120/86 Pulse Oximetry 96 93 96 05/30/19 12:15 05/30/19 13:08 05/30/19 14:03 Temperature 97.4 F L Pulse Rate 103 H 103 H Respiratory Rate 10 L 10 L Blood Pressure [Left Arm] 117/90 131/81 Pulse Oximetry 99 95 MDM - GI Bleed Lab Data Attestation: I reviewed the patient's lab results. Result diagrams: 05/30/19 12:02 05/30/19 08:53 Labs: Lab Results 05/30/19 05/30/19 05/30/19 Range/Units 08:45 08:53 08:53 WBC 16.7 H (4.5-11.0) X10^3/uL RBC 2.63 L (4.5-5.9) X10^6/uL Hgb 9.2 L (13.5-17.5) g/dL Hct 26.5 L (41-53) % MCV 100.5 H (80-100) fL MCH 34.9 H (26-34) PG MCHC 34.7 (30-36) % RDW 20.0 H (11.6-14.8) % Plt Count 210 (150-400) X10^3/uL Neut % (Auto) 78.0 H (50-75) % Lymph % (Auto) 13.5 L (25-40) % Montgomery % (Auto) 8.2 (3-14) % Eos % (Auto) 0.0 L (2-4) % Baso % (Auto) 0.3 (0-2) % Neut # (Auto) 99665 H (8950-8173) /uL Lymph # (Auto) 2300 (1429-0042) /uL Montgomery # (Auto) 1400 H (0-900) /uL Eos # (Auto) 0 (0-450) /uL Baso # (Auto) 0 (0-100) /uL PT 15.7 H (10.1-12.7) SECONDS INR 1.4 H (0.9-1.3) APTT 34 D (26.4-36.2) SECONDS Sodium (137-145) mmol/L Potassium (3.4-5.1) mmol/L Chloride (98-107) mmol/L Carbon Dioxide (22-32) mmol/L BUN (9-20) mg/dL Creatinine (0.66-1.25) mg/dL Estimated GFR (>60) mL/min BUN/Creatinine Ratio (6-22) Glucose (80-110) mg/dL Lactate (0.7-2.1) mmol/L Calcium (8.4-10.2) mg/dL Total Bilirubin (0.2-1.3) mg/dL AST (17-59) IU/L ALT (<50) IU/L Alkaline Phosphatase (38-126) U/L Ammonia (9-30) umol/L Total Protein (6.3-8.2) g/dL Albumin (3.5-5.0) g/dL Globulin (1.7-4.1) g/dL Albumin/Globulin Ratio (1.0-2.8) Lipase (23-300) U/L Blood Type O Positive Antibody Screen Negative 05/30/19 05/30/19 05/30/19 Range/Units 08:53 08:53 09:29 WBC (4.5-11.0) X10^3/uL RBC (4.5-5.9) X10^6/uL Hgb (13.5-17.5) g/dL Hct (41-53) % MCV (80-100) fL MCH (26-34) PG MCHC (30-36) % RDW (11.6-14.8) % Plt Count (150-400) X10^3/uL Neut % (Auto) (50-75) % Lymph % (Auto) (25-40) % Montgomery % (Auto) (3-14) % Eos % (Auto) (2-4) % Baso % (Auto) (0-2) % Neut # (Auto) (3149-1934) /uL Lymph # (Auto) (6355-3642) /uL Montgomery # (Auto) (0-900) /uL Eos # (Auto) (0-450) /uL Baso # (Auto) (0-100) /uL PT (10.1-12.7) SECONDS INR (0.9-1.3) APTT (26.4-36.2) SECONDS Sodium 132 L (137-145) mmol/L Potassium 4.5 (3.4-5.1) mmol/L Chloride 101 (98-107) mmol/L Carbon Dioxide 26 (22-32) mmol/L BUN 32 H (9-20) mg/dL Creatinine 1.30 H (0.66-1.25) mg/dL Estimated GFR 55.8 L (>60) mL/min BUN/Creatinine Ratio 24.6 H (6-22) Glucose 108 (80-110) mg/dL Lactate 1.7 (0.7-2.1) mmol/L Calcium 11.8 H (8.4-10.2) mg/dL Total Bilirubin 2.5 H (0.2-1.3) mg/dL AST 43 (17-59) IU/L ALT 18 (<50) IU/L Alkaline Phosphatase 233 H (38-126) U/L Ammonia 37.0 H (9-30) umol/L Total Protein 6.2 L (6.3-8.2) g/dL Albumin 2.5 L (3.5-5.0) g/dL Globulin 3.7 (1.7-4.1) g/dL Albumin/Globulin Ratio 0.7 L (1.0-2.8) Lipase 230 (23-300) U/L Blood Type Antibody Screen 05/30/19 Range/Units 12:02 WBC (4.5-11.0) X10^3/uL RBC (4.5-5.9) X10^6/uL Hgb 9.3 L (13.5-17.5) g/dL Hct 26.6 L (41-53) % MCV (80-100) fL MCH (26-34) PG MCHC (30-36) % RDW (11.6-14.8) % Plt Count (150-400) X10^3/uL Neut % (Auto) (50-75) % Lymph % (Auto) (25-40) % Montgomery % (Auto) (3-14) % Eos % (Auto) (2-4) % Baso % (Auto) (0-2) % Neut # (Auto) (4060-1403) /uL Lymph # (Auto) (5061-9088) /uL Montgomery # (Auto) (0-900) /uL Eos # (Auto) (0-450) /uL Baso # (Auto) (0-100) /uL PT (10.1-12.7) SECONDS INR (0.9-1.3) APTT (26.4-36.2) SECONDS Sodium (137-145) mmol/L Potassium (3.4-5.1) mmol/L Chloride (98-107) mmol/L Carbon Dioxide (22-32) mmol/L BUN (9-20) mg/dL Creatinine (0.66-1.25) mg/dL Estimated GFR (>60) mL/min BUN/Creatinine Ratio (6-22) Glucose (80-110) mg/dL Lactate (0.7-2.1) mmol/L Calcium (8.4-10.2) mg/dL Total Bilirubin (0.2-1.3) mg/dL AST (17-59) IU/L ALT (<50) IU/L Alkaline Phosphatase (38-126) U/L Ammonia (9-30) umol/L Total Protein (6.3-8.2) g/dL Albumin (3.5-5.0) g/dL Globulin (1.7-4.1) g/dL Albumin/Globulin Ratio (1.0-2.8) Lipase (23-300) U/L Blood Type Antibody Screen Point of Care Testing Stool Occult Blood Positive MDM Narrative Medical decision making narrative: Patient is noted to be anemic previous hemoglobin 11.3/34.2 today 9.2/26.5, he did have a large black bloody bowel movement in the emergency department. He is hemodynamically stable normal lactic acid. He is given pain medication which has also seem to help. He has prophylactically put on octreotide and Protonix drips. Repeat hemoglobin hematocrit is stable, and slightly improved. Area for paracentesis is marked, however transport will be here in about 30 m inutes and paracentesis will not be done here. He has not received any antibiotics in the emergency department. He has otherwise remained stable no further episodes of bleeding either vomiting or stool. Discharge Plan Departure Patient Disposition: [facility] Clinical Impression: Acute GI bleeding Discharge Date/Time: 05/30/19 14:32 Prescriptions: No Action acetaminophen 325 mg Tablet 650 mg PO Q6HR PRN (Reason: As Needed For Fever/Mild Pain) 30 Days Qty: 60 RF: 0 lactulose 20 gram/30 mL Solution 30 gm PO TID 30 Days Qty: 1575 RF: 0 furosemide 40 mg tablet 40 mg PO DAILY 30 Days Qty: 30 RF: 0 magnesium chloride [Mag-Delay] 64 mg tablet,delayed release (DR/EC) 128 mg PO DAILY 30 Days Qty: 60 RF: 0 nadolol 20 mg tablet 20 mg PO DAILY 30 Days Qty: 30 RF: 0 Xifaxan 550 mg Tablet 550 mg PO BID 30 Days Qty: 60 RF: 0 spironolactone 100 mg tablet 100 mg PO DAILY 30 Days Qty: 30 RF: 0 Referrals: Bennie Mercer DO [Primary Care Provider] -
--- NOTE | 2019-05-30 08:21 | PC.NURSE ---
patient difficult access. DI nurse called for a PICC line
[2019-05-30] MEDS: ONDANSETRON 4 MG/2 ML INJ IV (08:44)
[2019-05-30] MEDS: HYDROMORPHONE 0.5 MG INJ IV (08:44)
[2019-05-30 09:00] LABS: Add Manual Diff / Slide Review NO; Basophils Absolute Auto 0 /uL (0-100); Basophils Percent Auto 0.3 % (0-2); Eosinophils Absolute Auto 0 /uL (0-450); Hematocrit 26.5 % (41-53); Hemoglobin 9.2 g/dL (13.5-17.5); Lymphocytes Absolute Auto 2300 /uL (1100-4500); Lymphocytes Percent Auto 13.5 % (25-40); Mean Corpuscular HGB Conc 34.7 % (30-36); Mean Corpuscular Hemoglobin 34.9 PG (26-34); Mean Corpuscular Volume 100.5 fL (80-100); Monocytes Absolute Auto 1400 /uL (0-900); Monocytes Percent Auto 8.2 % (3-14); Neutrophils Absolute Auto 13100 /uL (1500-7000); Platelet Count 210 X10^3/uL (150-400); Red Blood Cell Count 2.63 X10^6/uL (4.5-5.9); White Blood Cell Count 16.7 X10^3/uL (4.5-11.0)
--- NOTE | 2019-05-30 09:02 | PC.NURSE ---
picc double lumen line palced in upper lt arm baslic vein. tip is in svc. 5cm of picc out at skin site 45cm internal. line palced per hospital protocol pt tollerated procedure well with no problems.
[2019-05-30 09:04] LABS: INR 1.4 (0.9-1.3); Prothrombin Time 15.7 SECONDS (10.1-12.7)
[2019-05-30 09:06] LABS: PTT Partial Thromboplastin Tim 34 SECONDS (26.4-36.2)
[2019-05-30 09:09] LABS: Alanine Aminotransferase 18 IU/L (<50); Albumin 2.5 g/dL (3.5-5.0); Albumin Globulin Ratio 0.7 (1.0-2.8); Alkaline Phosphatase 233 U/L (38-126); Aspartate Aminotransferase 43 IU/L (17-59); BUN Creatinine Ratio 24.6 (6-22); Bilirubin Total 2.5 mg/dL (0.2-1.3); Blood Urea Nitrogen 32 mg/dL (9-20); Calcium 11.8 mg/dL (8.4-10.2); Carbon Dioxide 26 mmol/L (22-32); Chloride 101 mmol/L (98-107); Estimated Glomerular Filt Rate 55.8 mL/min (>60); Globulin 3.7 g/dL (1.7-4.1); Glucose 108 mg/dL (80-110); HEMOLYSIS < 15 (0-50); Lipase 230 U/L (23-300); Potassium 4.5 mmol/L (3.4-5.1); Sodium 132 mmol/L (137-145); Total Protein 6.2 g/dL (6.3-8.2)
[2019-05-30 09:10] LABS: Lactate (Lactic Acid) 1.7 mmol/L (0.7-2.1)
[2019-05-30] MEDS: PANTOPRAZOLE 80 MG in SODIUM CHLORIDE 0.9% 100 ML 10 ML IV (09:34)
[2019-05-30] MEDS: PANTOPRAZOLE 40 MG VIAL IV (09:36)
[2019-05-30] MEDS: OCTREOTIDE 100 MCG/ML VIAL 50 MCG IV (09:36)
[2019-05-30] MEDS: OCTREOTIDE 500 MCG in SODIUM CHLORIDE 0.9% 100 ML 5.05 ML IV (09:50)
[2019-05-30] MEDS: HYDROMORPHONE 1 MG INJ IV (10:29)
--- NOTE | 2019-05-30 11:22 | PC.NURSE ---
cap refill brisk, patient a little pale, skin warm and dry, heart rate regular and tachy at 103
[2019-05-30 12:13] LABS: Hematocrit 26.6 % (41-53); Hemoglobin 9.3 g/dL (13.5-17.5)
--- NOTE | 2019-05-30 12:37 | DI.US.S_ITS ---
PROCEDURE: US ABDOMEN LIMITED INDICATIONS: DEANNA FOR PARA IN ED; SPONTANEOUS BACTERIAL PERITONITIS TECHNIQUE: Real-time focused scanning was performed of the abdomen, with image documentation. COMPARISON: [facility], CT, CT ABDOMEN PELVIS W CON, 05/30/2019, 10:01. FINDINGS: Extensive abdominal ascites is identified with the largest pocket located within the right lower quadrant. The distance from the skin to the level of the intraperitoneal fluid is approximately 2 cm. Beyond the anterior abdominal wall there is approximately 7 cm of fluid before the bowel loops are visualized within it the right lower quadrant. IMPRESSION: Large amount of ascites. Dictated by: Tung Snider M.D. on 05/30/2019 at 14:55 Approved by: Tung Snider M.D. on 05/30/2019 at 14:56
--- NOTE | 2019-05-30 13:07 | PC.NURSE ---
pt resting with eyes closed, no acute distress at this time
--- NOTE | 2019-05-30 14:16 | PC.NURSE ---
report called to BERTO Arzola at [facility], phone number [phone]
[2019-05-30] MEDS: NICOTINE 21 MG PATCH TOP (14:19)
--- NOTE | 2019-05-30 14:26 | PC.NURSE ---
Report to BERTO Faye with [facility]
--- NOTE | 2019-05-30 14:30 | PC.NURSE ---
Infusions to be continued on transport
== END 2019-05-30 14:32 | disposition short-term general hospital (02) ==
PROVIDERS: Emergency Provider Emergency Medicine; PCP Family Medicine
DX: K92.2 Gastrointestinal hemorrhage, unspecified (principal); R79.89 Other specified abnormal findings of blood chemistry
CPT/HCPCS: 36415; 74177; 76705; 80053; 82140; 82272; 83605; 83690; 85014; 85018; 85025; 85610; 85730; 86850; 86900; 86901; 96365; 96366; 96368; 96375; 96376; 99284; C9113; J1170; J2354; J2405; Q9967